=== PATIENT | female | born 1965 | race Caucasian/White ===

== ENCOUNTER 2020-04-24 11:46 | Outpatient (REF) | payer OTHER, SELFPAY ==
[2020-04-24 13:11] LABS: Free T4 (Free Thyroxine) 0.94 ng/dL (0.71-1.85); Thyroid Stimulating Hormone 2.61 uIU/mL (0.32-4.0)
== END 2020-04-24 11:47 | disposition home or self-care (01) ==
LOC: HO.LAB 11:46
PROVIDERS: PCP Internal Medicine; Visit Provider Internal Medicine
DX: E03.9 Hypothyroidism, unspecified (principal)
CPT/HCPCS: 84439; 84443

== ENCOUNTER 2020-05-17 12:40 | Outpatient (REF) | payer OTHER, SELFPAY | END 2020-05-17 12:41 | disposition home or self-care (01) | LOC: HO.LAB 12:40 | PROVIDERS: Visit Provider Nurse Practitioner Family | DX: Z20.828 Contact with and (suspected) exposure to other viral communicable diseases (principal) | CPT/HCPCS: U0003 ==

== ENCOUNTER 2020-05-30 08:45 | Outpatient (REF) | payer OTHER, SELFPAY ==
[2020-05-30 09:37] LABS: Basophils Percent Auto 0.4 % (0-2); Eosinophils Absolute Auto 0.1 X10*3/uL (0.0-0.4); Eosinophils Percent Auto 1.8 % (0-4); Hemoglobin 12.5 g/dl (12.0-16.0); Imm Gran Abs Auto 0.02 X10*3/uL (0.00-0.03); Imm Gran Pct Auto 0.4 % (0.0-0.4); Lymphocytes Absolute Auto 1.9 X10*3/uL (1.2-4.9); Lymphocytes Percent Auto 41.9 % (20-40); MANUAL DIFF FLAG NO; Mean Corpuscular HGB Conc 32.9 g/dl (31.0-35.0); Mean Corpuscular Hemoglobin 31.4 pg (27.0-33.0); Mean Corpuscular Volume 95.5 fL (80-98); Mean Platelet Volume 8.6 fL (9.4-12.3); Monocytes Absolute Auto 0.4 X10*3/uL (0.1-1.2); Monocytes Percent Auto 8.6 % (2-11); Neutrophils Absolute Auto 2.1 X10*3/uL (2.0-8.3); Neutrophils Percent Auto 46.9 % (45-73); Platelet Count 222 X10*3/uL (160-400); Red Blood Count 3.98 X10*6/uL (4.20-5.50); Red Cell Distribution Width 12.4 % (11.0-16.0); White Blood Count 4.6 X10*3/uL (4.8-10.8)
[2020-05-30 10:17] LABS: Cholesterol 158 mg/dL; HDL Cholesterol 76 mg/dL; Iron 109 mcg/dL (30-160); LDL Cholesterol Calculated 69 mg/dl; Percent Iron Saturation 33 % (15-50); Total Iron Binding Capacity 335 mcg/dL (228-428); Triglycerides 69 mg/dL; Unsaturated Iron Binding 226 ug/dL
[2020-05-30 10:24] LABS: Ferritin 58 ng/mL (10-250); Free T4 (Free Thyroxine) 1.13 ng/dL (0.71-1.85); Thyroid Stimulating Hormone 2.62 uIU/mL (0.32-4.0); Vitamin D 25-OH Total 29.6 ng/mL (>30)
== END 2020-05-30 08:46 | disposition home or self-care (01) ==
LOC: HO.LAB 08:45
PROVIDERS: PCP Internal Medicine; Visit Provider Internal Medicine
DX: Z00.01 Encounter for general adult medical examination with abnormal findings (principal); D72.819 Decreased white blood cell count, unspecified; E03.9 Hypothyroidism, unspecified; R76.8 Other specified abnormal immunological findings in serum; D64.9 Anemia, unspecified; Z78.0 Asymptomatic menopausal state; E55.9 Vitamin D deficiency, unspecified
CPT/HCPCS: 36415; 80061; 82306; 82728; 83540; 84439; 84443; 85025

== ENCOUNTER → 2020-06-08 13:24 | Outpatient (BNVA) | payer BC, SELFPAY | PROVIDERS: PCP Internal Medicine; Referring Provider Internal Medicine; Visit Provider Student in an Organized Health Care Education/Training Program | DX: Z13.89 Encounter for screening for other disorder (principal) ==

== ENCOUNTER 2020-08-26 09:42 | Outpatient (REF) | payer BC, SELFPAY ==
[2020-08-26 10:52] LABS: MANUAL DIFF FLAG NO
[2020-08-26 10:56] LABS: Basophils Percent Auto 0.2 % (0-2); Eosinophils Percent Auto 0.9 % (0-4); Hematocrit 37.2 % (37-47); Hemoglobin 12.3 g/dl (12.0-16.0); Imm Gran Abs Auto 0.01 X10*3/uL (0.00-0.03); Imm Gran Pct Auto 0.2 % (0.0-0.4); Lymphocytes Absolute Auto 1.4 X10*3/uL (1.2-4.9); Lymphocytes Percent Auto 33.8 % (20-40); Mean Corpuscular HGB Conc 33.1 g/dl (31.0-35.0); Mean Corpuscular Hemoglobin 31.6 pg (27.0-33.0); Mean Corpuscular Volume 95.6 fL (80-98); Mean Platelet Volume 9.1 fL (9.4-12.3); Monocytes Absolute Auto 0.4 X10*3/uL (0.1-1.2); Monocytes Percent Auto 8.5 % (2-11); Neutrophils Absolute Auto 2.4 X10*3/uL (2.0-8.3); Neutrophils Percent Auto 56.4 % (45-73); Platelet Count 197 X10*3/uL (160-400); Red Blood Count 3.89 X10*6/uL (4.20-5.50); Red Cell Distribution Width 12.7 % (11.0-16.0); White Blood Count 4.3 X10*3/uL (4.8-10.8)
[2020-08-26 11:18] LABS: Glucose Urine UA NEG (NEG); Leukocyte Esterase Urine 1+ (NEG); Nitrite Urine NEG (NEG); PH 6.5 (5.0-8.0); Urine Blood NEG (NEG); Urine Ketones NEG (NEG); Urine Protein NEG (NEG-TRACE)
[2020-08-26 11:22] LABS: Appearance Urine CLEAR; Color Urine YELLOW
[2020-08-26 11:31] LABS: Alanine Aminotransferase 18 U/L (0-31); Albumin Level 4.5 g/dL (3.5-5.0); Alkaline Phosphatase 39 U/L (39-117); Anion Gap 12 (12-20); Aspartate Amino Transferase 22 U/L (5-31); Bilirubin Total 0.8 mg/dL (0.0-1.0); Blood Urea Nitrogen 19 mg/dL (9-16); C Reactive Protein 0.13 mg/dL (< or = 0.50); Calcium 9.1 mg/dL (8.4-10.2); Carbon Dioxide 28 mmol/L (22-29); Chloride 106 mmol/L (96-108); Estimated Glomerular Filt Rate > 60; Glucose Random 65 mg/dL (60-115); Potassium 4.2 mmol/L (3.3-5.1); Sodium 142 mmol/L (135-145); Total Protein 7.1 g/dL (6.5-8.0)
[2020-08-26 11:35] LABS: Bacteria Urine TRACE /LPF; RBC Urine 0-2 /HPF (0); Squamous Epithelial Cell Urine 2+ /LPF
[2020-08-26 12:04] LABS: Erythrocyte Sedimentation Rate 7 MM/HR (0-20)
[2020-08-28 13:21] LABS: Anti DNA DS Antibody <1 IU/mL; SM/Ribonucleoprotein Ab <1.0 NEG AI (<1.0 NEG); Smith Protein <1.0 NEG AI (<1.0 NEG)
[2020-08-29 12:22] LABS: Complement C3 105 mg/dL (83-193)
== END 2020-08-26 09:43 | disposition home or self-care (01) ==
LOC: HO.LAB 09:42
PROVIDERS: PCP Internal Medicine; Visit Provider Student in an Organized Health Care Education/Training Program
DX: R76.8 Other specified abnormal immunological findings in serum (principal)
CPT/HCPCS: 36415; 80053; 81001; 85025; 85652; 86140; 86160; 86225; 86235

== ENCOUNTER 2020-11-16 13:51 | Outpatient (REF) | payer BC, SELFPAY ==
[2020-11-17 21:32] LABS: Lyme Abs Screen <0.90 index
== END 2020-11-16 13:52 | disposition home or self-care (01) ==
LOC: HO.LAB 13:51
PROVIDERS: PCP Internal Medicine; Visit Provider Student in an Organized Health Care Education/Training Program
DX: M25.561 Pain in right knee (principal); M25.562 Pain in left knee; R76.8 Other specified abnormal immunological findings in serum; Z79.899 Other long term (current) drug therapy
CPT/HCPCS: 36415; 86617; 86618

== ENCOUNTER 2021-04-30 09:05 | Outpatient (REF) | payer BC, SELFPAY ==
[2021-04-30 12:10] LABS: Appearance Urine HAZY; Color Urine YELLOW; Glucose Urine UA NEG (NEG); Leukocyte Esterase Urine 1+ (NEG); Nitrite Urine NEG (NEG); Specific Gravity - Urine 1.015 (1.005-1.025); Urine Blood NEG (NEG); Urine Ketones NEG (NEG); Urine Protein NEG (NEG-TRACE)
[2021-04-30 12:34] LABS: Bacteria Urine TRACE /LPF; RBC Urine 0 /HPF (0); Squamous Epithelial Cell Urine 1+ /LPF
[2021-04-30 12:38] LABS: Free T4 (Free Thyroxine) 1.08 ng/dL (0.71-1.85); Thyroid Stimulating Hormone 3.61 uIU/mL (0.32-4.0); Vitamin D 25-OH Total 30.1 ng/mL (>30)
[2021-04-30 12:53] LABS: Alanine Aminotransferase 17 U/L (0-31); Albumin Level 4.6 g/dL (3.5-5.0); Alkaline Phosphatase 40 U/L (39-117); Anion Gap 13 (12-20); Aspartate Amino Transferase 21 U/L (5-31); Bilirubin Total 0.7 mg/dL (0.0-1.0); Blood Urea Nitrogen 10 mg/dL (9-16); Calcium 9.3 mg/dL (8.4-10.2); Carbon Dioxide 26 mmol/L (22-29); Chloride 105 mmol/L (96-108); Cholesterol 176 mg/dL; Estimated Glomerular Filt Rate > 60; Glucose Fasting 95 mg/dL (60-99); HDL Cholesterol 91 mg/dL; LDL Cholesterol Calculated 70 mg/dl; Potassium 4.2 mmol/L (3.3-5.1); Rheumatoid Factor < 15.0 IU/mL (<15.0); Sodium 140 mmol/L (135-145); Total Protein 7.3 g/dL (6.5-8.0); Triglycerides 77 mg/dL
[2021-04-30 13:17] LABS: Folate 18.3 ng/mL (> or = 4.0); Vitamin B12 409 pg/mL (200-900)
[2021-05-01 20:52] LABS: Anti Nuclear Antibody Screen POSITIVE (NEGATIVE)
== END 2021-04-30 09:06 | disposition home or self-care (01) ==
LOC: HO.HMGCLDS 09:05
PROVIDERS: Student in an Organized Health Care Education/Training Program; Visit Provider Internal Medicine
DX: Z00.01 Encounter for general adult medical examination with abnormal findings (principal); M25.561 Pain in right knee; M25.562 Pain in left knee; D72.819 Decreased white blood cell count, unspecified; E03.9 Hypothyroidism, unspecified; E55.9 Vitamin D deficiency, unspecified; K58.2 Mixed irritable bowel syndrome; R76.8 Other specified abnormal immunological findings in serum
CPT/HCPCS: 36415; 80053; 80061; 81001; 82306; 82607; 82746; 84439; 84443; 86038; 86039; 86431

== ENCOUNTER 2022-04-30 11:47 | Outpatient (REF) | payer BC, SELFPAY ==
[2022-04-30 12:34] LABS: Influenza A PCR NEGATIVE (Negative); Influenza B PCR NEGATIVE (Negative); Resp Syncy Virus RNA Qual PCR NEGATIVE (Negative); SARS COV2 PCR INHOUSE NEGATIVE (Negative)
== END 2022-04-30 11:48 | disposition home or self-care (01) ==
LOC: HO.LNP 11:47
PROVIDERS: Visit Provider Nurse Practitioner Family
DX: R09.89 Other specified symptoms and signs involving the circulatory and respiratory systems (principal); Z20.822 Contact with and (suspected) exposure to COVID-19
CPT/HCPCS: 0241U

== ENCOUNTER 2022-05-03 07:56 | Outpatient (AMB) | payer BC, SELFPAY ==
--- NOTE | 2022-05-03 08:01 | MHC.PC.OV ---
Vital Signs 05/03/22 08:07 Height 5 ft 6 in Weight 135 lb BMI 21.7 BP 114/70 Blood Pressure Location Rt brachial Position Sitting Pulse 75 Pulse Source Pulse Oximeter Pulse Oximetry (%) 100 Oxygen Delivery Method Room Air Intake Visit Reasons: annual PE Intake Note: Pt is here today for her PE Allergies Sulfa (Sulfonamide Antibiotics) Allergy (Intermediate, Verified 02/27/23 09:48) Rash cephalexin [From KEFLEX] Allergy (Unknown, Verified 02/27/23 09:48) HIVES methylprednisolone [Medrol] Adverse Reaction (Unknown, Verified 02/27/23 09:48) grandiosity prednisone Adverse Reaction (Unknown, Verified 02/27/23 09:48) grandiosity Medication List - Last Reconciled 02/27/23 by Chari Rabago MD cholecalciferol (vitamin D3) 25 mcg PO DAILY estradiol 0.01%(0.1mg/gram) 1 appful vaginal 2XW lactobacillus combination no.9 (Adult 50 Plus Probiotic) 4,000 mmu cells PO DAILY levothyroxine 75 mcg PO DAILY valacyclovir 2,000 mg (2 x 1 gram) PO Q12H PRN valacyclovir 2,000 mg (2 x 1 gram) PO Q12H PRN Tobacco use date assessed: 05/03/22 HPI annual PE HPI Details 57-year-old lady here today for her physical exam. Do today complaining of frontal headaches, nasal congestion and year over sinuses. No fever accompanying above symptoms PFSH Medical History (Updated 02/27/23 @ 13:08 by Chari Rabago MD) History of diverticulitis of colon Irritable bowel syndrome with constipation and diarrhea SALLY positive Menopause Annual visit for general adult medical examination with abnormal findings Chronic leukopenia SALLY positive Cyst of right breast Narrow angle glaucoma suspect Recurrent cold sores Acquired hypothyroidism Surgical History H/O colonoscopy Diverticulitis History of back surgery Family History Father Smoker CVD (cardiovascular disease) HTN (hypertension) Mother HTN (hypertension) CVD (cardiovascular disease) Pancreatic cancer Mental health disorder Maternal Grandfather Depression Cervical cancer Maternal Grandmother Alcoholism Paternal Grandfather Alcoholism Paternal Grandmother No problems noted. 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 1. Little interest or pleasure in doing things: not at all 2. Feeling down, depressed, or hopeless: not at all 3. Trouble falling or staying asleep, or sleeping too much: not at all 4. Feeling tired or having little energy: several days 5. Poor appetite or overeating: not at all 6. Feeling bad about yourself - or that you are a failure or have let yourself or your family down: not at all 7. Trouble concentrating on things, such as reading the newspaper or watching television: not at all 8. Moving or speaking so slowly that other people could have noticed. Or the opposite - being so fidgety or restless that you have been moving around a lot more than usual: not at all 9. Thoughts that you would be better off or of hurting yourself in some way: not at all Total score: 1 Depression Screening Interpretation: Negative 75476 - PHQ-9 Billing: Yes Source: Developed by Drs. Victorino Burroughs, Sara Santos, Brody Rodriguez and colleagues, with an educational tami from [employer]. Thrive Questionnaire Date Thrive assessed: 05/03/22 I am a: Patient What is your living situation today?: I have a steady place to live Within the past 12 months, did the food you bought not last and you didn't have the money to get more?: Never true Within the past 12 months, did you worry whether your food would run out before you got money to buy more?: Never true Do you have trouble paying for medicines?: No Do you have trouble getting transportation to medical appointments?: No Do you have trouble paying your heating and electricity bill?: No Do you have trouble taking care of your child, family member or friend?: No Do you have trouble with day-to-day activities such as bathing, preparing meals, shopping, managing finances, etc.?: No Are you currently unemployed and looking for a job?: No Are you interested in more education?: No Currently or been in a relationship where the following occur: no concerns reported AUDIT C Alcohol Use Questionnaire (AUDIT-C) 1. How often do you have a drink containing alcohol?: 2-3 times a week 3. How often do you have six or more drinks on one occasion?: Never Total Score: 3 ERICK-7 AMB Questionnaire ERICK-7 Date ERICK - 7 assessed: 05/03/22 Feeling nervous, anxious, or on edge: 0 = Not at all Not being able to stop or control worryin = Not at all Worrying too much about different things: 0 = Not at all Trouble relaxin = Not at all Being so restless that it is hard to sit still: 0 = Not at all Becoming easily annoyed or irritable: 0 = Not at all Feeling afraid as if something awful might happen: 0 = Not at all Total ERICK-7 score (0-4 normal; 5-9 mild; 10-14 moderate; 15-21 severe): 0 Source: Developed by Drs. Victorino Burroughs, Sara Santos, Brody Rodriguez and colleagues, with an educational tami from [employer]. ERICK-7 Assessment Billing ERICK-7 Assessment Tool: ERICK-7 Assessment 80091 Review of Systems Const Denies body aches, Denies fatigue, Denies fever(s), Denies headache(s) and Denies weakness Eyes Denies change in vision, Denies eye discharge and Denies itchy eyes ENT Reports as per HPI, Reports Normal hearing present, Denies dizziness, Denies ear discharge, Denies headache(s), Reports nasal congestion, Reports nasal discharge, Reports sinus pain, Reports sinus pressure and Denies sore throat Card Denies chest pain, Denies lightheadedness, Denies palpitations and Denies dyspnea Resp Denies chest congestion, Denies cough, Denies dyspnea and Denies wheezing GI Denies melena, Denies hematochezia, Denies heartburn and Denies nausea Denies urinary frequency, Denies dysuria and Denies urinary urgency Musc Details: occasional knee pain Skin/Breast Denies lesions and Denies rash Neuro Reports Normal hearing present, Denies dizziness, Denies headache(s), Denies Sensory deficit (Neuro) and Denies weakness Psych Reports no additional complaints Endo Denies fatigue, Denies polydipsia, Denies polyuria and Denies palpitations Claude/Lymph Denies easy bruising Aller/Immun Denies itchy eyes, Denies seasonal rhinorrhea and Denies wheezing Physical exam (Primary Care) Vital Signs: Last Vital Signs Pulse 75 05/03/22 08:07 BP 114/70 05/03/22 08:07 Pulse Ox 100 05/03/22 08:07 Oxygen Delivery Method Room Air 05/03/22 08:07 BMI result Body Mass Index 21.7 Tobacco/Smoking Status: Tobacco use Status Tobacco use date assessed 05/03/22 05/03/22 08:09 Patient Tobacco Use Status Never used Tobacco 05/03/22 08:03 e-Cigarette/Vaping Use Never Used 05/03/22 08:03 PHQ-9: PHQ-9 Score PHQ-9: Total score 1 05/03/22 08:47 Depression Screening Interpretation: Negative Thrive Assessment: Date of Thrive Assessment Date Thrive assessed 05/03/22 05/03/22 08:09 Currently or been in a relationship where the following occur: no concerns reported Const General: cooperative, healthy appearing, no acute distress and alert Orientation/consciousness: patient oriented x3 HENMT Head: Yes normocephalic Ears: external ears normal General nose exam: Normal external nose present Face and sinus: Yes sinus tenderness (maxillary) Mouth: Normal oral and palatal mucosa present, oropharynx normal and moist mucous membranes Throat: Yes posterior oropharynx normal Eyes General: appearance normal, both eyes and all related structures Neck Neck: Yes full ROM and Yes no lymphadenopathy Chest Breast/axilla palpation: normal palpation of the breasts Resp Effort & Inspection: normal respiratory effort and able to speak in complete sentences Auscultation: clear to auscultation bilaterally Cardio Rate: regular rate Rhythm: regular rhythm Heart sounds: S1 normal heart sound present and S2 normal heart sound present GI Inspection: Yes normal to inspection Palpation (GI): Soft to palpation Auscultation: normal bowel sounds General: Yes no CVA tenderness Back/Spine/Pelvis Back: no CVA tenderness and No back tenderness Skin General skin exam: no rashes or lesions noted Neuro General: patient oriented x3, gait normal, moves all extremities, no focal motor deficits and CN's II-XI intact bilaterally Cranial nerves: Yes Normal hearing present Cognition (Neuro): normal cognition Gait exam (Neuro): Normal gait present Motor exam (neuro): 5/5 motor strength present throughout Sensory Exam: No Sensory deficit (Neuro) Extrem General: Yes normal to inspection, Yes full ROM, Yes no joint enlargement, Yes no pedal edema, Yes no calf tenderness and Yes normal gait Psych Appearance: grossly normal and well kempt Mental Status: mental status grossly normal Speech and movement: Normal speech and movement present Affect: normal affect Attitude: cooperative Thought process: Normal thought process present Thought content: Normal thought content present Assessment and Plan Assessment & Plan (1) Annual visit for general adult medical examination with abnormal findings: Code(s): Z00.01 - Encounter for general adult medical examination with abnormal findings Plan: Will check appropriate labs. Continue regular dental visit every 6 months and regular eye exams, at least every 2 years. Take adequate calcium in diet and vitamin-D 3 at 2000 IU per cap once a day, in addition to weight-bearing exercises to help maintain good muscle tone and weight control. Continue to do self-breast exam, and get yearly mammogram up-to-date with her vaccinations and colonoscopy screening (2) Acute sinusitis: Code(s): J01.90 - Acute sinusitis, unspecified Qualifiers: Sinusitis location: unspecified location Recurrence: non-recurrent Qualified Code(s): J01.90 - Acute sinusitis, unspecified Plan: Prescription sent for azithromycin pack to take as directed (3) Irritable bowel syndrome with constipation and diarrhea: Code(s): K58.2 - Mixed irritable bowel syndrome Plan: Followed by GI, increase dietary fiber intake, get regular exercise (4) Vitamin D deficiency: Code(s): E55.9 - Vitamin D deficiency, unspecified (5) Chronic leukopenia: Comment: Followed by Dr. Valenzuela Code(s): D72.819 - Decreased white blood cell count, unspecified Plan: Ordered a repeat CBC with differential (6) Recurrent cold sores: Code(s): B00.1 - Herpesviral vesicular dermatitis Plan: Takes Valtrex as needed (7) Acquired hypothyroidism: Code(s): E03.9 - Hypothyroidism, unspecified Plan: TSH and free T4 ordered, currently on levothyroxine 75 mcg daily Orders: Orders Thyroid Stimulating Hormone 05/03/22 J01.90 - Acute sinusitis, unspecified, K58.2 - Mixed irritable bowel syndrome, Z78.0 - Asymptomatic menopausal state, E55.9 - Vitamin D deficiency, unspecified, D64.9 - Anemia, unspecified, Z00.01 - Encounter for general adult medical examination with abnormal findings, D72.819 - Decreased white blood cell count, unspecified, B00.1 - Herpesviral vesicular dermatitis, E03.9 - Hypothyroidism, unspecified Vitamin B12 and Folate 05/03/22 J01.90 - Acute sinusitis, unspecified, K58.2 - Mixed irritable bowel syndrome, Z78.0 - Asymptomatic menopausal state, E55.9 - Vitamin D deficiency, unspecified, D64.9 - Anemia, unspecified, Z00.01 - Encounter for general adult medical examination with abnormal findings, D72.819 - Decreased white blood cell count, unspecified, B00.1 - Herpesviral vesicular dermatitis, E03.9 - Hypothyroidism, unspecified Aspartate Amino Transferase 05/03/22 J01.90 - Acute sinusitis, unspecified, K58.2 - Mixed irritable bowel syndrome, Z78.0 - Asymptomatic menopausal state, E55.9 - Vitamin D deficiency, unspecified, D64.9 - Anemia, unspecified, Z00.01 - Encounter for general adult medical examination with abnormal findings, D72.819 - Decreased white blood cell count, unspecified, B00.1 - Herpesviral vesicular dermatitis, E03.9 - Hypothyroidism, unspecified Complete Blood Count Auto Diff 05/03/22 J01.90 - Acute sinusitis, unspecified, K58.2 - Mixed irritable bowel syndrome, Z78.0 - Asymptomatic menopausal state, E55.9 - Vitamin D deficiency, unspecified, D64.9 - Anemia, unspecified, Z00.01 - Encounter for general adult medical examination with abnormal findings, D72.819 - Decreased white blood cell count, unspecified, B00.1 - Herpesviral vesicular dermatitis, E03.9 - Hypothyroidism, unspecified Vitamin D 25-OH Total 05/03/22 J01.90 - Acute sinusitis, unspecified, K58.2 - Mixed irritable bowel syndrome, Z78.0 - Asymptomatic menopausal state, E55.9 - Vitamin D deficiency, unspecified, D64.9 - Anemia, unspecified, Z00.01 - Encounter for general adult medical examination with abnormal findings, D72.819 - Decreased white blood cell count, unspecified, B00.1 - Herpesviral vesicular dermatitis, E03.9 - Hypothyroidism, unspecified Lipid Panel 05/03/22 J01.90 - Acute sinusitis, unspecified, K58.2 - Mixed irritable bowel syndrome, Z78.0 - Asymptomatic menopausal state, E55.9 - Vitamin D deficiency, unspecified, D64.9 - Anemia, unspecified, Z00.01 - Encounter for general adult medical examination with abnormal findings, D72.819 - Decreased white blood cell count, unspecified, B00.1 - Herpesviral vesicular dermatitis, E03.9 - Hypothyroidism, unspecified Free T4 (Free Thyroxine) 05/03/22 E03.9 - Hypothyroidism, unspecified, J01.90 - Acute sinusitis, unspecified, K58.2 - Mixed irritable bowel syndrome, Z78.0 - Asymptomatic menopausal state, E55.9 - Vitamin D deficiency, unspecified, D64.9 - Anemia, unspecified, Z00.01 - Encounter for general adult medical examination with abnormal findings, D72.819 - Decreased white blood cell count, unspecified, B00.1 - Herpesviral vesicular dermatitis Alanine Aminotransferase 05/03/22 J01.90 - Acute sinusitis, unspecified, K58.2 - Mixed irritable bowel syndrome, Z78.0 - Asymptomatic menopausal state, E55.9 - Vitamin D deficiency, unspecified, D64.9 - Anemia, unspecified, Z00.01 - Encounter for general adult medical examination with abnormal findings, D72.819 - Decreased white blood cell count, unspecified, B00.1 - Herpesviral vesicular dermatitis, E03.9 - Hypothyroidism, unspecified Basic Metabolic Panel Fasting 05/03/22 J01.90 - Acute sinusitis, unspecified, K58.2 - Mixed irritable bowel syndrome, Z78.0 - Asymptomatic menopausal state, E55.9 - Vitamin D deficiency, unspecified, D64.9 - Anemia, unspecified, Z00.01 - Encounter for general adult medical examination with abnormal findings, D72.819 - Decreased white blood cell count, unspecified, B00.1 - Herpesviral vesicular dermatitis, E03.9 - Hypothyroidism, unspecified Medications: New valacyclovir 2,000 mg (2 x 1 gram) PO Q12H PRN 4 tabs 6RF cold sore azithromycin For 250 mg dose pack: take 500 mg today (day 1), then 250 mg for 4 days (days 2-5) PO 6 tabs 0RF levocetirizine 5 mg PO QPM PRN 30 tabs 2RF allergy symptoms Coding Level of Care Code Est Pt Prev Care 40-64y(66794) Diagnoses Annual visit for general adult medical examination with abnormal findings Z00.01 Acute non-recurrent sinusitis, unspecified location J01.90 Sinusitis location: unspecified location Recurrence: non-recurrent Irritable bowel syndrome with constipation and diarrhea K58.2 Vitamin D deficiency E55.9 Chronic leukopenia D72.819 Recurrent cold sores B00.1 Acquired hypothyroidism E03.9 Additional Codes ERICK-7 Assessment Billing - ERICK-7 Assessment Tool: ERICK-7 Assessment [id number] ([id number])
[2022-05-03 08:07] VITALS: BP 114/70; PULSE 75; O2SAT 100; BMI 21.7
== END 2022-05-03 08:43 | disposition home or self-care (01) ==
LOC: HO.HMGC 07:56
PROVIDERS: PCP Internal Medicine; Visit Provider Internal Medicine
DX: Z00.00 Encounter for general adult medical examination without abnormal findings (principal); J01.90 Acute sinusitis, unspecified; K58.2 Mixed irritable bowel syndrome; E55.9 Vitamin D deficiency, unspecified; D72.819 Decreased white blood cell count, unspecified; B00.1 Herpesviral vesicular dermatitis; E03.9 Hypothyroidism, unspecified
CPT/HCPCS: 99396

== ENCOUNTER 2022-05-03 08:45 | Outpatient (REF) | payer BC, SELFPAY ==
[2022-05-03 11:29] LABS: MANUAL DIFF FLAG NO
[2022-05-03 11:46] LABS: Basophils Percent Auto 0.2 % (0-2); Eosinophils Absolute Auto 0.1 X10*3/uL (0.0-0.4); Eosinophils Percent Auto 0.9 % (0-4); Hematocrit 37.7 % (37.0-47.0); Hemoglobin 12.6 g/dl (12.0-16.0); Imm Gran Abs Auto 0.01 X10*3/uL (0.00-0.03); Imm Gran Pct Auto 0.2 % (0.0-0.4); Lymphocytes Absolute Auto 1.3 X10*3/uL (1.2-4.9); Lymphocytes Percent Auto 23.2 % (20-40); Mean Corpuscular HGB Conc 33.4 g/dl (31.0-35.0); Mean Corpuscular Hemoglobin 31.4 pg (27.0-33.0); Mean Platelet Volume 9.2 fL (9.4-12.3); Monocytes Absolute Auto 0.6 X10*3/uL (0.1-1.2); Neutrophils Absolute Auto 3.8 x10*3/uL (2.0-8.3); Neutrophils Percent Auto 65.5 % (45-73); Platelet Count 246 X10*3/uL (160-400); Red Blood Count 4.01 X10*6/uL (4.20-5.50); Red Cell Distribution Width 12.5 % (11.0-16.0); White Blood Count 5.8 X10*3/uL (4.8-10.8)
[2022-05-03 12:39] LABS: Alanine Aminotransferase 15 U/L (0-31); Aspartate Amino Transferase 21 U/L (5-31); Blood Urea Nitrogen 10 mg/dL (9-16); Calcium 9.6 mg/dL (8.4-10.2); Cholesterol 173 mg/dL; Estimated Glomerular Filt Rate > 60; Free T4 (Free Thyroxine) 1.09 ng/dL (0.71-1.85); Glucose Fasting 97 mg/dL (60-99); HDL Cholesterol 90 mg/dL; LDL Cholesterol Calculated 73 mg/dl; Thyroid Stimulating Hormone 3.63 uIU/mL (0.32-4.0); Triglycerides 54 mg/dL; Vitamin D 25-OH Total 35.5 ng/mL (>30)
[2022-05-03 12:59] LABS: Folate 14.9 ng/mL (> or = 4.0); Vitamin B12 515 pg/mL (200-900)
[2022-05-03 14:28] LABS: Anion Gap 11 (12-20); Carbon Dioxide 30 mmol/L (22-29); Chloride 100 mmol/L (96-108); Potassium 4.2 mmol/L (3.3-5.1); Sodium 137 mmol/L (135-145)
== END 2022-05-03 08:46 | disposition home or self-care (01) ==
LOC: HO.HMGCLDS 08:45
PROVIDERS: PCP Internal Medicine; Visit Provider Internal Medicine
DX: Z00.01 Encounter for general adult medical examination with abnormal findings (principal); B00.1 Herpesviral vesicular dermatitis; D64.9 Anemia, unspecified; D72.819 Decreased white blood cell count, unspecified; E03.9 Hypothyroidism, unspecified; E55.9 Vitamin D deficiency, unspecified; J01.90 Acute sinusitis, unspecified; K58.2 Mixed irritable bowel syndrome; Z78.0 Asymptomatic menopausal state
CPT/HCPCS: 36415; 80048; 80061; 82306; 82607; 82746; 84439; 84443; 84450; 84460; 85025

== ENCOUNTER 2023-02-10 06:35 | Emergency (ER) | payer BC, SELFPAY ==
--- NOTE | ~2023-02-10 | CT_ITS ---
EXAMINATION: CT ABDOMEN AND PELVIS WITH CONTRAST CLINICAL INFORMATION: Left lower quadrant pain. Nausea. COMPARISON: 01/06/2020 TECHNIQUE: Multidetector volumetric images were obtained from the superior aspect of the liver through the pubic symphysis following administration 85 mL of Omnipaque 350 intravenous contrast. Sagittal and coronal reformatted images were obtained on the technologist's workstation. Oral contrast: No This CT examination was performed using dose optimization techniques as appropriate, variously including the following: *Automated exposure control *Adjustment of mA and/or kV according to patient size (this includes techniques or standardized protocols for targeted exams where dose is matched to indication/reason for exam; i.e. extremities or head) *Use of iterative reconstruction technique DLP: 467 mGy-cm FINDINGS: LUNG BASES: The visualized lung bases are unremarkable. LIVER, GALLBLADDER, AND BILIARY TREE: The liver is normal in size and contour. No significant biliary ductal dilatation is present. The gallbladder is unremarkable with no evidence of radiopaque gallstones, gallbladder wall thickening, or obvious pericholecystic inflammatory changes. PANCREAS: Unremarkable. SPLEEN: Unremarkable. ADRENAL GLANDS: Unremarkable. KIDNEYS AND URETERS: The kidneys are symmetric in size and enhancement. 1.6 cm indeterminate hypodensity interpolar region of the right kidney. Punctate nonobstructing right renal calculus. BLADDER: Unremarkable. GASTROINTESTINAL TRACT: There is wall thickening and submucosal enhancement of the sigmoid colon in the left lower quadrant. There is surrounding pericolonic inflammatory change. There is evidence of underlying diverticular disease. No small bowel obstruction. ABDOMINAL WALL: No significant hernia is appreciated. LYMPH NODES: No bulky abdominal or pelvic lymphadenopathy. VASCULAR: Normal caliber abdominal aorta. PELVIC VISCERA: Prominence of the left parametrial veins. Small free fluid in pelvis. OSSEOUS STRUCTURES: No destructive bone lesions. CT/CT abdomen pelvis w IV con IMPRESSION: Wall thickening of the sigmoid colon with submucosal enhancement and surrounding pericolonic inflammatory change. Given the presence of underlying diverticular, this most likely represents acute diverticulitis. Follow-up imaging after treatment is advised. Indeterminate 1.6 cm hypodensity interpolar region of the right kidney. Advise correlation with dedicated renal ultrasound.
[2023-02-10 06:50] VITALS: BMI 21.8
[2023-02-10 06:51] VITALS: BP 138/59; PULSE 77; RESP 16; TEMP 36.6; O2SAT 98
[2023-02-10 07:15] VITALS: BP 121/53; PULSE 74; RESP 16; TEMP 36.6; O2SAT 96
--- NOTE | 2023-02-10 07:35 | ED_ITS ---
HPI - Abdominal Pain General Chief Complaint: Abdominal Pain Stated Complaint: abdominal pain, possible diverticulitis Time Seen by Provider: 02/10/23 07:30 Source: patient, RN notes reviewed and old records reviewed Mode of arrival: ambulatory History of Present Illness HPI narrative: 57-year-old female with a past medical history anemia, diverticulosis/diverticulitis, hypothyroid, presenting to the ED complaining of left lower quadrant abdominal pain, nausea, and decreased p.o. intake x3 days. Reports watery diarrhea this morning. Denies fever/chills, vomiting, dysuria/hematuria, flank pain MD elicited complaint: abdominal pain Related Data Home Medications Medication Instructions Recorded Confirmed flu vac [id number] 36mos up(PF) 60 ml IM 04/25/20 04/30/21 mcg (15 mcg x4)/0.5 mL IM syringe psyllium husk 3.4 gram/5.4 gram 1 tbsp PO DAILY 04/25/20 04/30/21 oral powder (Metamucil) cholecalciferol (vitamin D3) 50 50 mcg PO DAILY 05/03/22 mcg (2,000 unit) capsule lactobacillus combination no.9 4 4,000 mmu cells PO DAILY 05/03/22 billion cell capsule (Adult 50 Plus Probiotic) Previous Rx's Medication Instructions Recorded azithromycin 250 mg tablet See Rx Instructions PO .COMPLEX #6 05/03/22 tabs levocetirizine 5 mg tablet 5 mg PO QPM PRN allergy symptoms 05/03/22 #30 tabs levothyroxine 50 mcg tablet 50 mcg PO DAILY #90 tabs 05/03/22 valacyclovir 1 gram tablet 2,000 mg (2 x 1 gram) PO Q12H PRN 05/03/22 cold sore #4 tabs amoxicillin 875 mg-potassium 1 tab PO BID 7 days #14 tabs 02/10/23 clavulanate 125 mg tablet Allergies Allergy/AdvReac Type Severity Reaction Status Date / Time Sulfa (Sulfonamide Allergy Intermediate Rash Verified 05/03/22 08:04 Antibiotics) cephalexin [From KEFLEX] Allergy Unknown HIVES Verified 05/03/22 08:04 methylprednisolone [Medrol] AdvReac Unknown grandiosity Verified 05/03/22 08:04 prednisone AdvReac Unknown grandiosity Verified 05/03/22 08:04 Review of Systems Review of Systems Constitutional: No Fever, No Chills, No Fatigue, No Malaise ENT/Mouth: No Ear Pain, No Nasal Congestion, No sore throat, No Rhinorrhea, No Swallowing Difficulty Eyes: No Eye Pain, No Swelling, No Redness, No Vision Changes Cardiovascular: No Chest Pain, No SOB, No Palpitations Respiratory: No Cough, No Dyspnea Gastrointestinal: + Nausea, No Vomiting, +Diarrhea, No Constipation, +Abdominal pain, No Hematochezia, No Melena Genitourinary: No Dysuria, No Urinary Frequency, No Hematuria, No Urinary Incontinence/retention, No Urgency, No Flank Pain Musculoskeletal: No joint pain, No Myalgias, No Joint Swelling Skin: No Skin Lesions, No rash Neuro: No Weakness, No Dizziness, No Headache Yes all other systems are reviewed and are negative Constitutional: Reports as per [facility] Past Medical History Attestation statement: The following information was validated with the patient. Source: old records reviewed Medical History (Updated 02/10/23 @ 11:02 by ALIE Calzada) Acute sinusitis Irritable bowel syndrome with constipation and diarrhea SALLY positive Menopause Vitamin D deficiency Anemia Annual visit for general adult medical examination with abnormal findings Chronic leukopenia SALLY positive Cyst of right breast Narrow angle glaucoma suspect Recurrent cold sores Acquired hypothyroidism Surgical History H/O colonoscopy Diverticulitis History of back surgery Family History Family History Father Smoker CVD (cardiovascular disease) HTN (hypertension) Mother HTN (hypertension) CVD (cardiovascular disease) Pancreatic cancer Mental health disorder Maternal Grandfather Depression Cervical cancer Maternal Grandmother Alcoholism Paternal Grandfather Alcoholism Paternal Grandmother No problems noted. 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 [employer] Cognitive needs: No Hearing needs: No Vision needs: Yes Physical Exam ED Vital Signs: Vital Signs - 24 hr 02/10/23 06:51 02/10/23 07:15 02/10/23 09:31 Temperature 97.8 F 97.8 F 99.0 F Pulse Rate 77 74 74 Respiratory Rate 16 16 18 Blood Pressure 138/59 L 121/53 L 133/62 Pulse Oximetry 98 96 96 Oxygen Delivery Method Room Air Room Air Room Air 02/10/23 11:25 Temperature 98.0 F Pulse Rate 70 Respiratory Rate 17 Blood Pressure 105/40 L Pulse Oximetry 97 Oxygen Delivery Method Room Air BMI result Body Mass Index 21.8 Const General: cooperative, healthy appearing and no acute distress Orientation/consciousness: patient oriented x3 Limitations: no limitations HENMT Head: Yes normal to inspection and Yes atraumatic Ears: hearing grossly normal bilaterally General nose exam: Normal external nose present Face and sinus: Yes normal facial exam Eyes General: appearance normal, both eyes and all related structures EOM: EOMs intact bilaterally Neck Neck: Yes normal visual inspection and Yes no meningeal signs Resp Effort & Inspection: normal respiratory effort and no respiratory distress Auscultation: clear to auscultation bilaterally Cardio Rate: regular rate Heart sounds: S1 normal heart sound present and S2 normal heart sound present GI Inspection: Yes normal to inspection Palpation (GI): Soft to palpation, Tenderness to palpation present (GI) in the LLQ; with no rebound tenderness, no guarding and not rigid General: Yes no CVA tenderness Back/Spine/Pelvis Back: no CVA tenderness Skin Rashes: no rashes Wounds: no wounds Neuro General: patient oriented x3, tone normal and no meningeal signs Cranial nerves: Yes CN's II-XII intact bilaterally Gait exam (Neuro): Normal gait present Extrem General: Yes normal to inspection Course Course Course Narrative: -labs reassuring CT abdomen pelvis w IV con IMPRESSION: Wall thickening of the sigmoid colon with submucosal enhancement and surrounding pericolonic inflammatory change. Given the presence of underlying diverticular, this most likely represents acute diverticulitis. Follow-up imaging after treatment is advised. Indeterminate 1.6 cm hypodensity interpolar region of the right kidney. Advise correlation with dedicated renal ultrasound. > results discussed with patient including incidental finding. Patient reports mild symptomatic improvement, tolerating p.o. in the ED, feels safe for discharge home with close GI follow-up Medical Decision Making Medical Decision Making MDM Narrative: 57-year-old female with a past medical history anemia, diverticulosis/diverticulitis, hypothyroid, presenting to the ED complaining of left lower quadrant abdominal pain, nausea, and decreased p.o. intake x3 days. On exam vital signs stable, NAD, nontoxic appearing, abdomen soft with LLQ tenderness, no rebound or guarding, no CVAT. Concern for diverticulitis vs colitis vs appendicitis vs UTI. Lower suspicion for renal stone/pyelo, pancreatitis, cholecystitis/cholelithiasis or ACS Plan: Labs, UA, CTAP, IVF, Pain control Please refer to course for remaining clinical decision making, interpretation of labs/imaging results, and discussions with consultants and/or family members. Differential Diagnosis Differential Diagnoses: The differential diagnosis associated with the presentation includes As above Admission/Observation Consideration of admission/observation: Escalation of care including admission/observation considered Lab Data MDM Lab Attestation statement: I reviewed the patient's lab results. 02/10/23 07:55 02/10/23 07:55 Labs: Lab Results 02/10/23 02/10/23 Range/Units 07:55 09:33 WBC 8.7 (4.8-10.8) X10*3/uL RBC 4.13 L (4.20-5.50) X10*6/uL Hgb 13.1 (12.0-16.0) g/dl Hct 37.5 (37.0-47.0) % MCV 90.8 (80.0-98.0) fL MCH 31.7 (27.0-33.0) pg MCHC 34.9 (31.0-35.0) g/dl RDW 12.3 (11.0-16.0) % Plt Count 191 (160-400) X10*3/uL MPV 8.9 L (9.4-12.3) fL Immature Gran % (Auto) 0.2 (0.0-0.4) % Neut % (Auto) 82.4 H (45-73) % Lymph % (Auto) 10.5 L (20-40) % Steele % (Auto) 6.6 (2-11) % Eos % (Auto) 0.1 (0-4) % Baso % (Auto) 0.2 (0-2) % Lymph # (Auto) 0.9 L (1.2-4.9) X10*3/uL Steele # (Auto) 0.6 (0.1-1.2) X10*3/uL Eos # (Auto) 0.0 (0.0-0.4) X10*3/uL Baso # (Auto) 0.0 (0.0-0.2) X10*3/uL Abs Immat Gran (auto) 0.02 (0.00-0.03) X10*3/uL Absolute Neuts (auto) 7.1 (2.0-8.3) x10*3/uL Absolute Nucleated RBC 0.000 (0.0-0.012) X10*3/uL Nucleated RBC % (auto) 0.0 (0.0-0.2) /100WBC Sodium 141 (135-145) mmol/L Potassium 4.8 (3.3-5.1) mmol/L Chloride 106 (96-108) mmol/L Carbon Dioxide 26 (22-29) mmol/L Anion Gap 14 (12-20) BUN 8 L (9-16) mg/dL Creatinine 0.66 (0.5-1.4) mg/dL Estim Creat Clear Calc 85.9 Estimated GFR > 60 Random Glucose 105 (60-115) mg/dL Calcium 9.9 (8.4-10.2) mg/dL Magnesium 2.1 (1.6-2.6) mg/dL Total Bilirubin 1.4 H (0.0-1.0) mg/dL Direct Bilirubin 0.5 (0.0-0.5) mg/dL AST 18 (5-31) U/L ALT 14 (0-31) U/L Alkaline Phosphatase 42 (39-117) U/L Total Protein 7.4 (6.5-8.0) g/dL Albumin 4.4 (3.5-5.0) g/dL Lipase 11 (8-78) U/L Urine Color Yellow Urine Appearance Clear Urine pH 7.0 (5.0-9.0) Ur Specific [place] >= 1.030 H (1.005-1.025) Urine Protein Negative (Neg-Trace) mg/dL Urine Glucose (UA) Negative (Negative) mg/dL Urine Ketones 15 (Negative) mg/dL Urine Blood Negative (Negative) Urine Nitrite Negative (Negative) Ur Leukocyte Esterase Trace H (Negative) Urine RBC 0-2 (0-2) /HPF Urine WBC 0-5 (0-5) /HPF Ur Squamous Epith Cells 3-5 (0-2) /HPF Urine Bacteria None Seen (None Seen) Hyaline Casts 0-2 (0-2) /LPF Radiology Impression Discussion of test interpretation with radiology: I have reviewed the radiologist's reading. Independent Historian Clinical information obtained from an independent historian. History obtained from or confirmed by: Spouse External Record Review External record reviewed: Inpatient record, Office record, Outpatient record, Prior outpatient labs, Prior outpatient radiology, Primary care record and Outside ED record Tests considered The following testing was considered but not selected: As above Prescription Management I considered prescription management with: Pain Medication Chronic Conditions Patient?s care impacted by: Other (Diverticulosis) Medications Administered Discontinued Medications Generic Name Dose Route Start Last Admin Trade Name Freq PRN Reason Stop Dose Admin Sodium Chloride 1,000 mls @ 999 mls/hr 02/10/23 08:00 02/10/23 08:58 Ns IV 02/10/23 09:00 Infused .Q1H1M KRISTINA Infusion Iohexol 100 ml 02/10/23 09:15 02/10/23 09:16 Iohexol 350 Mg/Ml 100 Ml Infus..Btl IV 02/10/23 09:16 85 ml ONCE ONE Administration Ketorolac Tromethamine 15 mg 02/10/23 07:49 02/10/23 08:01 Ketorolac Tromethamine 15 Mg/Ml Vial IVPUSH 02/10/23 07:50 15 mg ONCE ONE Administration Ketorolac Tromethamine 15 mg 02/10/23 11:00 02/10/23 11:27 Ketorolac Tromethamine 15 Mg/Ml Vial IVPUSH 02/10/23 11:01 15 mg ONCE ONE Administration Ondansetron HCl 4 mg 02/10/23 07:49 02/10/23 08:01 Ondansetron Hcl 4 Mg/2 Ml Vial IVPUSH 02/10/23 07:50 4 mg ONCE ONE Administration Discharge Plan Discharge Clinical Impression: Diverticulitis Patient Disposition: Home, Self-Care Instructions: Diverticulitis (ED), Diverticulitis Diet (ED) Additional Instructions: You have acute diverticulitis Augmentin as an antibiotic please take as prescribed Take Tylenol /Motrin as needed for pain If symptoms persist or worsen, your unable to tolerate food or drink, have persistent or worsening pain or develops fever return to the ED immediately Please follow-up with PCP and GI outpatient closely Prescriptions: New amoxicillin-pot clavulanate 875-125 mg tablet 1 tab PO BID 7 Days Qty: 14 0RF No Action levothyroxine 50 mcg tablet 50 mcg PO DAILY Qty: 90 3RF Metamucil 3.4 gram/5.4 gram powder 1 tbsp PO DAILY Rx Instructions: mix into at least 8 oz of water or juice before administering Afluria Qd 2019-(3yr up)(PF) 60 mcg (15 mcg x 4)/0.5 mL syringe IM Adult 50 Plus Probiotic 4 billion cell capsule 4,000 mmu cells PO DAILY Rx Instructions: administer with a meal cholecalciferol (vitamin D3) 50 mcg (2,000 unit) capsule 50 mcg PO DAILY azithromycin 250 mg tablet See Rx Instructions PO .COMPLEX Qty: 6 0RF Rx Instructions: For 250 mg dose pack: take 500 mg today (day 1), then 250 mg for 4 days (days 2-5) PO levocetirizine 5 mg tablet 5 mg PO QPM PRN (Reason: allergy symptoms) Qty: 30 2RF valacyclovir 1 gram tablet 2,000 mg PO Q12H PRN (Reason: cold sore) Qty: 4 6RF Referrals: [facility] [Provider Group] Chari Rabago MD [Primary Care Provider] - 5 days Interventions: ED Discharge Assessment Last Done: 02/10/23 11:33 Discharge Date/Time: 02/10/23 11:34
--- NOTE | 2023-02-10 07:36 | PC.NURSE ---
pt a&ox3, vss, pt has hx of diverticulitis. t verbalizes that she is unsure on what caused the flare up but believes that it is the pizza that she ate on friday night. pt states that similar episode occurred the last time that she ate pizza as well. pt verbalizes nausea but denies v/d. pt also has had poor po intake recenly. pt also states that she has scants amount of tissue and/hematuria. denies frequency/urgency/dysuria. pt resting with the lights dimmed. call dixon placed within reach.
[2023-02-10] MEDS: 0.9 % Sodium Chloride 1,000 ML 999 ML IV (07:57)
[2023-02-10 07:59] LABS: MANUAL DIFF FLAG NO
[2023-02-10 08:00] LABS: Basophils Percent Auto 0.2 % (0-2); Eosinophils Percent Auto 0.1 % (0-4); Hematocrit 37.5 % (37.0-47.0); Hemoglobin 13.1 g/dl (12.0-16.0); Imm Gran Abs Auto 0.02 X10*3/uL (0.00-0.03); Imm Gran Pct Auto 0.2 % (0.0-0.4); Lymphocytes Absolute Auto 0.9 X10*3/uL (1.2-4.9); Lymphocytes Percent Auto 10.5 % (20-40); Mean Corpuscular HGB Conc 34.9 g/dl (31.0-35.0); Mean Corpuscular Hemoglobin 31.7 pg (27.0-33.0); Mean Corpuscular Volume 90.8 fL (80.0-98.0); Mean Platelet Volume 8.9 fL (9.4-12.3); Monocytes Absolute Auto 0.6 X10*3/uL (0.1-1.2); Monocytes Percent Auto 6.6 % (2-11); Neutrophils Absolute Auto 7.1 x10*3/uL (2.0-8.3); Neutrophils Percent Auto 82.4 % (45-73); Platelet Count 191 X10*3/uL (160-400); Red Blood Count 4.13 X10*6/uL (4.20-5.50); Red Cell Distribution Width 12.3 % (11.0-16.0); White Blood Count 8.7 X10*3/uL (4.8-10.8)
[2023-02-10] MEDS: ondansetron HCL 4 MG/2 ML VIAL IVPUSH (08:01)
[2023-02-10] MEDS: Ketorolac Tromethamine 15 MG/ML VIAL IVPUSH ×2 (08:01→11:27)
--- NOTE | 2023-02-10 08:13 | PC.NURSE ---
20gIV placed in the left AC - IVF and medications administered per provider order. pt's bedside for support. pt resting comfortably with the lights dimmed. call dixon placed within reach.
[2023-02-10 08:18] LABS: Alanine Aminotransferase 14 U/L (0-31); Albumin Level 4.4 g/dL (3.5-5.0); Alkaline Phosphatase 42 U/L (39-117); Anion Gap 14 (12-20); Aspartate Amino Transferase 18 U/L (5-31); Bilirubin Direct 0.5 mg/dL (0.0-0.5); Bilirubin Total 1.4 mg/dL (0.0-1.0); Blood Urea Nitrogen 8 mg/dL (9-16); Calcium 9.9 mg/dL (8.4-10.2); Carbon Dioxide 26 mmol/L (22-29); Chloride 106 mmol/L (96-108); Creatinine Clr Calc Pharmacy 85.9; Estimated Glomerular Filt Rate > 60; Glucose Random 105 mg/dL (60-115); Lipase 11 U/L (8-78); Magnesium 2.1 mg/dL (1.6-2.6); Potassium 4.8 mmol/L (3.3-5.1); Sodium 141 mmol/L (135-145); Total Protein 7.4 g/dL (6.5-8.0)
[2023-02-10] MEDS: iohexoL 350 MG/ML 100 ML INFUS..BTL IV (09:16)
[2023-02-10 09:31] VITALS: BP 133/62; PULSE 74; RESP 18; TEMP 37.2; O2SAT 96
--- NOTE | 2023-02-10 09:34 | PC.NURSE ---
pt back from CT. IVF completely infused and d/c'd. pain level reassessed. pt verbalizes pain level decreased post medication administration. tech obtained urine and sent to lab. pt resting comfortably with call dixon placed within reach.
[2023-02-10 09:53] LABS: Appearance Urine Clear; Color Urine Yellow; Glucose Urine UA Negative (Negative); Leukocyte Esterase Urine Trace (Negative); Nitrite Urine Negative (Negative); Specific Gravity - Urine >= 1.030 (1.005-1.025); UMIC TRIGGER UACC YES; Urine Blood Negative (Negative); Urine Ketones 15 mg/dL (Negative); Urine Protein Negative (Neg-Trace)
[2023-02-10 09:55] LABS: Bacteria Urine None Seen (None Seen); Hyaline Casts Urine 0-2 /LPF (0-2); RBC Urine 0-2 /HPF (0-2); WBC Urine 0-5 /HPF (0-5)
[2023-02-10 11:25] VITALS: BP 105/40; PULSE 70; RESP 17; TEMP 36.7; O2SAT 97
== END 2023-02-10 11:34 | disposition home or self-care (01) ==
PROVIDERS: Physician Assistant; Emergency Provider Student in an Organized Health Care Education/Training Program; PCP Internal Medicine
DX: K57.32 Diverticulitis of large intestine without perforation or abscess without bleeding (principal); R11.2 Nausea with vomiting, unspecified; Z79.899 Other long term (current) drug therapy
CPT/HCPCS: 36415; 74177; 80048; 80076; 81001; 83690; 83735; 85025; 96361; 96374; 96375; 96376; 99284; 99285; J1885; J2405; Q9967

== ENCOUNTER 2023-02-10 17:55 | Inpatient (IN) | payer BC, SELFPAY ==
[2023-02-10 18:56] VITALS: BP 131/45; PULSE 83; RESP 18; TEMP 36.7; O2SAT 99; BMI 21.8
--- NOTE | 2023-02-10 18:57 | ED_ITS ---
HPI - Nausea/Vomiting/Diarrhea General Chief complaint: Nausea/Vomiting/Diarrhea Stated complaint: vomiting,diarrhea Time Seen by Provider: 02/10/23 19:44 Source: patient Mode of arrival: ambulatory Limitations: no limitations History of Present Illness HPI Narrative: Patient comes to the emergency room complaining of worsening left lower quadrant pain, nausea vomiting and diarrhea. Patient was seen here earlier today, patient was diagnosed with diverticulitis, sent home with p.o. antibiotics. Patient states that she has been unable to tolerate p.o.. Patient tried taking her antibiotics p.o., vomited and developed diarrhea. Patient states the left lower quadrant pain worsened, now 8/10. Patient denies fever or chills, no dysuria or hematuria. No flank pain. Related Data Home Medications Medication Instructions Recorded Confirmed psyllium husk 3.4 gram/5.4 gram 1 tbsp PO DAILY 04/25/20 04/30/21 oral powder (Metamucil) cholecalciferol (vitamin D3) 50 50 mcg PO DAILY 05/03/22 mcg (2,000 unit) capsule lactobacillus combination no.9 4 4,000 mmu cells PO DAILY 05/03/22 billion cell capsule (Adult 50 Plus Probiotic) estradiol 0.01% (0.1 mg/gram) vaginal 02/10/23 vaginal cream levothyroxine 75 mcg tablet 75 mcg PO DAILY 02/10/23 02/10/23 Previous Rx's Medication Instructions Recorded levocetirizine 5 mg tablet 5 mg PO QPM PRN allergy symptoms 05/03/22 #30 tabs valacyclovir 1 gram tablet 2,000 mg (2 x 1 gram) PO Q12H PRN 05/03/22 cold sore #4 tabs amoxicillin 875 mg-potassium 1 tab PO BID 7 days #14 tabs 02/10/23 clavulanate 125 mg tablet Allergies Allergy/AdvReac Type Severity Reaction Status Date / Time Sulfa (Sulfonamide Allergy Intermediate Rash Verified 05/03/22 08:04 Antibiotics) cephalexin [From KEFLEX] Allergy Unknown HIVES Verified 05/03/22 08:04 methylprednisolone [Medrol] AdvReac Unknown grandiosity Verified 05/03/22 08:04 prednisone AdvReac Unknown grandiosity Verified 05/03/22 08:04 Review of Systems 2 Review of Systems: Constitutional : No Weight loss, No Fever, No Chills, No Night Sweats, No Fatigue, No Malaise ENT/Mouth : No Hearing loss, No Ear Pain, No Nasal Congestion, No Sinus Pain, No Hoarseness, No sore throat, No Rhinorrhea, No Swallowing Difficulty Eyes: No Eye Pain, No Swelling, No Redness, No Foreign Body, No Discharge, No Vision Changes Cardiovascular : No Chest Pain, No SOB, No Dyspnea on Exertion, No Orthopnea, No Edema, No Palpitations Respiratory : No Cough, No Sputum, No Wheezing, No Smoke Exposure, No Dyspnea Gastrointestinal : Complaining of nausea vomiting and diarrhea, complaining of worsening left lower quadrant pain, No Hematochezia, No Melena Genitourinary : no irregular bleeding, No Dysuria, No Urinary Frequency, No Hematuria, No Urinary Incontinence, No Urgency, No Flank Pain, No Urinary Flow Changes, No Hesitancy Musculoskeletal : No joint pain, No Myalgias, No Joint Swelling Skin : No Skin Lesions, No rash Neuro : No Weakness, No Numbness, No Paresthesias, No Loss of Consciousness, No Dizziness, No Headache Psych : No Anxiety/Panic, No Depression, No SI/HI/AH/VH, No Social Issues, Heme/Lymph: No Bruising, No Bleeding,No Lymphadenopathy Endocrine : No Polyuria, No Polydipsia, No Temperature Intolerance PMFSH Past Medical History Medical History Acute sinusitis Irritable bowel syndrome with constipation and diarrhea SALLY positive Menopause Vitamin D deficiency Anemia Annual visit for general adult medical examination with abnormal findings Chronic leukopenia SALLY positive Cyst of right breast Narrow angle glaucoma suspect Recurrent cold sores Acquired hypothyroidism Surgical History H/O colonoscopy Diverticulitis History of back surgery Family History Family History Father Smoker CVD (cardiovascular disease) HTN (hypertension) Mother HTN (hypertension) CVD (cardiovascular disease) Pancreatic cancer Mental health disorder Maternal Grandfather Depression Cervical cancer Maternal Grandmother Alcoholism Paternal Grandfather Alcoholism Paternal Grandmother No problems noted. 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 Oriented X3. Seems uncomfortable Eyes: Pupils equal, round and reactive to light. ENT: Pharynx normal. Neck: Normal inspection. Neck supple. No lymph nodes noted. No crepitus CVS: Normal heart rate and rhythm. Pulses normal. Normal S1 and S2 Respiratory: No respiratory distress. Breath sounds normal. No Wheezing. No rales Abdomen: Soft , tenderness to palpation in left lower quadrant, no rebound, no guarding, no rigidity Skin: Skin warm and dry. Normal skin color. Normal skin turgor. Extremities: No lower extremity edema. No Lacerations. No Rash Neuro: Oriented X 3. No motor deficit. No sensory deficit. Moving all extremities. No slurred speech. CN 2 through 12 grossly intact Psych: calm, cooperative, normal affect Course Course Course Narrative: RME - 57 yo female presenting back to the ER for evaluation of nausea, vomiting and 10/10 abdominal pain after starting augmentin for acute diverticulitis today. reports just being discharged earlier today from the ER. when she got home and the nausea meds wore off she started vomiting and severe pain started. she states she has required admission for her prior episodes of diverticulitis Plan: IVF, meds, repeat labs, may need admission Medications Administered Generic Name Dose Route Start Last Admin Trade Name Freq PRN Reason Stop Dose Admin Sodium Chloride 1,000 mls @ 999 mls/hr 02/10/23 19:00 02/10/23 19:48 Ns IV 02/10/23 20:00 999 mls/hr .Q1H1M KRISTINA Administration Discontinued Medications Generic Name Dose Route Start Last Admin Trade Name Geronimo PRN Reason Stop Dose Admin Morphine Sulfate 4 mg 02/10/23 18:58 02/10/23 19:49 Morphine Sulfate 4 Mg/Ml Cartridge IVPUSH 02/10/23 18:59 4 mg ONCE ONE Administration Protocol Ondansetron HCl 4 mg 02/10/23 18:58 02/10/23 19:49 Ondansetron Hcl 4 Mg/2 Ml Vial IVPUSH 02/10/23 18:59 4 mg ONCE ONE Administration Ondansetron HCl 4 mg 02/10/23 18:59 02/10/23 19:03 Ondansetron Odt 4 Mg Tab.Rapdis TRANSLINGU 02/10/23 19:00 4 mg ONCE ONE Administration Medical Decision Making Medical Decision Making [facility] Narrative: -initially when patient left home, she was feeling better. After taking p.o. antibiotics at home she started feeling worse, started having increased vomiting and diarrhea. Patient unable to tolerate p.o.. -patient receiving IV fluids, morphine IV, levofloxacin and metronidazole -interpretation of patient's CT scan from earlier today, consistent with diverticulitis. -I discussed the patient with Dr. Hernandez, patient being admitted Differential Diagnosis Differential Diagnoses: The differential diagnosis associated with the presentation includes (Diverticulitis, abscess, ovarian cyst) Admission/Observation Consideration of admission/observation: Escalation of care including admission/observation considered Consult Healthcare Provider Management of the patient was discussed with: Hospitalist Lab Data [facility] Lab Attestation statement: I reviewed the patient's lab results. 02/10/23 19:25 02/10/23 19:25 Labs: Lab Results 02/10/23 Range/Units 19:25 WBC 10.8 (4.8-10.8) X10*3/uL RBC 4.19 L (4.20-5.50) X10*6/uL Hgb 13.4 (12.0-16.0) g/dl Hct 38.3 (37.0-47.0) % MCV 91.4 (80.0-98.0) fL MCH 32.0 (27.0-33.0) pg MCHC 35.0 (31.0-35.0) g/dl RDW 12.4 (11.0-16.0) % Plt Count 200 (160-400) X10*3/uL MPV 8.8 L (9.4-12.3) fL Immature Gran % (Auto) 0.3 (0.0-0.4) % Neut % (Auto) 80.9 H (45-73) % Lymph % (Auto) 9.7 L (20-40) % [place] % (Auto) 8.9 (2-11) % Eos % (Auto) 0.1 (0-4) % Baso % (Auto) 0.1 (0-2) % Lymph # (Auto) 1.1 L (1.2-4.9) X10*3/uL [place] # (Auto) 1.0 (0.1-1.2) X10*3/uL Eos # (Auto) 0.0 (0.0-0.4) X10*3/uL Baso # (Auto) 0.0 (0.0-0.2) X10*3/uL Abs Immat Gran (auto) 0.03 (0.00-0.03) X10*3/uL Absolute Neuts (auto) 8.8 H (2.0-8.3) x10*3/uL Absolute Nucleated RBC 0.000 (0.0-0.012) X10*3/uL Nucleated RBC % (auto) 0.0 (0.0-0.2) /100WBC Sodium 143 (135-145) mmol/L Potassium 3.9 (3.3-5.1) mmol/L Chloride 109 H (96-108) mmol/L Carbon Dioxide 24 (22-29) mmol/L Anion Gap 14 (12-20) BUN 12 (9-16) mg/dL Creatinine 0.68 (0.5-1.4) mg/dL Estim Creat Clear Calc 83.4 Estimated GFR > 60 Random Glucose 129 H (60-115) mg/dL Calcium 9.5 (8.4-10.2) mg/dL Magnesium 2.0 (1.6-2.6) mg/dL Total Bilirubin 1.6 H (0.0-1.0) mg/dL Direct Bilirubin 0.6 H (0.0-0.5) mg/dL AST 19 (5-31) U/L ALT 13 (0-31) U/L Alkaline Phosphatase 51 (39-117) U/L Total Protein 7.7 (6.5-8.0) g/dL Albumin 4.5 (3.5-5.0) g/dL Urine Color [place] Urine Appearance Hazy Urine pH 6.0 (5.0-9.0) Ur Specific [place] 1.010 (1.005-1.025) Urine Protein Trace (Neg-Trace) mg/dL Urine Glucose (UA) Negative (Negative) mg/dL Urine Ketones 40 (Negative) mg/dL Urine Blood Trace (Negative) Urine Nitrite Negative (Negative) Ur Leukocyte Esterase Trace H (Negative) Radiology Impression Discussion of test interpretation with radiology: I have reviewed the radiologist's reading. Radiologist Impression: FINDINGS: LUNG BASES: The visualized lung bases are unremarkable. LIVER, GALLBLADDER, AND BILIARY TREE: The liver is normal in size and contour. No significant biliary ductal dilatation is present. The gallbladder is unremarkable with no evidence of radiopaque gallstones, gallbladder wall thickening, or obvious pericholecystic inflammatory changes. PANCREAS: Unremarkable. SPLEEN: Unremarkable. ADRENAL GLANDS: Unremarkable. KIDNEYS AND URETERS: The kidneys are symmetric in size and enhancement. 1.6 cm indeterminate hypodensity interpolar region of the right kidney. Punctate nonobstructing right renal calculus. BLADDER: Unremarkable. GASTROINTESTINAL TRACT: There is wall thickening and submucosal enhancement of the sigmoid colon in the left lower quadrant. There is surrounding pericolonic inflammatory change. There is evidence of underlying diverticular disease. No small bowel obstruction. ABDOMINAL WALL: No significant hernia is appreciated. LYMPH NODES: No bulky abdominal or pelvic lymphadenopathy. VASCULAR: Normal caliber abdominal aorta. PELVIC VISCERA: Prominence of the left parametrial veins. Small free fluid in pelvis. OSSEOUS STRUCTURES: No destructive bone lesions. CT/CT abdomen pelvis w IV con IMPRESSION: Wall thickening of the sigmoid colon with submucosal enhancement and surrounding pericolonic inflammatory change. Given the presence of underlying diverticular, this most likely represents acute diverticulitis. Follow-up imaging after treatment is advised. Indeterminate 1.6 cm hypodensity interpolar region of the right kidney. Advise correlation with dedicated renal ultrasound. Critical Care Time Critical Care Time Critical Care Time: Yes Total Critical Care Time: 60 Attestation: I have personally provided critical care time. Time includes review of lab data, radiology results, discussion with consultants, and monitoring for potential decompensation. Intervention performed as documented. Discharge Plan Discharge Clinical Impression: Diverticulitis Patient Disposition: Admitted As Inpatient Prescriptions: No Action levothyroxine 50 mcg tablet 50 mcg PO DAILY Qty: 90 3RF amoxicillin-pot clavulanate 875-125 mg tablet 1 tab PO BID 7 Days Qty: 14 0RF Metamucil 3.4 gram/5.4 gram powder 1 tbsp PO DAILY Rx Instructions: mix into at least 8 oz of water or juice before administering Afluria Qd (3yr up)(PF) 60 mcg (15 mcg x 4)/0.5 mL syringe IM Adult 50 Plus Probiotic 4 billion cell capsule 4,000 mmu cells PO DAILY Rx Instructions: administer with a meal cholecalciferol (vitamin D3) 50 mcg (2,000 unit) capsule 50 mcg PO DAILY azithromycin 250 mg tablet See Rx Instructions PO .COMPLEX Qty: 6 0RF Rx Instructions: For 250 mg dose pack: take 500 mg today (day 1), then 250 mg for 4 days (days 2-5) PO levocetirizine 5 mg tablet 5 mg PO QPM PRN (Reason: allergy symptoms) Qty: 30 2RF valacyclovir 1 gram tablet 2,000 mg PO Q12H PRN (Reason: cold sore) Qty: 4 6RF
[2023-02-10] MEDS: Ondansetron ODT 4 MG TAB.RAPDIS TRANSLINGU (19:03)
[2023-02-10 19:31] LABS: MANUAL DIFF FLAG NO
[2023-02-10 19:34] LABS: Basophils Percent Auto 0.1 % (0-2); Eosinophils Percent Auto 0.1 % (0-4); Hematocrit 38.3 % (37.0-47.0); Hemoglobin 13.4 g/dl (12.0-16.0); Imm Gran Abs Auto 0.03 X10*3/uL (0.00-0.03); Imm Gran Pct Auto 0.3 % (0.0-0.4); Lymphocytes Absolute Auto 1.1 X10*3/uL (1.2-4.9); Lymphocytes Percent Auto 9.7 % (20-40); Mean Corpuscular Volume 91.4 fL (80.0-98.0); Mean Platelet Volume 8.8 fL (9.4-12.3); Monocytes Percent Auto 8.9 % (2-11); Neutrophils Absolute Auto 8.8 x10*3/uL (2.0-8.3); Neutrophils Percent Auto 80.9 % (45-73); Platelet Count 200 X10*3/uL (160-400); Red Blood Count 4.19 X10*6/uL (4.20-5.50); Red Cell Distribution Width 12.4 % (11.0-16.0); White Blood Count 10.8 X10*3/uL (4.8-10.8)
[2023-02-10] MEDS: 0.9 % Sodium Chloride 1,000 ML 999 ML IV (19:48)
[2023-02-10 19:49] LABS: Appearance Urine Hazy; Color Urine Orange; Glucose Urine UA Negative (Negative); Leukocyte Esterase Urine Trace (Negative); Nitrite Urine Negative (Negative); UMIC TRIGGER UACC YES; Urine Blood Trace (Negative); Urine Ketones 40 mg/dL (Negative); Urine Protein Trace mg/dL (Neg-Trace)
[2023-02-10] MEDS: Morphine Sulfate 4 MG/ML CARTRIDGE IVPUSH (19:49)
[2023-02-10] MEDS: ondansetron HCL 4 MG/2 ML VIAL IVPUSH (19:49)
[2023-02-10 19:50] LABS: Alanine Aminotransferase 13 U/L (0-31); Albumin Level 4.5 g/dL (3.5-5.0); Alkaline Phosphatase 51 U/L (39-117); Anion Gap 14 (12-20); Aspartate Amino Transferase 19 U/L (5-31); Bilirubin Direct 0.6 mg/dL (0.0-0.5); Bilirubin Total 1.6 mg/dL (0.0-1.0); Blood Urea Nitrogen 12 mg/dL (9-16); Calcium 9.5 mg/dL (8.4-10.2); Carbon Dioxide 24 mmol/L (22-29); Chloride 109 mmol/L (96-108); Creatinine Clr Calc Pharmacy 83.4; Estimated Glomerular Filt Rate > 60; Glucose Random 129 mg/dL (60-115); Potassium 3.9 mmol/L (3.3-5.1); Sodium 143 mmol/L (135-145); Total Protein 7.7 g/dL (6.5-8.0)
[2023-02-10 19:58] LABS: Bacteria Urine Trace (None Seen); Hyaline Casts Urine 0-2 /LPF (0-2); RBC Urine 0-2 /HPF (0-2); WBC Urine 0-5 /HPF (0-5)
--- NOTE | 2023-02-10 20:11 | PC.NURSE ---
this rn assumed care of pt @ 1940. from waiting room. pt at bedside. this rn placed IV in L AC pt tolerated well. pt medicated according to ale
--- NOTE | 2023-02-10 20:23 | PM.IMHP ---
History of Present Illness Date of Service: 02/10/23 Chief Complaint: Abdominal Pain This is a 57-year-old female with pertinent history of hypothyroidism, constipation and history of diverticulitis who presents to the emergency department for evaluation of abdominal pain. Patient states it started 1 day prior to presentation, in the left lower quadrant region, nonradiating, initially intermittent and now progressed to being constant and without any relieving factors. Patient presented to the ER on the day of presentation and was discharged home with p.o. antibiotics. CT abdomen revealed diverticulitis. Patient presents again after being discharged as she was unable to tolerate p.o. intake. She has had persistent nausea and nonbloody emesis and was unable to take p.o. antibiotics or tolerate any p.o. liquids. She states she is compliant with MiraLax which she was given for history of constipation and diverticulitis. Also states she has been having episodes of nonbloody diarrhea and has a history of C diff. does have associated chills but no documented fever. No chest discomfort, palpitations, shortness of breath, changes in urinary habits. In the emergency department, patient was initiated on IV antibiotics and hospital medicine team consulted for admission. Reviewed CT with acute diverticulitis Review of Systems Constitutional: Constitutional: Reports chills, Reports fatigue, Reports lethargy, Reports malaise and Reports poor appetite Cardiovascular: Cardiovascular: Reports no additional cardiovascular complaints Respiratory: Respiratory: Reports no additional respiratory complaints Gastrointestinal: Gastrointestinal: Reports abdominal pain, Reports nausea and Reports vomiting Genitourinary: Genitourinary: Reports no additional female genitourinary complaints Endocrine: Endocrine: Reports fatigue [facility] Medical History Acute sinusitis Irritable bowel syndrome with constipation and diarrhea SALLY positive Menopause Vitamin D deficiency Anemia Annual visit for general adult medical examination with abnormal findings Chronic leukopenia SALLY positive Cyst of right breast Narrow angle glaucoma suspect Recurrent cold sores Acquired hypothyroidism Family History Father Smoker CVD (cardiovascular disease) HTN (hypertension) Mother HTN (hypertension) CVD (cardiovascular disease) Pancreatic cancer Mental health disorder Maternal Grandfather Depression Cervical cancer Maternal Grandmother Alcoholism Paternal Grandfather Alcoholism Paternal Grandmother No problems noted. 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[employer] Cognitive needs: No Hearing needs: No Vision needs: Yes Meds Allergies Allergy/AdvReac Type Severity Reaction Status Date / Time Sulfa (Sulfonamide Allergy Intermediate Rash Verified 05/03/22 08:04 Antibiotics) cephalexin [From KEFLEX] Allergy Unknown HIVES Verified 05/03/22 08:04 methylprednisolone [Medrol] AdvReac Unknown grandiosity Verified 05/03/22 08:04 prednisone AdvReac Unknown grandiosity Verified 05/03/22 08:04 Active Medications: Current Medications Levofloxacin (Levaquin) 500 mg in 100 mls @ 100 mls/hr IV ONCE ONE Stop: 02/10/23 20:54 Metronidazole (Flagyl) 500 mg in 100 mls @ 100 mls/hr IV ONCE ONE Stop: 02/10/23 20:54 Home Medications Medication Instructions Recorded Confirmed Last Taken Type lactobacillus combination no.9 4 4,000 mmu cells PO DAILY 05/03/22 02/10/23 Unknown History billion cell capsule (Adult 50 Plus Probiotic) estradiol 0.01% (0.1 mg/gram) 1 appful vaginal 2XW 02/10/23 02/10/23 Unknown History vaginal cream levothyroxine 75 mcg tablet 75 mcg PO DAILY 02/10/23 02/10/23 02/10/23 History polyethylene glycol 3350 17 gram 17 g PO DAILY 02/10/23 02/10/23 Unknown History oral powder packet (Miralax) Physical Exam Vital Signs and Narrative: Vital Signs: Last Vital Signs Temp 98.1 F 02/10/23 18:56 Pulse 83 02/10/23 18:56 Resp 18 02/10/23 18:56 BP 131/45 L 02/10/23 18:56 Pulse Ox 99 02/10/23 18:56 O2 Del Method Room Air 02/10/23 18:56 BMI result Body Mass Index 21.8 Middle-aged female lying in bed in no distress Neck supple, no JVD Regular rate and rhythm, S1-S2 heard Regular breath sounds bilaterally, no wheezing or crackles appreciated Abdomen with left lower quadrant tenderness and mild guarding, no rigidity, no rebound tenderness Patient is awake, alert and oriented to self, place, time and person ; no focal motor deficit Psych: Normal mood No pedal edema Results Labs 02/10/23 19:25 02/10/23 19:25 Labs: Laboratory Results - last 24 hr 02/10/23 19:25 MCV 91.4 MCH 32.0 MCHC 35.0 RDW 12.4 Plt Count 200 MPV 8.8 L Immature Gran % (Auto) 0.3 Neut % (Auto) 80.9 H Lymph % (Auto) 9.7 L [place] % (Auto) 8.9 Eos % (Auto) 0.1 Baso % (Auto) 0.1 Lymph # (Auto) 1.1 L [place] # (Auto) 1.0 Eos # (Auto) 0.0 Baso # (Auto) 0.0 Abs Immat Gran (auto) 0.03 Absolute Neuts (auto) 8.8 H Absolute Nucleated RBC 0.000 Nucleated RBC % (auto) 0.0 Anion Gap 14 Estim Creat Clear Calc 83.4 Estimated GFR > 60 Random Glucose 129 H Calcium 9.5 Magnesium 2.0 Total Bilirubin 1.6 H Direct Bilirubin 0.6 H AST 19 ALT 13 Alkaline Phosphatase 51 Total Protein 7.7 Albumin 4.5 Urine Color [place] Urine Appearance Hazy Urine pH 6.0 Ur Specific [place] 1.010 Urine Protein Trace Urine Glucose (UA) Negative Urine Ketones 40 Urine Blood Trace Urine Nitrite Negative Ur Leukocyte Esterase Trace H Urine RBC 0-2 Urine WBC 0-5 Ur Squamous Epith Cells 3-5 Urine Bacteria Trace Hyaline Casts 0-2 Assessment and Plan (1) Diverticulitis: Status: Acute Plan This is a 57-year-old female with pertinent history of hypothyroidism, constipation and history of diverticulitis who presents to the emergency department for evaluation of abdominal pain. #. Acute uncomplicated diverticulitis. Will admit patient with IV fluids and IV antibiotics as she is unable to tolerate p.o. intake. NPO for bowel rest. IV opioids p.r.n. for symptomatic relief. Monitor symptoms and advanced diet as tolerated #. Diarrhea, likely in the setting of above. C diff pending #. Hypothyroidism. On Synthroid DVT prophylaxis: Lovenox Full code Admit as inpatient and will require two night minimum hospital stay for IV antibiotics, close monitoring of symptoms and tolerance of p.o. intake Time Spent With Patient Time: Total time managing care of this patient today ____ minutes. Quality Stroke Does the patient have a stroke diagnosis?: No VTE Prior VTE?: No VTE Risk Level:: Medical - moderate - high VTE Device Contraindication: Treatment Not Indicated VTE Drug Contraindication: N/A - Med Ordered
[2023-02-10] MEDS: levoFLOXacin/D5W 500 MG/100 ML PIGGYBACK 100 MG IV (21:28)
[2023-02-10 21:30] VITALS: BP 135/53; PULSE 76; RESP 11; TEMP 38.1; O2SAT 96
[2023-02-10] MEDS: Acetaminophen Supp 650 MG SUPP.RECT PR (21:36)
[2023-02-10] MEDS: Enoxaparin Sodium 40 MG/0.4 ML SYRINGE SUBCUT (21:36)
[2023-02-10 21:40] LABS: Lactic Acid 0.8 mmol/L (0.5-2.0)
--- NOTE | 2023-02-10 22:02 | PC.NURSE ---
delay in obtaining blood cultures and lactic acid. once obtained pt medicated according to jul. temp 100.5 orally pt medicated with rectal tylenol dr valentin made aware
[2023-02-10] MEDS: cefTRIAXone sodium 2 GM in 0.9 % Sodium Chloride 50 ML IV (22:38)
[2023-02-10 22:41] VITALS: TEMP 37
[2023-02-10 23:20] VITALS: BP 128/61; PULSE 79; RESP 16; TEMP 37.2; O2SAT 98
[2023-02-10] MEDS: 0.9 % Sodium Chloride Flush 3 ML SYRINGE IVFLUSH (23:29)
[2023-02-10] MEDS: metroNIDAZOLE/NS 500 MG/100 ML PIGGYBACK 100 MG IV (23:29)
[2023-02-11] MEDS: ondansetron HCL 4 MG/2 ML VIAL IVPUSH ×3 (00:35→15:29)
[2023-02-11 03:59] VITALS: BP 133/61; PULSE 79; RESP 16; TEMP 36.8; O2SAT 100
[2023-02-11 06:34] LABS: Alanine Aminotransferase 9 U/L (0-31); Albumin Level 3.7 g/dL (3.5-5.0); Alkaline Phosphatase 40 U/L (39-117); Anion Gap 15 (12-20); Aspartate Amino Transferase 18 U/L (5-31); Blood Urea Nitrogen 11 mg/dL (9-16); Calcium 8.3 mg/dL (8.4-10.2); Carbon Dioxide 20 mmol/L (22-29); Chloride 113 mmol/L (96-108); Creatinine Clr Calc Pharmacy 99.5; Estimated Glomerular Filt Rate > 60; Glucose Random 96 mg/dL (60-115); Potassium 3.8 mmol/L (3.3-5.1); Sodium 144 mmol/L (135-145); Total Protein 6.3 g/dL (6.5-8.0)
[2023-02-11 07:16] LABS: Bilirubin Total 0.9 mg/dL (0.0-1.0)
--- NOTE | 2023-02-11 07:17 | PHA.MEDREC ---
Pharmacy Consult ? Medication Reconciliation Pharmacy has completed the medication reconciliation.
[2023-02-11] MEDS: metroNIDAZOLE/NS 500 MG/100 ML PIGGYBACK 100 MG IV ×3 (07:31→23:09)
[2023-02-11] MEDS: 0.9 % Sodium Chloride Flush 3 ML SYRINGE IVFLUSH ×2 (07:34→15:30)
[2023-02-11 08:00] VITALS: BP 127/58; PULSE 68; RESP 16; TEMP 36.3; O2SAT 100
--- NOTE | 2023-02-11 09:01 | P.PNIM_ITS ---
Subjective Subjective Date of Service: 02/11/23 Interval History: has persistent abdominal pain, nausea, diarrhea Physical Exam 2 Vital Signs: Vital Signs: Last Vital Signs Temp 97.4 F 02/11/23 08:00 Pulse 68 02/11/23 08:00 Resp 16 02/11/23 08:00 BP 127/58 L 02/11/23 08:00 Pulse Ox 100 02/11/23 08:00 O2 Del Method Room Air 02/11/23 08:00 BMI result Body Mass Index 21.8 Appearance: Alert. Oriented X3. CVS: Normal heart rate and rhythm. Pulses normal. Normal S1 and S2 Respiratory: No respiratory distress. Breath sounds normal. No Wheezing. No rales Abdomen: Soft , tenderness to palpation in left lower quadrant, no rebound, no guarding, no rigidity Skin: Skin warm and dry. Normal skin color. Normal skin turgor. Extremities: No lower extremity edema. No Lacerations. No Rash Neuro: Oriented X 3. No motor deficit. No sensory deficit. Moving all extremities. No slurred speech. CN 2 through 12 grossly intact Psych: calm, cooperative, normal affect Objective Data Active Medications Acetaminophen (Acetaminophen Supp 650 Mg Supp.Rect) 650 mg [place] Q6H PRN PRN Reason: Pain, Mild (Pain Scale 1-3) Last Admin: 02/10/23 21:36 Dose: 650 mg Documented By: GEETA Enoxaparin Sodium (Enoxaparin Sodium 40 Mg/0.4 Ml Syringe) 40 mg SUBCUT Q24H REPLACED BY [facility] Last Admin: 02/10/23 21:36 Dose: 40 mg Documented By: GEETA Metronidazole (Flagyl) 500 mg in 100 mls @ 100 mls/hr IV Q8H REPLACED BY [facility] Last Admin: 02/11/23 07:31 Dose: 100 mls/hr Documented By: CINDY Ceftriaxone Sodium 2 gm/ (Sodium Chloride) 50 mls @ 100 mls/hr IV Q24H REPLACED BY [facility] Last Infusion: 02/10/23 23:35 Dose: Infused Documented By: WILLI Levothyroxine Sodium (Levothyroxine Sodium 75 Mcg Tablet) 75 mcg PO DAILY REPLACED BY [facility] Last Admin: 02/11/23 07:35 Dose: Not Given Documented By: CINDY Non-Admin Reason: NPO Melatonin (Melatonin 3 Mg Tablet) 6 mg PO BEDTIME PRN PRN Reason: Insomnia Morphine Sulfate (Morphine Sulfate 4 Mg/Ml Cartridge) 2 mg IVPUSH Q4H PRN; Protocol PRN Reason: Pain, Severe (Pain Scale 7-10) Ondansetron HCl (Ondansetron Hcl 4 Mg/2 Ml Vial) 4 mg IVPUSH Q8H PRN PRN Reason: Nausea and Vomiting Last Admin: 02/11/23 07:29 Dose: 4 mg Documented By: CINDY Polyethylene Glycol (Polyethylene Glycol 3350 17 Gm Powd.Pack) 17 gm PO DAILY KRISTINA Sodium Chloride (0.9 % Sodium Chloride Flush 3 Ml Syringe) 3 ml IVFLUSH QSHIFT KRISTINA Last Admin: 02/11/23 07:34 Dose: 3 ml Documented By: CINDY Labs 02/10/23 19:25 02/11/23 05:35 Labs: Laboratory Results - last 24 hr 02/10/23 02/10/23 02/11/23 19:25 21:22 05:35 MCV 91.4 MCH 32.0 MCHC 35.0 RDW 12.4 Plt Count 200 MPV 8.8 L Immature Gran % (Auto) 0.3 Neut % (Auto) 80.9 H Lymph % (Auto) 9.7 L Richardson % (Auto) 8.9 Eos % (Auto) 0.1 Baso % (Auto) 0.1 Lymph # (Auto) 1.1 L Richardson # (Auto) 1.0 Eos # (Auto) 0.0 Baso # (Auto) 0.0 Abs Immat Gran (auto) 0.03 Absolute Neuts (auto) 8.8 H Absolute Nucleated RBC 0.000 Nucleated RBC % (auto) 0.0 Anion Gap 14 15 Estim Creat Clear Calc 83.4 99.5 Estimated GFR > 60 > 60 Random Glucose 129 H 96 Lactic Acid 0.8 Calcium 9.5 8.3 L D Magnesium 2.0 Total Bilirubin 1.6 H 0.9 Direct Bilirubin 0.6 H AST 19 18 ALT 13 9 Alkaline Phosphatase 51 40 Total Protein 7.7 6.3 L Albumin 4.5 3.7 Urine Color [place] Urine Appearance Hazy Urine pH 6.0 Ur Specific [place] 1.010 Urine Protein Trace Urine Glucose (UA) Negative Urine Ketones 40 Urine Blood Trace Urine Nitrite Negative Ur Leukocyte Esterase Trace H Urine RBC 0-2 Urine WBC 0-5 Ur Squamous Epith Cells 3-5 Urine Bacteria Trace Hyaline Casts 0-2 Assessment and Plan (1) Diverticulitis: Status: Acute Plan This is a 57-year-old female with pertinent history of hypothyroidism, constipation and history of diverticulitis who presents to the emergency department for evaluation of abdominal pain. #. Acute uncomplicated diverticulitis, unable to tolerate PO. -continue IV Abx, IV fluid, pain med. Surgery consult on outpatient basis, start clears #. Diarrhea, likely in the setting of above. C diff pending #. Hypothyroidism. On Synthroid DVT prophylaxis: Lovenox Full code Need for inpt: need for IV Abx, IVF as not able to tolerate oral Time Spent With Patient Time: Total time managing care of this patient today ____ minutes. Quality Stroke Does the patient have a stroke diagnosis?: No VTE Prior VTE?: No VTE Risk Level:: Medical - moderate - high VTE Device Contraindication: Treatment Not Indicated VTE Drug Contraindication: N/A - Med Ordered
--- NOTE | 2023-02-11 10:22 | MHC.CM.PN ---
CM MET WITH PT AND SPOUSE AT BEDSIDE. PT IS INDEPENDENT/EMPLOYED F/T. + COVID VAX HAS COPY OF HCP AT HOME. PCP DR. POTTS AT [facility]. DP: HOME, NO SERVICES ANTICIPATED. SPOUSE WILL TRANSPORT. CM WILL CONTINUE TO FOLLOW FOR ANY CHANGE IN DC NEEDS/PLAN
[2023-02-11 13:18] LABS: CDiff Gene PCR NEGATIVE (Negative)
[2023-02-11 15:23] VITALS: BP 127/60; PULSE 65; RESP 16; TEMP 36.1; O2SAT 98
[2023-02-11] MEDS: Lactated Ringers 1,000 ML 100 ML IVCONT (16:37)
[2023-02-11 19:12] VITALS: BP 135/63; PULSE 58; RESP 18; TEMP 36.3; O2SAT 99
[2023-02-11] MEDS: Enoxaparin Sodium 40 MG/0.4 ML SYRINGE SUBCUT (20:21)
[2023-02-11] MEDS: Acetaminophen Supp 650 MG SUPP.RECT PR (20:24)
[2023-02-11] MEDS: cefTRIAXone sodium 2 GM in 0.9 % Sodium Chloride 50 ML IV (22:24)
[2023-02-12] MEDS: Lactated Ringers 1,000 ML 100 ML IVCONT ×2 (02:45→12:55)
[2023-02-12] MEDS: Acetaminophen Supp 650 MG SUPP.RECT PR ×2 (02:48→13:00)
[2023-02-12 03:40] VITALS: BP 113/58; PULSE 62; RESP 16; TEMP 36.3; O2SAT 97
[2023-02-12 08:00] VITALS: BP 132/61; PULSE 59; RESP 16; TEMP 36; O2SAT 98; BMI 21.8
[2023-02-12] MEDS: metroNIDAZOLE/NS 500 MG/100 ML PIGGYBACK 100 MG IV ×2 (08:33→16:45)
[2023-02-12] MEDS: ondansetron HCL 4 MG/2 ML VIAL IVPUSH ×3 (08:33→21:21)
[2023-02-12] MEDS: Morphine Sulfate 4 MG/ML CARTRIDGE 2 MG IVPUSH (08:33)
[2023-02-12] MEDS: Levothyroxine Sodium 75 MCG TABLET PO (08:34)
--- NOTE | 2023-02-12 09:19 | HO.PM.IMPN ---
Subjective Subjective Date of Service: 02/12/23 Interval History: Persistent pain, diarrhea Physical Exam Vital Signs: Vital Signs: Last Vital Signs Temp 96.8 F 02/12/23 08:00 Pulse 59 02/12/23 08:00 Resp 16 02/12/23 08:00 BP 132/61 02/12/23 08:00 Pulse Ox 98 02/12/23 08:00 O2 Del Method Room Air 02/12/23 08:00 BMI result Body Mass Index 21.8 Objective Data Active Medications Acetaminophen (Acetaminophen Supp 650 Mg Supp.Rect) 650 mg [place] Q6H PRN PRN Reason: Pain, Mild (Pain Scale 1-3) Last Admin: 02/12/23 02:48 Dose: 650 mg Documented By: PAOLO Enoxaparin Sodium (Enoxaparin Sodium 40 Mg/0.4 Ml Syringe) 40 mg SUBCUT Q24H [facility] Last Admin: 02/11/23 20:21 Dose: 40 mg Documented By: PAOLO Metronidazole (Flagyl) 500 mg in 100 mls @ 100 mls/hr IV Q8H [facility] Last Admin: 02/12/23 08:33 Dose: 100 mls/hr Documented By: CARMEN Ceftriaxone Sodium 2 gm/ (Sodium Chloride) 50 mls @ 100 mls/hr IV Q24H [facility] Last Infusion: 02/11/23 23:05 Dose: Infused Documented By: PAOLO Lactated Ringer's (Lr) 1,000 mls @ 100 mls/hr IVCONT .Q10H [facility] Last Admin: 02/12/23 02:45 Dose: 100 mls/hr Documented By: PAOLO Levothyroxine Sodium (Levothyroxine Sodium 75 Mcg Tablet) 75 mcg PO DAILY [facility] Last Admin: 02/12/23 08:34 Dose: 75 mcg Documented By: CARMEN Melatonin (Melatonin 3 Mg Tablet) 6 mg PO BEDTIME PRN PRN Reason: Insomnia Morphine Sulfate (Morphine Sulfate 4 Mg/Ml Cartridge) 2 mg IVPUSH Q4H PRN; Protocol PRN Reason: Pain, Severe (Pain Scale 7-10) Last Admin: 02/12/23 08:33 Dose: 2 mg Documented By: CARMEN Ondansetron HCl (Ondansetron Hcl 4 Mg/2 Ml Vial) 4 mg IVPUSH Q8H PRN PRN Reason: Nausea and Vomiting Last Admin: 02/12/23 08:33 Dose: 4 mg Documented By: CARMEN Polyethylene Glycol (Polyethylene Glycol 3350 17 Gm Powd.Pack) 17 gm PO DAILY [facility] Last Admin: 02/12/23 08:41 Dose: Not Given Documented By: CARMEN Non-Admin Reason: Patient Refused Sodium Chloride (0.9 % Sodium Chloride Flush 3 Ml Syringe) 3 ml IVFLUSH QSHIFT [facility] Last Admin: 02/12/23 08:24 Dose: Not Given Documented By: CARMEN Non-Admin Reason: IV Running Labs 02/10/23 19:25 02/11/23 05:35 Labs: Laboratory Results - last 24 hr 02/11/23 Unknown C. difficile Tox B Gene NEGATIVE Microbiology Microbiology Results: Microbiology 02/10/23 21:22 Blood Culture - Preliminary Blood - Venous No growth after 24 hours. 02/10/23 21:20 Blood Culture - Preliminary Blood - Venous No growth after 24 hours. Assessment and Plan (1) Diverticulitis: Status: Acute Plan This is a 57-year-old female with pertinent history of hypothyroidism, constipation and history of diverticulitis who presents to the emergency department for evaluation of abdominal pain. #. Acute uncomplicated diverticulitis, unable to tolerate PO. -continue IV Abx, IV fluid, pain med. Surgery consult on outpatient basis, advance diet as tolerated #. Diarrhea, likely in the setting of above. C diff pending #. Hypothyroidism. On Synthroid DVT prophylaxis: Lovenox Full code Need for inpt: need for IV Abx, IVF as not able to tolerate oral Time Spent With Patient Time: Total time managing care of this patient today ____ minutes. Quality Stroke Does the patient have a stroke diagnosis?: No VTE Prior VTE?: No VTE Risk Level:: Medical - moderate - high VTE Device Contraindication: Treatment Not Indicated VTE Drug Contraindication: N/A - Med Ordered
--- NOTE | 2023-02-12 13:49 | MHC.CM.PN ---
Per MD rounds discharge anticipated if pt tolerates diet. Per RN, clears were tolerated. DP home self care Spouse will provide transport home.
[2023-02-12 16:00] VITALS: BP 147/65; PULSE 60; RESP 14; TEMP 36.3; O2SAT 98
[2023-02-12 19:39] VITALS: BP 120/59; PULSE 59; RESP 16; TEMP 36.6; O2SAT 99
[2023-02-12] MEDS: Enoxaparin Sodium 40 MG/0.4 ML SYRINGE SUBCUT (21:26)
[2023-02-12] MEDS: cefTRIAXone sodium 2 GM in 0.9 % Sodium Chloride 50 ML IV (21:26)
[2023-02-13] MEDS: 0.9 % Sodium Chloride Flush 3 ML SYRINGE IVFLUSH ×3 (00:05→20:31)
[2023-02-13] MEDS: Acetaminophen Supp 650 MG SUPP.RECT PR ×2 (00:05→09:56)
[2023-02-13 03:16] VITALS: BP 113/56; PULSE 58; RESP 16; TEMP 36.4; O2SAT 98
[2023-02-13] MEDS: ondansetron HCL 4 MG/2 ML VIAL IVPUSH (05:59)
[2023-02-13] MEDS: metroNIDAZOLE/NS 500 MG/100 ML PIGGYBACK 100 MG IV ×4 (05:59→22:44)
[2023-02-13] MEDS: Lactated Ringers 1,000 ML 100 ML IVCONT ×2 (06:05→10:34)
[2023-02-13 08:00] VITALS: BP 136/63; PULSE 66; RESP 17; TEMP 36.2; O2SAT 99
--- NOTE | 2023-02-13 09:10 | P.PNIM_ITS ---
Subjective Subjective Date of Service: 02/13/23 Physical Exam 2 Vital Signs: Vital Signs: Last Vital Signs Temp 97.2 F 02/13/23 08:00 Pulse 66 02/13/23 08:00 Resp 17 02/13/23 08:00 BP 136/63 02/13/23 08:00 Pulse Ox 99 02/13/23 08:00 O2 Del Method Room Air 02/13/23 08:00 BMI result Body Mass Index 21.8 Objective Data Active Medications Acetaminophen (Acetaminophen Supp 650 Mg Supp.Rect) 650 mg [place] Q6H PRN PRN Reason: Pain, Mild (Pain Scale 1-3) Last Admin: 02/13/23 00:05 Dose: 650 mg Documented By: MAE Enoxaparin Sodium (Enoxaparin Sodium 40 Mg/0.4 Ml Syringe) 40 mg SUBCUT Q24H [facility] Last Admin: 02/12/23 21:26 Dose: 40 mg Documented By: AME Metronidazole (Flagyl) 500 mg in 100 mls @ 100 mls/hr IV Q8H [facility] Last Infusion: 02/13/23 07:05 Dose: Infused Documented By: GLEN Ceftriaxone Sodium 2 gm/ (Sodium Chloride) 50 mls @ 100 mls/hr IV Q24H [facility] Last Infusion: 02/12/23 22:28 Dose: Infused Documented By: MAE Lactated Ringer's (Lr) 1,000 mls @ 100 mls/hr IVCONT .Q10H [facility] Last Admin: 02/13/23 06:05 Dose: 100 mls/hr Documented By: MAE Promethazine HCl 12.5 mg/ (Sodium Chloride) 50.5 mls @ 202 mls/hr IV Q6H PRN PRN Reason: Nausea and Vomiting Levothyroxine Sodium (Levothyroxine Sodium 75 Mcg Tablet) 75 mcg PO DAILY [facility] Last Admin: 02/12/23 08:34 Dose: 75 mcg Documented By: CARMEN Melatonin (Melatonin 3 Mg Tablet) 6 mg PO BEDTIME PRN PRN Reason: Insomnia Morphine Sulfate (Morphine Sulfate 4 Mg/Ml Cartridge) 2 mg IVPUSH Q4H PRN; Protocol PRN Reason: Pain, Severe (Pain Scale 7-10) Last Admin: 02/12/23 08:33 Dose: 2 mg Documented By: CARMEN Ondansetron HCl (Ondansetron Hcl 4 Mg/2 Ml Vial) 4 mg IVPUSH Q8H PRN PRN Reason: Nausea and Vomiting Last Admin: 02/13/23 05:59 Dose: 4 mg Documented By: MAE Polyethylene Glycol (Polyethylene Glycol 3350 17 Gm Powd.Pack) 17 gm PO DAILY [facility] Last Admin: 02/12/23 08:41 Dose: Not Given Documented By: CARMEN Non-Admin Reason: Patient Refused Sodium Chloride (0.9 % Sodium Chloride Flush 3 Ml Syringe) 3 ml IVFLUSH QSHIFT [facility] Last Admin: 02/13/23 09:06 Dose: Not Given Documented By: GLEN Non-Admin Reason: IV Running Labs 02/10/23 19:25 02/11/23 05:35 Microbiology Microbiology Results: Microbiology 02/10/23 21:22 Blood Culture - Preliminary Blood - Venous No growth after 48 hours. 02/10/23 21:20 Blood Culture - Preliminary Blood - Venous No growth after 48 hours. Assessment and Plan (1) Diverticulitis: Status: Acute Plan This is a 57-year-old female with pertinent history of hypothyroidism, constipation and history of diverticulitis who presents to the emergency department for evaluation of abdominal pain. #. Acute uncomplicated diverticulitis, -continue IV Abx, IV fluid, pain med. Surgery consult on outpatient basis, advance diet as tolerated #. Diarrhea, likely in the setting of above. C diff negative #. Hypothyroidism. On Synthroid DVT prophylaxis: Lovenox Full code Need for inpt: need for IV Abx, IVF as not able to tolerate oral home today if tolerate po Time Spent With Patient Time: Total time managing care of this patient today ____ minutes. Quality Stroke Does the patient have a stroke diagnosis?: No VTE Prior VTE?: No VTE Risk Level:: Medical - moderate - high VTE Device Contraindication: Treatment Not Indicated VTE Drug Contraindication: N/A - Med Ordered
[2023-02-13] MEDS: Levothyroxine Sodium 75 MCG TABLET PO (09:11)
[2023-02-13 10:37] LABS: Appearance Urine Clear; Color Urine Yellow; Glucose Urine UA Negative (Negative); Leukocyte Esterase Urine Trace (Negative); Nitrite Urine Negative (Negative); Specific Gravity - Urine 1.015 (1.005-1.025); UMIC TRIGGER UACC YES; Urine Blood Negative (Negative); Urine Ketones >=160 mg/dL (Negative); Urine Protein Negative (Neg-Trace)
[2023-02-13 10:40] LABS: Bacteria Urine None Seen (None Seen); Hyaline Casts Urine 0-2 /LPF (0-2); RBC Urine 0-2 /HPF (0-2); Squamous Epithelial Cell Urine 0-2 /HPF (0-2); WBC Urine 0-5 /HPF (0-5)
[2023-02-13 15:34] VITALS: BP 137/65; PULSE 61; RESP 14; TEMP 36.3; O2SAT 98
[2023-02-13 19:33] VITALS: BP 139/63; PULSE 67; RESP 16; TEMP 36.2; O2SAT 98
[2023-02-13] MEDS: Enoxaparin Sodium 40 MG/0.4 ML SYRINGE SUBCUT (20:29)
[2023-02-13] MEDS: cefTRIAXone sodium 2 GM in 0.9 % Sodium Chloride 50 ML IV (22:09)
[2023-02-14 04:00] VITALS: BP 124/58; PULSE 66; RESP 14; TEMP 36.2; O2SAT 97
[2023-02-14] MEDS: metroNIDAZOLE/NS 500 MG/100 ML PIGGYBACK 100 MG IV (06:55)
[2023-02-14 07:29] VITALS: BP 142/80; PULSE 65; RESP 16; TEMP 36.2; O2SAT 95
--- NOTE | 2023-02-14 08:17 | P.PNIM_ITS ---
Subjective Subjective Date of Service: 02/14/23 Interval History: pain is better, but persistent nausea that she thinks is due to antibiotics Physical Exam 2 Vital Signs: Vital Signs: Last Vital Signs Temp 97.1 F 02/14/23 07:29 Pulse 65 02/14/23 07:29 Resp 16 02/14/23 07:29 BP 142/80 H 02/14/23 07:29 Pulse Ox 95 02/14/23 07:29 O2 Del Method Room Air 02/14/23 07:29 BMI result Body Mass Index 21.8 Const: Other: General: AO X 3, no acute distress Resp: CTA bilateral CVS: S1,S2,RRR GI: +BS, NT, no distention Skin: No rash Neuro: motor grossly intact Psych: appropriate affect Objective Data Active Medications Acetaminophen (Acetaminophen Supp 650 Mg Supp.Rect) 650 mg [place] Q6H PRN PRN Reason: Pain, Mild (Pain Scale 1-3) Last Admin: 02/13/23 09:56 Dose: 650 mg Documented By: GLEN Enoxaparin Sodium (Enoxaparin Sodium 40 Mg/0.4 Ml Syringe) 40 mg SUBCUT Q24H [facility] Last Admin: 02/13/23 20:29 Dose: 40 mg Documented By: CONG Promethazine HCl 12.5 mg/ (Sodium Chloride) 50.5 mls @ 202 mls/hr IV Q6H PRN PRN Reason: Nausea and Vomiting Last Infusion: 02/14/23 07:01 Dose: Infused Documented By: CONG Levothyroxine Sodium (Levothyroxine Sodium 75 Mcg Tablet) 75 mcg PO DAILY [facility] Last Admin: 02/13/23 09:11 Dose: 75 mcg Documented By: GLEN Melatonin (Melatonin 3 Mg Tablet) 6 mg PO BEDTIME PRN PRN Reason: Insomnia Morphine Sulfate (Morphine Sulfate 4 Mg/Ml Cartridge) 2 mg IVPUSH Q4H PRN; Protocol PRN Reason: Pain, Severe (Pain Scale 7-10) Last Admin: 02/12/23 08:33 Dose: 2 mg Documented By: CARMEN Ondansetron HCl (Ondansetron Hcl 4 Mg/2 Ml Vial) 4 mg IVPUSH Q8H PRN PRN Reason: Nausea and Vomiting Last Admin: 02/13/23 05:59 Dose: 4 mg Documented By: MAE Polyethylene Glycol (Polyethylene Glycol 3350 17 Gm Powd.Pack) 17 gm PO DAILY [facility] Last Admin: 02/13/23 09:11 Dose: Not Given Documented By: GLEN Non-Admin Reason: Patient Refused Sodium Chloride (0.9 % Sodium Chloride Flush 3 Ml Syringe) 3 ml IVFLUSH QSHIFT [facility] Last Admin: 02/13/23 20:31 Dose: 3 ml Documented By: CONG Labs 02/10/23 19:25 02/11/23 05:35 Labs: Laboratory Results - last 24 hr 02/13/23 Unknown Urine Color Yellow Urine Appearance Clear Urine pH 6.0 Ur Specific [place] 1.015 Urine Protein Negative Urine Glucose (UA) Negative Urine Ketones >=160 Urine Blood Negative Urine Nitrite Negative Ur Leukocyte Esterase Trace H Urine RBC 0-2 Urine WBC 0-5 Ur Squamous Epith Cells 0-2 Urine Bacteria None Seen Hyaline Casts 0-2 Assessment and Plan (1) Diverticulitis: Status: Acute Plan This is a 57-year-old female with pertinent history of hypothyroidism, constipation and history of diverticulitis who presents to the emergency department for evaluation of abdominal pain. #. Acute uncomplicated diverticulitis, -change Abx to Levaquin, first dose IV -outpatient surgery eval #. Diarrhea, likely in the setting of above. C diff negative #. Hypothyroidism. On Synthroid DVT prophylaxis: Lovenox Full code Need for inpt: need for IV Abx, IVF as not able to tolerate oral home today if tolerate po Time Spent With Patient Time: Total time managing care of this patient today ____ minutes. Quality Stroke Does the patient have a stroke diagnosis?: No VTE Prior VTE?: No VTE Risk Level:: Medical - moderate - high VTE Device Contraindication: Treatment Not Indicated VTE Drug Contraindication: N/A - Med Ordered
[2023-02-14] MEDS: ondansetron HCL 4 MG/2 ML VIAL IVPUSH (09:03)
[2023-02-14] MEDS: levoFLOXacin/D5W 500 MG/100 ML PIGGYBACK 100 MG IV (09:03)
[2023-02-14] MEDS: Levothyroxine Sodium 75 MCG TABLET PO (09:03)
[2023-02-14] MEDS: 0.9 % Sodium Chloride Flush 3 ML SYRINGE IVFLUSH ×2 (15:44→20:20)
[2023-02-14 16:00] VITALS: BP 157/67; PULSE 55; RESP 18; TEMP 36.1; O2SAT 98
[2023-02-14 19:44] VITALS: BP 136/63; PULSE 59; RESP 18; TEMP 36.2; O2SAT 97
[2023-02-14] MEDS: Enoxaparin Sodium 40 MG/0.4 ML SYRINGE SUBCUT (20:20)
[2023-02-15 03:25] VITALS: BP 119/58; PULSE 65; RESP 18; TEMP 36.4; O2SAT 98
[2023-02-15 07:22] VITALS: BP 139/66; PULSE 69; RESP 16; TEMP 36.6; O2SAT 99
--- NOTE | 2023-02-15 07:54 | PM.DS ---
DS: Providers Provider Date of Service: 02/15/23 Date of admission: 02/10/23 20:23 Primary care physician: Chari Rabago MD DS: Diagnosis Discharge Diagnosis (1) Diverticulitis: Status: Acute DS: Summary Hospital Course Hospital Course: Chief Complaint: Abdominal Pain This is a 57-year-old female with pertinent history of hypothyroidism, constipation and history of diverticulitis who presents to the emergency department for evaluation of abdominal pain. Patient states it started 1 day prior to presentation, in the left lower quadrant region, nonradiating, initially intermittent and now progressed to being constant and without any relieving factors. Patient presented to the ER on the day of presentation and was discharged home with p.o. antibiotics. CT abdomen revealed diverticulitis. Patient presents again after being discharged as she was unable to tolerate p.o. intake. She has had persistent nausea and nonbloody emesis and was unable to take p.o. antibiotics or tolerate any p.o. liquids. She states she is compliant with MiraLax which she was given for history of constipation and diverticulitis. Also states she has been having episodes of nonbloody diarrhea and has a history of C diff. does have associated chills but no documented fever. No chest discomfort, palpitations, shortness of breath, changes in urinary habits. In the emergency department, patient was initiated on IV antibiotics and hospital medicine team consulted for admission. Reviewed CT with acute diverticulitis Hospital course: The patient was admitted for treatment of acute diverticulitis associated with nausea and inability to tolerate PO, so she was given IVF and IV antibiotics initially with Flagyl and Ceftriaxone which she thought was causing nausea and therefore was changed to Levaquin and now with no pain no nausea and will be treated for 2 more days with Levaquin for a total of 7 days of antibiotics. She will follow up with surgery on an outpatient basis given multiple episodes of acute diverticulitis Time Spent with Patient Time attestation: Total time managing care of this patient today ____ minutes. Discharge coordination time: Greater than 30 minutes Quality: Safe Use of Opioids Does Pt have an Active Cancer Diagnosis on the Problem List?: No Quality: Stroke Does the patient have a stroke diagnosis?: No Physical Exam Vital Signs: Vital Signs: Last Vital Signs Temp 97.8 F 02/15/23 07:22 Pulse 69 02/15/23 07:22 Resp 16 02/15/23 07:22 BP 139/66 02/15/23 07:22 Pulse Ox 99 02/15/23 07:22 O2 Del Method Room Air 02/15/23 07:22 BMI result Body Mass Index 21.8 Const: Other: General: AO X 3, no acute distress Resp: CTA bilateral CVS: S1,S2,RRR GI: +BS, NT, no distention Skin: No rash Neuro: motor grossly intact Psych: appropriate affect DS: Data Data Completed and Pending Labs on day of discharge: Preliminary micro results at discharge 02/10/23 21:22 Blood Culture - Preliminary Blood - Venous No growth after 48 hours. 02/10/23 21:20 Blood Culture - Preliminary Blood - Venous No growth after 48 hours. Discharge Plan Discharge Anticipated Discharge Date/Time: 02/15/23 07:46 Patient Disposition: Home, Self-Care Discharge Diagnosis: Acute diverticulitis Referrals: Chari Rabago MD [Primary Care Provider] - 1 Week Nba Martinez MD [Physician] - 2 Weeks (diverticulitis, recurrent) Discharge Medications: New levofloxacin 500 mg tablet 500 mg PO DAILY 2 Days Qty: 2 0RF Continued levothyroxine 75 mcg tablet 75 mcg PO DAILY estradiol 0.01 % (0.1 mg/gram) cream 1 appful vaginal 2XW polyethylene glycol 3350 [Miralax] 17 gram Powder In Packet 17 g PO DAILY Adult 50 Plus Probiotic 4 billion cell capsule 4,000 mmu cells PO DAILY Rx Instructions: administer with a meal Discontinued amoxicillin-pot clavulanate 875-125 mg tablet 1 tab PO BID 7 Days Qty: 14 0RF Discharge Orders: Discharge Order (Routine); Ordered 02/15/23 Ordered By: Librado Gay Diet: Advance to usual diet Activity on Discharge: As tolerated Stand Alone Forms: Patient Portal Discharge page Care Plan Goals: recovery from diverticulitis Health Concerns: diverticulitis Plan of Treatment: take levaquin as directed for 2 more days follow up with your provider in a week, call for appointment follow up with Surgeon, call for appointment Assessment: as above
[2023-02-15] MEDS: Levothyroxine Sodium 75 MCG TABLET PO (08:19)
--- NOTE | 2023-02-15 08:25 | MHC.CM.PN ---
PT WILL DC HOME TODAY WITH NO SERVICES VIA PRIVATE TRANSPORT
== END 2023-02-15 09:58 | disposition home or self-care (01) | DRG 244 ==
LOC: HO.ED 20:03 → HO.EDOVER 20:35 → HO.S3 20:56
PROVIDERS: Physician Assistant; Admitting Provider Student in an Organized Health Care Education/Training Program; Emergency Provider Emergency Medicine; PCP Internal Medicine; Visit Provider Internal Medicine
DX: K57.92 Diverticulitis of intestine, part unspecified, without perforation or abscess without bleeding (principal); E03.9 Hypothyroidism, unspecified; R19.7 Diarrhea, unspecified; Z79.890 Hormone replacement therapy; Z79.899 Other long term (current) drug therapy
CPT/HCPCS: 36415; 74177; 80048; 80053; 80076; 81001; 83605; 83690; 83735; 85025; 87040; 87493; 96361; 96374; 96375; 96376; 99284; 99285; J0696; J1650; J1885; J1956; J2270; J2405; J2550; Q9967

== ENCOUNTER → 2023-02-10 20:23 | Outpatient (BNV) | payer BC, SELFPAY | PROVIDERS: Admitting Provider Student in an Organized Health Care Education/Training Program; Emergency Provider Emergency Medicine; PCP Internal Medicine; Visit Provider Student in an Organized Health Care Education/Training Program | DX: K57.92 Diverticulitis of intestine, part unspecified, without perforation or abscess without bleeding (principal) | CPT/HCPCS: 99222; 99232; 99239 ==

== ENCOUNTER 2023-02-27 08:49 | Outpatient (AMB) | payer BC, SELFPAY ==
--- NOTE | 2023-02-27 08:52 | MHC.PC.OV ---
Vital Signs 02/27/23 08:56 Height 5 ft 6 in Weight 133 lb BMI 21.5 BP 120/70 Blood Pressure Location Rt brachial Position Sitting Pulse 78 Pulse Source Pulse Oximeter Pulse Oximetry (%) 99 Oxygen Delivery Method Room Air Intake Visit Reasons: [facility] [place] [facility] Intake Note: patient is here today for [facility] [place] [facility] Allergies Sulfa (Sulfonamide Antibiotics) Allergy (Intermediate, Verified 02/27/23 09:48) Rash cephalexin [From KEFLEX] Allergy (Unknown, Verified 02/27/23 09:48) HIVES methylprednisolone [Medrol] Adverse Reaction (Unknown, Verified 02/27/23 09:48) grandiosity prednisone Adverse Reaction (Unknown, Verified 02/27/23 09:48) grandiosity Medication List - Last Reconciled 02/27/23 by Chari Rabago MD cholecalciferol (vitamin D3) 25 mcg PO DAILY estradiol 0.01%(0.1mg/gram) 1 appful vaginal 2XW lactobacillus combination no.9 (Adult 50 Plus Probiotic) 4,000 mmu cells PO DAILY levothyroxine 75 mcg PO DAILY Tobacco use date assessed: 02/27/23 Dental Screening Dental Screen Date: 02/27/23 Did you have a dental visit in the last 12 months?: Yes Did you have a dental problem in the last 6 months where you did not have access to dental care?: No Was dental information given to patient?: Patient has dentist HPI [facility] [place] divert[place] [facility] HPI Details 57-year-old lady here today for hospital follow-up after recent admission [phone] for diverticulitis. Has history of frequent recurrences of acute diverticulitis over the last 9 years . She was admitted for treatment of acute diverticulitis associated with nausea and inability to tolerate PO, given IVF and IV antibiotics initially with Flagyl and Ceftriaxone which she thought was causing nausea and therefore was changed to Levaquin, with resolution of symptoms, received for total of 7 days. She has an appointment for follow-up with Dr. Sun for further evaluation and management 03/03/2023, and has also an appointment with GI at [facility] in June for follow-up. She has been feeling back to normal, but still gets intermittent episodes of soft stools, but no further episodes of abdominal pain, no nausea vomiting or fever. Patient also would like to have her FMLA application completed . [facility] Medical History (Updated 02/27/23 @ 10:05 by Chari Rabago MD) History of diverticulitis of colon Irritable bowel syndrome with constipation and diarrhea SALLY positive Menopause Annual visit for general adult medical examination with abnormal findings Chronic leukopenia SALLY positive Cyst of right breast Narrow angle glaucoma suspect Recurrent cold sores Acquired hypothyroidism Surgical History (Updated 02/27/23 @ 09:56 by Chari Rabago MD) H/O colonoscopy Diverticulitis History of back surgery Family History Father Smoker CVD (cardiovascular disease) HTN (hypertension) Mother HTN (hypertension) CVD (cardiovascular disease) Pancreatic cancer Mental health disorder Maternal Grandfather Depression Cervical cancer Maternal Grandmother Alcoholism Paternal Grandfather Alcoholism Paternal Grandmother No problems noted. 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 1. Little interest or pleasure in doing things: not at all 2. Feeling down, depressed, or hopeless: not at all 3. Trouble falling or staying asleep, or sleeping too much: several days 4. Feeling tired or having little energy: several days 5. Poor appetite or overeating: not at all 6. Feeling bad about yourself - or that you are a failure or have let yourself or your family down: not at all 7. Trouble concentrating on things, such as reading the newspaper or watching television: not at all 8. Moving or speaking so slowly that other people could have noticed. Or the opposite - being so fidgety or restless that you have been moving around a lot more than usual: not at all 9. Thoughts that you would be better off or of hurting yourself in some way: not at all Total score: 2 Depression Screening Interpretation: Negative 14156 - PHQ-9 Billing: Yes Source: Developed by Drs. Victorino Burroughs, Sara Santos, Brody Rodriguez and colleagues, with an educational tami from [email or web address]. Thrive Questionnaire Date Thrive assessed: 02/27/23 I am a: Patient What is your living situation today?: I have a steady place to live Within the past 12 months, did the food you bought not last and you didn't have the money to get more?: Never true Within the past 12 months, did you worry whether your food would run out before you got money to buy more?: Never true Do you have trouble paying for medicines?: No Do you have trouble getting transportation to medical appointments?: No Do you have trouble paying your heating and electricity bill?: No Do you have trouble taking care of your child, family member or friend?: No Do you have trouble with day-to-day activities such as bathing, preparing meals, shopping, managing finances, etc.?: No Are you currently unemployed and looking for a job?: No Are you interested in more education?: No Please select the resources that you would like help with: None Currently or been in a relationship where the following occur: no concerns reported AUDIT C Alcohol Use Questionnaire (AUDIT-C) 1. How often do you have a drink containing alcohol?: Monthly or less 2. How many drinks containing alcohol do you have on a typical day when you are drinking?: 1 or 2 3. How often do you have six or more drinks on one occasion?: Never Total Score: 1 ERICK-7 AMB Questionnaire ERICK-7 Date ERICK - 7 assessed: 02/27/23 Feeling nervous, anxious, or on edge: 0 = Not at all Not being able to stop or control worryin = Not at all Worrying too much about different things: 0 = Not at all Trouble relaxin = Several days Being so restless that it is hard to sit still: 0 = Not at all Becoming easily annoyed or irritable: 0 = Not at all Feeling afraid as if something awful might happen: 0 = Not at all Total ERICK-7 score (0-4 normal; 5-9 mild; 10-14 moderate; 15-21 severe): 1 Source: Developed by Drs. Victorino Burroughs, Sara Santos, Brody Rodriguez and colleagues, with an educational tami from [email or web address]. ERICK-7 Assessment Billing ERICK-7 Assessment Tool: ERICK-7 Assessment 56213 Review of Systems Const Denies body aches, Denies fatigue, Denies fever(s), Denies headache(s) and Denies weakness Eyes Denies change in vision ENT Reports Normal hearing present, Denies dizziness, Denies headache(s), Denies nasal congestion, Denies nasal discharge and Denies sore throat Card Denies chest pain, Denies lightheadedness, Denies palpitations and Denies dyspnea Resp Denies chest congestion, Denies cough, Denies dyspnea and Denies wheezing GI Denies melena, Denies hematochezia, Denies heartburn and Denies nausea Denies urinary frequency, Denies dysuria and Denies urinary urgency Musc Details: occasional knee pain Skin/Breast Denies lesions and Denies rash Neuro Reports Normal hearing present, Denies dizziness, Denies headache(s), Denies Sensory deficit (Neuro) and Denies weakness Psych Reports no additional complaints Endo Denies fatigue, Denies polydipsia, Denies polyuria and Denies palpitations Claude/Lymph Denies easy bruising Aller/Immun Denies seasonal rhinorrhea and Denies wheezing Physical exam (Primary Care) Vital Signs: Last Vital Signs Pulse 78 02/27/23 08:56 BP 120/70 02/27/23 08:56 Pulse Ox 99 02/27/23 08:56 Oxygen Delivery Method Room Air 02/27/23 08:56 BMI result Body Mass Index 21.5 Tobacco/Smoking Status: Tobacco use Status Tobacco use date assessed 02/27/23 02/27/23 08:56 Patient Tobacco Use Status Never used Tobacco 02/27/23 08:56 e-Cigarette/Vaping Use Never Used 02/27/23 08:56 PHQ-9: PHQ-9 Score PHQ-9: Total score 2 02/27/23 09:24 Depression Screening Interpretation: Negative Thrive Assessment: Date of Thrive Assessment Date Thrive assessed 02/27/23 02/27/23 09:24 Currently or been in a relationship where the following occur: no concerns reported Const General: cooperative, healthy appearing, no acute distress and alert Orientation/consciousness: patient oriented x3 [facility] Head: Yes normocephalic Ears: external ears normal General nose exam: Normal external nose present Face and sinus: Yes normal facial exam and Yes face symmetric Mouth: Normal oral and palatal mucosa present, oropharynx normal and moist mucous membranes Throat: Yes posterior oropharynx normal Neck Neck: Yes full ROM and Yes no lymphadenopathy Resp Effort & Inspection: normal respiratory effort and able to speak in complete sentences Auscultation: clear to auscultation bilaterally Cardio Rate: regular rate Rhythm: regular rhythm Heart sounds: S1 normal heart sound present and S2 normal heart sound present GI Inspection: Yes normal to inspection Palpation (GI): Soft to palpation Auscultation: normal bowel sounds Skin General skin exam: no rashes or lesions noted Neuro General: patient oriented x3, gait normal, moves all extremities, no focal motor deficits and CN's II-XI intact bilaterally Cranial nerves: Yes Normal hearing present Cognition (Neuro): normal cognition Gait exam (Neuro): Normal gait present Motor exam (neuro): 5/5 motor strength present throughout Sensory Exam: No Sensory deficit (Neuro) Extrem General: Yes normal to inspection, Yes full ROM, Yes no joint enlargement, Yes no pedal edema, Yes no calf tenderness and Yes normal gait Assessment and Plan Assessment & Plan (1) Hospital discharge follow-up: Code(s): Z09 - Encounter for follow-up examination after completed treatment for conditions other than malignant neoplasm Plan: Patient has been feeling well, no further episodes of abdominal pain, no nausea vomiting or fever. Still having irregular bowel movements, usually with soft stools. Has been careful with her diet, avoiding seeds, nuts, and stays well hydrated. She has an appointment to see Dr. 03/03/2023 for follow-up and has an appointment with the GI doctor in [facility] in 06/2023 (2) History of diverticulitis of colon: Code(s): Z87.19 - Personal history of other diseases of the digestive system Plan: Continue with recommended diet, stay well-hydrated, stay active, has an appointment with colorectal surgeon, Dr. Keys is for follow-up to 03/03/2023 and has a follow-up appointment with her GI doctor including insulin June 2023. FMLA application completed and given back to patient , copy scanned into medical record (3) Recurrent cold sores: Code(s): B00.1 - Herpesviral vesicular dermatitis Plan: Refill prescription sent for Valtrex to use as needed for acute episodes of cold sore Medications: Refilled valacyclovir 2,000 mg (2 x 1 gram) PO Q12H PRN 4 tabs 6RF cold sore B00.1 - Herpesviral vesicular dermatitis valacyclovir 2,000 mg (2 x 1 gram) PO Q12H PRN 4 tabs 6RF cold sore Coding Level of Care Code Est Pt Level 4 (16237) Diagnoses Hospital discharge follow-up Z09 History of diverticulitis of colon Z87.19 Recurrent cold sores B00.1 Additional Codes ERICK-7 Assessment Billing - ERICK-7 Assessment Tool: ERICK-7 Assessment 22013 ([id number])
[2023-02-27 08:56] VITALS: BP 120/70; PULSE 78; O2SAT 99; BMI 21.5
== END 2023-02-27 09:57 | disposition home or self-care (01) ==
PROVIDERS: PCP Internal Medicine; Visit Provider Internal Medicine
DX: Z09 Encounter for follow-up examination after completed treatment for conditions other than malignant neoplasm (principal); Z87.19 Personal history of other diseases of the digestive system; B00.1 Herpesviral vesicular dermatitis
CPT/HCPCS: 99214

== ENCOUNTER 2023-02-28 15:18 | Outpatient (REF) | payer BC, SELFPAY ==
--- NOTE | ~2023-02-28 | US_ITS ---
EXAMINATION: US RETROPERITONEAL LIMITED CLINICAL INFORMATION: Calculus of kidney. COMPARISON: CT abdomen and pelvis 02/10/2023. TECHNIQUE: Real-time imaging of the right kidney. FINDINGS: RIGHT KIDNEY: 11.0 x 3.3 x 5.1 cm (SAG x AP x TRV). The kidney is normal in size, contour, and echogenicity. Renal cortical thickness is normal. No renal calculi or hydronephrosis. 1.2 x 0.7 x 0.9 cm cyst in the lateral mid to lower right kidney. This is stable in size dating back to CT abdomen 01/21/2014. No follow-up imaging is recommended. US/US renal RT IMPRESSION: 1.2 cm benign cyst in the lateral mid right kidney stable in size dating back to 01/21/2014.
== END 2023-02-28 15:19 | disposition home or self-care (01) ==
LOC: HO.US 15:18
PROVIDERS: PCP Internal Medicine; Visit Provider Internal Medicine
DX: N20.0 Calculus of kidney (principal)
CPT/HCPCS: 76775

== ENCOUNTER 2023-03-03 15:17 | Outpatient (AMB) | payer BC, SELFPAY ==
--- NOTE | 2023-03-03 15:23 | MHC.OFFVIS ---
Intake Vital Signs 03/03/23 15:23 Height 5 ft 6 in Intake Visit Reasons: diverticulitis Intake Note: This patient presents for an assessment for diverticulitis. Patient c/o; reports hospitalization 02/10-, patient had a colonoscopy in [facility] [place]. Bowling Floor Manager Required: No Accompanied by: Self / Same As Patient Allergies Sulfa (Sulfonamide Antibiotics) Allergy (Intermediate, Verified 03/03/23 15:35) Rash cephalexin [From KEFLEX] Allergy (Unknown, Verified 03/03/23 15:35) HIVES methylprednisolone [Medrol] Adverse Reaction (Unknown, Verified 03/03/23 15:35) grandiosity prednisone Adverse Reaction (Unknown, Verified 03/03/23 15:35) grandiosity Medication List - Last Reconciled 03/03/23 by Lucian Sun MD cholecalciferol (vitamin D3) 25 mcg PO DAILY estradiol 0.01%(0.1mg/gram) 1 appful vaginal 2XW lactobacillus combination no.9 (Adult 50 Plus Probiotic) 4,000 mmu cells PO DAILY levothyroxine 75 mcg PO DAILY valacyclovir 2,000 mg (2 x 1 gram) PO Q12H PRN valacyclovir 2,000 mg (2 x 1 gram) PO Q12H PRN HPI diverticulitis HPI Details 57 year female referred for diverticular disease. She was 1st diagnosed to have acute sigmoid diverticulitis in 2013. At that time, she had pericolonic abscess and had 2 drains placed. She then had subsequent C diff colitis at that time as well. Since that time, she has had this periodic left lower quadrant pain over the years. She says that often times, she really does not go to the ER anymore she stays on clear liquids until the pain would resolve in about 2-3 days. She went to the ER and was admitted again in 2018 for the same problem of acute diverticulitis. She went to the ER and was admitted again last February 10, 2023. She also says that since she had been diagnosed in 2013, feels that her bowel movements have not been the same. She would notice this to be in small amounts and says that she does not seem to empty well with BMs She had a colonoscopy done in 2020 in [facility] in this showed sigmoid diverticulosis and hemorrhoids. [facility] Medical History (Updated 03/03/23 @ 16:01 by Lucian Sun MD) Sigmoid diverticulitis History of diverticulitis of colon Irritable bowel syndrome with constipation and diarrhea SALLY positive Menopause Annual visit for general adult medical examination with abnormal findings Chronic leukopenia SALLY positive Cyst of right breast Narrow angle glaucoma suspect Recurrent cold sores Acquired hypothyroidism Surgical History H/O colonoscopy Diverticulitis History of back surgery Family History Father Smoker CVD (cardiovascular disease) HTN (hypertension) Mother HTN (hypertension) CVD (cardiovascular disease) Pancreatic cancer Mental health disorder Maternal Grandfather Depression Cervical cancer Maternal Grandmother Alcoholism Paternal Grandfather Alcoholism Paternal Grandmother No problems noted. 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 [employer] Cognitive needs: No Hearing needs: No Vision needs: Yes Review of Systems Const Denies chills and Denies fever(s) Card Denies chest pain, Denies dyspnea and Denies dyspnea on exertion Resp Denies cough, Denies dyspnea and Denies dyspnea on exertion GI Denies hematochezia and Denies change in bowel habits Denies hematuria Musc Reports back pain and Denies limited range of motion Neuro Denies focal weakness and Denies convulsions Psych Denies depression and Denies mood swings Physical Exam Const General: comfortable and no acute distress Orientation/consciousness: patient oriented x3 Neck Neck: Yes no lymphadenopathy Resp Auscultation: clear to auscultation bilaterally Cardio Rhythm: regular rhythm GI Palpation (GI): Soft to palpation, nontender and no guarding Neuro General: patient oriented x3 Assessment & Plan Assessment & Plan (1) Sigmoid diverticulitis: Code(s): K57.32 - Diverticulitis of large intestine without perforation or abscess without bleeding Plan: She has had multiple admissions for diverticulitis over the past 9 years. She says that she has episodes of left lower quadrant pain about 2-3 times a year but she does not go to the ER anymore as she just stays on clear liquids until this resolves I have reviewed her CAT scans from January, as well as from 2018. This shows inflammatory changes in the sigmoid colon consistent with acute diverticulitis. She also had history of CT drains placed in 2013 She feels that this pain has been persistent a recurrent over the years. She is contemplating on proceeding with sigmoid resection. I had a long discussion with her about the technique of hand assisted laparoscopic sigmoid resection and possible open resection. I had explained to her the risks including but not limited to bleeding, infections, injury to other organs including bowel and urinary tract, anastomotic leak, postop obstruction, blood clots , pneumonia, as well as the benefits and alternatives. She feels that she has had this problem frequently will call the office when she decides to proceed with the surgery I also explained to her what to expect postoperatively especially with regards to care. Coding Level of Care Code Est Pt Level 4 (24315) Diagnoses Sigmoid diverticulitis K57.32
== END 2023-03-03 15:57 | disposition home or self-care (01) ==
PROVIDERS: PCP Internal Medicine; Visit Provider Surgery
DX: K57.32 Diverticulitis of large intestine without perforation or abscess without bleeding (principal)
CPT/HCPCS: 99214

== ENCOUNTER → 2023-03-03 15:17 | Outpatient (BNVA) | payer BC, SELFPAY | PROVIDERS: PCP Internal Medicine; Visit Provider Surgery ==

== ENCOUNTER → 2023-05-09 12:45 | Outpatient (BNVA) | payer OTHER, SELFPAY | PROVIDERS: PCP Internal Medicine; Visit Provider Physician Assistant | DX: M24.812 Other specific joint derangements of left shoulder, not elsewhere classified (principal) | CPT/HCPCS: 99204 ==

== ENCOUNTER → 2023-05-15 10:37 | Outpatient (BNVA) | payer OTHER, SELFPAY | PROVIDERS: PCP Internal Medicine; Visit Provider Physician Assistant Medical | DX: M24.812 Other specific joint derangements of left shoulder, not elsewhere classified (principal) | CPT/HCPCS: 99213 ==

== ENCOUNTER 2023-05-21 08:25 | Outpatient (REF) | payer BC, SELFPAY ==
[2023-05-21 09:40] LABS: Alanine Aminotransferase 20 U/L (0-31); Aspartate Amino Transferase 25 U/L (5-31); Cholesterol 181 mg/dL (<200); HDL Cholesterol 96 mg/dL (>40); LDL Cholesterol Calculated 73 mg/dL (<100); Triglycerides 61 mg/dL (<150)
[2023-05-21 10:06] LABS: Thyroid Stimulating Hormone 2.79 uIU/mL (0.32-4.0); Vitamin D 25-OH Total 38.8 ng/mL (>30)
== END 2023-05-21 08:26 | disposition home or self-care (01) ==
LOC: HO.LAB 08:25
PROVIDERS: PCP Internal Medicine; Visit Provider Internal Medicine
DX: Z13.220 Encounter for screening for lipoid disorders (principal); E03.9 Hypothyroidism, unspecified; Z78.0 Asymptomatic menopausal state
CPT/HCPCS: 36415; 80061; 82306; 84443; 84450; 84460

== ENCOUNTER 2023-05-27 14:14 | Outpatient (REF) | payer OTHER, SELFPAY ==
--- NOTE | ~2023-05-27 | MR_ITS ---
EXAMINATION: MRI LEFT SHOULDER WITHOUT CONTRAST CLINICAL INFORMATION: Signs and symptoms of rotator cuff tear. Work injury. Pain. COMPARISON: Radiograph dated 05/09/2023. TECHNIQUE: MR images of the shoulder were obtained on a 1.5 Svtelana high-field strength scanner without intravenous contrast material. FINDINGS: ROTATOR CUFF: A partial-thickness bursal-sided tear measuring 2 x 4 mm (AP by longitudinal), involving the superficial quarter of the tendon cross-section, sparing the deep fibers. Subscapularis, infraspinatus, and teres minor tendons are intact. 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 No muscle atrophy or fatty infiltration. BICEPS: Normal. CORACOACROMIAL ARCH: The undersurface of the acromion is flat with no subacromial spur. [id number] acromioclavicular osteoarthritis. Mild subacromial-subdeltoid bursitis. LABRUM/CAPSULE: There is a focal tear of the posterosuperior glenoid labrum between the 12 o'clock position and 1 o'clock position measuring 0.7 cm AP, occurring along the chondrolabral junction. Labrum is otherwise intact. Joint capsule is normal. GLENOHUMERAL JOINT/MARROW: Bone marrow signal is normal. No fracture or malalignment. Articular cartilage appears well preserved. MR/MR shoulder LT wo con IMPRESSION: 1. A 2.1 cm focus of calcific tendinitis/bursitis at the posterior fibers of the supraspinatus and teres minor tendons. 2. Small 2 x 4 mm insertional bursal-sided partial tear of the supraspinatus tendon. Rotator cuff is otherwise intact. 3. [id number] acromioclavicular osteoarthritis. 4. Focal tear of the posterosuperior glenoid labrum.
== END 2023-05-27 14:15 | disposition home or self-care (01) ==
LOC: HO.MRI 14:14
PROVIDERS: PCP Internal Medicine; Visit Provider Internal Medicine
DX: M24.812 Other specific joint derangements of left shoulder, not elsewhere classified (principal)
CPT/HCPCS: 73221

== ENCOUNTER 2023-05-28 07:57 | Outpatient (AMB) | payer BC, SELFPAY ==
--- NOTE | 2023-05-28 08:03 | A.OFFPC_ITS ---
Vital Signs 05/28/23 08:08 Height 5 ft 6 in Weight 133 lb 4 oz BMI 21.5 BP 128/82 Blood Pressure Location Rt brachial Position Sitting Pulse 69 Pulse Source Pulse Oximeter Pulse Oximetry (%) 100 Oxygen Delivery Method Room Air Intake Visit Reasons: annual PE Intake Note: Pt is here for her Annual PE Allergies Sulfa (Sulfonamide Antibiotics) Allergy (Intermediate, Verified 06/20/23 19:10) Rash cephalexin [From KEFLEX] Allergy (Unknown, Verified 06/20/23 19:10) HIVES methylprednisolone [Medrol] Adverse Reaction (Unknown, Verified 06/20/23 19:10) grandiosity prednisone Adverse Reaction (Unknown, Verified 06/20/23 19:10) grandiosity Medication List - Last Reconciled 05/28/23 by Chari Rabago MD cholecalciferol (vitamin D3) 25 mcg PO DAILY cyclobenzaprine 5 mg PO BEDTIME PRN estradiol 0.01%(0.1mg/gram) 1 appful vaginal 2XW ibuprofen 800 mg PO TID lactobacillus combination no.9 (Adult 50 Plus Probiotic) 4,000 mmu cells PO DAILY levothyroxine 75 mcg PO DAILY valacyclovir 2,000 mg (2 x 1 gram) PO Q12H PRN valacyclovir 2,000 mg (2 x 1 gram) PO Q12H PRN Tobacco use date assessed: 05/28/23 Dental Screening Dental Screen Date: 05/28/23 Did you have a dental visit in the last 12 months?: Yes Did you have a dental problem in the last 6 months where you did not have access to dental care?: No Was dental information given to patient?: Patient has dentist HPI annual PE HPI Details 57-year-old lady here today for her phys ical exam. She has hypothyroidism currently stable and controlled on current dose of levothyroxine. Up-to-date with her screening mammogram and cervical cancer screening, goes to [facility]. She is also up-to-date with her screening colonoscopy done [place] [address] Chan. She had recent admission for an acute diverticulitis, at [facility], now feels well, but has been very careful with her diet, avoiding getting constipated. Has recurrent cold sores for which she takes Valtrex as needed. She is currently being seen at the workman's comp at [place] for acute left shoulder pain, with MRI showing calcific tendinosis/bursitis and small 2 x 4 mm insertional bursal-sided partial tear of the supraspinatus tendon. Rotator cuff is otherwise intact. [id number] acromioclavicular osteoarthritis, and a ocal tear of the posterosuperior glenoid labrum also seen. Patient has a follow-up appointment with her workman's comp doctor. Denies pain in left shoulder at present. [facility] Medical History Annual visit for general adult medical examination with abnormal findings Tear of left supraspinatus tendon Calcific tendinitis of left shoulder Sigmoid diverticulitis History of diverticulitis of colon Irritable bowel syndrome with constipation and diarrhea SALLY positive Menopause Chronic leukopenia SALLY positive Cyst of right breast Narrow angle glaucoma suspect Recurrent cold sores Acquired hypothyroidism Surgical History H/O colonoscopy Diverticulitis History of back surgery Family History Father Smoker CVD (cardiovascular disease) HTN (hypertension) Mother HTN (hypertension) CVD (cardiovascular disease) Pancreatic cancer Mental health disorder Maternal Grandfather Depression Cervical cancer Maternal Grandmother Alcoholism Paternal Grandfather Alcoholism Paternal Grandmother No problems noted. 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 1. Little interest or pleasure in doing things: not at all 2. Feeling down, depressed, or hopeless: not at all 3. Trouble falling or staying asleep, or sleeping too much: several days 4. Feeling tired or having little energy: several days 5. Poor appetite or overeating: not at all 6. Feeling bad about yourself - or that you are a failure or have let yourself or your family down: not at all 7. Trouble concentrating on things, such as reading the newspaper or watching television: not at all 8. Moving or speaking so slowly that other people could have noticed. Or the opposite - being so fidgety or restless that you have been moving around a lot more than usual: not at all 9. Thoughts that you would be better off or of hurting yourself in some way: not at all Total score: 2 Depression Screening Interpretation: Negative Depression Screening Done: Yes 22136 - PHQ-9 Billing: Yes Source: Developed by Drs. Victorino Burroughs, Sara Santos, Brody Rodriguez and colleagues, with an educational tami from [employer]. Thrive Questionnaire Date Thrive assessed: 02/27/23 Currently or been in a relationship where the following occur: no concerns reported AUDIT C Alcohol Use Questionnaire (AUDIT-C) 1. How often do you have a drink containing alcohol?: Never Total Score: 0 ERICK-7 AMB Questionnaire ERICK-7 Date ERICK - 7 assessed: 02/27/23 Source: Developed by Drs. Victorino Burroughs, Sara Santos, Brody Rodriguez and colleagues, with an educational tami from [employer]. Review of Systems Const Denies body aches, Denies fatigue, Denies fever(s), Denies headache(s) and Denies weakness Eyes Denies change in vision ENT Reports Normal hearing present, Denies dizziness, Denies headache(s), Denies nasal congestion, Denies nasal discharge and Denies sore throat Card Denies chest pain, Denies lightheadedness, Denies palpitations and Denies dyspnea Resp Denies chest congestion, Denies cough, Denies dyspnea and Denies wheezing GI Denies melena, Denies hematochezia, Denies heartburn and Denies nausea Denies urinary frequency, Denies dysuria and Denies urinary urgency Musc Reports as per HPI Skin/Breast Denies lesions and Denies rash Neuro Reports Normal hearing present, Denies dizziness, Denies headache(s), Denies Sensory deficit (Neuro) and Denies weakness Psych Reports no additional complaints Endo Denies fatigue, Denies polydipsia, Denies polyuria and Denies palpitations Claude/Lymph Denies easy bruising Aller/Immun Denies seasonal rhinorrhea and Denies wheezing Physical exam (Primary Care) Vital Signs: Last Vital Signs Pulse 69 05/28/23 08:08 BP 128/82 05/28/23 08:08 Pulse Ox 100 05/28/23 08:08 Oxygen Delivery Method Room Air 05/28/23 08:08 BMI result Body Mass Index 21.5 Tobacco/Smoking Status: Tobacco use Status Tobacco use date assessed 05/28/23 05/28/23 08:14 Patient Tobacco Use Status Never used Tobacco 05/28/23 08:04 e-Cigarette/Vaping Use Never Used 05/28/23 08:04 Depression Screening Interpretation: Negative Thrive Assessment: Date of Thrive Assessment Date Thrive assessed 02/27/23 05/28/23 08:04 Currently or been in a relationship where the following occur: no concerns reported [facility] Head: Yes normocephalic Ears: external ears normal General nose exam: Normal external nose present Face and sinus: Yes normal facial exam and Yes face symmetric Mouth: Normal oral and palatal mucosa present, oropharynx normal and moist mucous membranes Throat: Yes posterior oropharynx normal Neck Neck: Yes full ROM and Yes no lymphadenopathy Resp Effort & Inspection: normal respiratory effort and able to speak in complete sentences Auscultation: clear to auscultation bilaterally Cardio Rate: regular rate Rhythm: regular rhythm Heart sounds: S1 normal heart sound present and S2 normal heart sound present GI Inspection: Yes normal to inspection Palpation (GI): Soft to palpation Auscultation: normal bowel sounds General: Yes no CVA tenderness Back/Spine/Pelvis Back: no CVA tenderness Skin General skin exam: no rashes or lesions noted Neuro General: gait normal, moves all extremities, no focal motor deficits and CN's II-XI intact bilaterally Cranial nerves: Yes Normal hearing present Cognition (Neuro): normal cognition Gait exam (Neuro): Normal gait present Motor exam (neuro): 5/5 motor strength present throughout Sensory Exam: No Sensory deficit (Neuro) Extrem General: Yes normal to inspection, Yes full ROM, Yes no joint enlargement, Yes no pedal edema, Yes no calf tenderness and Yes normal gait Psych Appearance: grossly normal and well kempt Mental Status: mental status grossly normal Speech and movement: Normal speech and movement present Affect: normal affect Attitude: cooperative Thought process: Normal thought process present Thought content: Normal thought content present Results Reviewed Results Reviewed: ameena: Brittanie Chaidez Age/Sex: 57/F : 1965 Unit#: [id number] Attend Dr: Chari Rabago MD Re05/21/23 Status: DEP [facility] Disch: SPEC : [id number] PRETTY: 05/21/23 STATUS: COMP REQ : [id number] RECD: 05/21/[address]: Chari Rabago MD COMP: 05/21/23 ENTERED: 05/21/[address]: ORDERED: AST, ALT, Lipid Panel, Vitamin D 25-OH, TSH Test Result Flag Reference Site AST (GOT) 25 5-31 U/L ALT (GPT) 20 0-31 U/L Triglyceride 61 <150 mg/dL Desirable Triglyceride: less than 150 mg/dL Borderline High Triglyceride 150-199 mg/dL High Triglyceride: 200-499 mg/dL Very High Triglyceride: greater than or equal to 5OO mg/dL Cholesterol 181 <200 mg/dL Desirable Cholesterol: less than 200 mg/dL Borderline High Cholesterol: 200-239 mg/dL High Cholesterol: greater than 239 mg/dL LDL Calculated 73 <100 mg/dL Desirable LDL: less than 100 mg/dL Near Optimal/Above Optimal LDL: 110-129 mg/dL Borderline High LDL: 130-159 mg/dL High LDL: 160-189 mg/dL Very High LDL: greater than or equal to 190 mg/dL HDL 96 >40 mg/dL Desirable HDL: greater than 40 mg/dL Note: This HDL assay may give artificially low results in patients with liver disease. Vit D 25-OH Tot 38.8 >30 ng/mL Health Based Reference Values* < 20 ng/mL Deficient 20-30 ng/mL Insufficient > 30 ng/mL Sufficient *Yamel NAIK. N Engl J Med. 2007;357:266-280 Care must be taken in interpreting Vitamin D results from different laboratories and methodologies. Published data demonstrated that results from patients undergoing hemodialysis may show a negative bias when tested with various automated 25-OH vitamin D assays when compared to LC-MS/MS. When testing samples from patients whose predominant form of Vitamin D is Vitamin D2, such as patients receiving Vitamin D2 supplementation, results that are subtherapeutic should be confirmed with another method such as LC-MS/MS. TSH 3rd Gen. 2.79 0.32-4.0 uIU/mL Note: A sustained TSH level above 2.5 uIU/mL may warrant further investigation. TSH 3rd Generation ([facility]) Assessment and Plan Assessment & Plan (1) Annual visit for general adult medical examination with abnormal findings: Code(s): Z00.01 - Encounter for general adult medical examination with abnormal findings Plan: Fasting lab results reviewed with patient. Continue with regular. dental visit every 6 months and regular eye exams, at least every 2 years. Take adequate calcium in diet and vitamin-D 3 at 2000 IU per cap once a day, in addition to weight-bearing exercises to help maintain good muscle tone and weight control. Instructed to do self-breast exam, and yearly mammogram , up-to-date with her screening colonoscopy done by Dr. Chan and cervical cancer screening, goes to [facility]. (2) Chronic leukopenia: Comment: Followed by Dr. Valenzuela Code(s): D72.819 - Decreased white blood cell count, unspecified (3) Narrow angle glaucoma suspect: Comment: Followed by Dr. Gutierrez Code(s): H40.039 - Anatomical narrow angle, unspecified eye Qualifiers: Laterality: unspecified laterality Qualified Code(s): H40.039 - Anatomical narrow angle, unspecified eye Plan: Followed by Ophthalmology (4) Acquired hypothyroidism: Code(s): E03.9 - Hypothyroidism, unspecified Plan: 5 levels are within normal limits, continued on levothyroxine 75 mcg daily (5) Recurrent cold sores: Code(s): B00.1 - Herpesviral vesicular dermatitis Plan: Has valacyclovir prescription, to take as needed for sign of cold sore (6) History of diverticulitis of colon: Code(s): Z87.19 - Personal history of other diseases of the digestive system Plan: Currently asymptomatic, up-to-date with her screening colonoscopy (7) Calcific tendinitis of left shoulder: Comment: Workman's comp Code(s): M75.32 - Calcific tendinitis of left shoulder Plan: Followed by workman's comp (8) Tear of left supraspinatus tendon: Comment: Workman's comp Code(s): M75.102 - Unspecified rotator cuff tear or rupture of left shoulder, not specified as traumatic Plan: [facility] [employer] Coding Level of Care Code Est Pt Prev Care 40-64y(46070) Diagnoses Annual visit for general adult medical examination with abnormal findings Z00.01 Chronic leukopenia D72.819 Borderline glaucoma with anatomical narrow angle, unspecified laterality H40.039 Laterality: unspecified laterality Acquired hypothyroidism E03.9 Recurrent cold sores B00.1 History of diverticulitis of colon Z87.19 Calcific tendinitis of left shoulder M75.32 Tear of left supraspinatus tendon M75.102
[2023-05-28 08:08] VITALS: BP 128/82; PULSE 69; O2SAT 100; BMI 21.5
== END 2023-05-28 08:46 | disposition home or self-care (01) ==
PROVIDERS: PCP Internal Medicine; Visit Provider Internal Medicine
DX: Z00.00 Encounter for general adult medical examination without abnormal findings (principal); D72.819 Decreased white blood cell count, unspecified; E03.9 Hypothyroidism, unspecified; B00.1 Herpesviral vesicular dermatitis; Z87.19 Personal history of other diseases of the digestive system
CPT/HCPCS: 99396

== ENCOUNTER → 2023-05-29 09:59 | Outpatient (BNVA) | payer OTHER, SELFPAY | PROVIDERS: PCP Internal Medicine; Visit Provider Physician Assistant Medical | DX: M75.102 Unspecified rotator cuff tear or rupture of left shoulder, not specified as traumatic (principal); M75.52 Bursitis of left shoulder; M75.32 Calcific tendinitis of left shoulder | CPT/HCPCS: 99213 ==

== ENCOUNTER 2023-06-20 09:49 | Outpatient (AMB) | payer OTHER, SELFPAY ==
[2023-06-20 09:51] VITALS: BMI 21.5
--- NOTE | 2023-06-20 09:51 | A.OFFVIS_ITS ---
Intake Vital Signs 06/20/23 09:51 Height 5 ft 6 in Weight 133 lb 4 oz BMI 21.5 Intake Visit Reasons: [employer] WORK[employer] - Left shoulder px, DOI 05/08/23 Intake Note: Brittanie is a 58 year old Right handed female who presents today as a new patient for a evaluation of her left shoulder pain, WC DOI 05/08/23. 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 She states that her pain is more focused on the upper aspect of the shoulder and it stays around that area. Her pain is worse when when she raised her arm above her head , and it's better when she is resting her arm and using muscle relaxers and ibuprofen. Patient states that she will start physical therapy on Friday. Her pain today is a 1 on the pain scale. Allergies Sulfa (Sulfonamide Antibiotics) Allergy (Intermediate, Verified 06/20/23 09:58) Rash cephalexin [From KEFLEX] Allergy (Unknown, Verified 06/20/23 09:58) HIVES methylprednisolone [Medrol] Adverse Reaction (Unknown, Verified 06/20/23 09:58) grandiosity prednisone Adverse Reaction (Unknown, Verified 06/20/23 09:58) grandiosity HPI [employer] WORK[employer] - Left shoulder px, DOI 05/08/23 HPI Details 58-year-old right hand dominant female rukhsana robert presents in the office today, as a new patient, for an evaluation of left shoulder pain. The patient was seen at [facility] on 05/09/2023 with a complaint of sudden onset of pain in the left shoulder, which began around 05/08/2023. MRI of the left shoulder was obtained and she was referred to Orthopedics. The patient presents today states she believes she might have over done it at work. She claims her pain is more focused on the upper aspect of the left shoulder and it does not radiate. She states she has an increase in pain with raising her arm over her head. She reports she gets relief when resting her arm, using muscle relaxers, or Ibuprofen. The patient reports she is scheduled with physical therapy on Friday06/23/2023. She rates her pain as a 1/10 while in the office today. 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 [facility] Medical History Annual visit for general adult medical examination with abnormal findings Tear of left supraspinatus tendon Calcific tendinitis of left shoulder Sigmoid diverticulitis History of diverticulitis of colon Irritable bowel syndrome with constipation and diarrhea SALLY positive Menopause Chronic leukopenia SALLY positive Cyst of right breast Narrow angle glaucoma suspect Recurrent cold sores Acquired hypothyroidism Surgical History H/O colonoscopy Diverticulitis History of back surgery Family History Father Smoker CVD (cardiovascular disease) HTN (hypertension) Mother HTN (hypertension) CVD (cardiovascular disease) Pancreatic cancer Mental health disorder Maternal Grandfather Depression Cervical cancer Maternal Grandmother Alcoholism Paternal Grandfather Alcoholism Paternal Grandmother No problems noted. 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 [employer] Cognitive needs: No Hearing needs: No Vision needs: Yes Review of Systems Const All systems reviewed & are unremarkable except as noted in HPI and below Physical Exam Vital Signs: BMI result Body Mass Index 21.5 Const General: cooperative and no acute distress Orientation/consciousness: patient oriented x3 Resp Effort & Inspection: normal respiratory effort and able to speak in complete sentences Cardio Peripheral pulses: Peripheral pulses 2+ throughout Skin General skin exam: no rashes or lesions noted Neuro General: patient oriented x3 Extrem Other: Left shoulder: Normal to inspection. No ecchymosis, erythema, or edema. Full gem ulder ROM in all planes. Negative cross-body reach. 3/5 strength with empty can. Negative drop arm. NVI. Office Procedures Joint Injection/Drain Joint Injection/Drain Primary Site: right shoulder Prep: site was prepped using aseptic technique, ethochloride spray was applied and injection warnings given Injected: 80 mg of, DepoMedrol, with 8 mL of (2% plain lido ) and in the subcromial space Approach Used: posterolateral Procedure: The patient tolerated the procedure well, but had some pain with the injection and there was some relief with the local anesthesia Coding 90703 - Large joint Procedure code (CPT) selection complete Assessment & Plan Assessment & Plan (1) Calcific tendinitis of left shoulder: Comment: Workman's comp Code(s): M75.32 - Calcific tendinitis of left shoulder Plan Ms. Chaidez is a 58-year-old right hand dominant female who presents in the office today, as a new patient, for an evaluation of left shoulder pain. The patient was seen at [facility] on 05/09/2023 with a complaint of sudden onset of pain in the left shoulder, which began around 05/08/2023. MRI of the left shoulder was obtained and she was referred to Orthopedics. The patient presents today states she believes she might have over done it at work. She claims her pain is more focused on the upper aspect of the left shoulder and it does not radiate. She states she has an increase in pain with raising her arm over her head. She reports she gets relief when resting her arm, using muscle relaxers, or Ibuprofen. The patient reports she is scheduled with physical therapy on 06/23/2023. She rates her pain as a 1/10 while in the office today. 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 The patient was offered a cortisone injection in the left shoulder with 80 mg of DepoMedrol. The patient was explained the risk, benefits, and alternatives to receiving this injection. After receiving consent for the injection, the patient had the procedure done while in office today. The patient tolerated the procedure well with no complications. The patient is scheduled to attend physical therapy on Friday06/23/2023. I would like for her to attend all sessions. She was given a work note stating she will remain out of work until her telehealth follow up in 2 weeks when her return to work status and restrictions will be discussed. I would like for her to work with physical therapy for 2 weeks in conjunction with the cortisone injection that was administered today, to see if that helps to alleviate her symptoms. I would like to see if this aids in her progression with therapy. She will call the office for a telehealth visit to further discuss this in 2 weeks, or sooner if needed. Follow up will be in 6 weeks for a formal encounter in office, or sooner if needed. X-rays of the left shoulder, obtained on 05/09/2023, revealed no acute fractures or dislocation. It does show a large calcification embedded in the rotator cuff. MRI of the left shoulder, obtained on 05/27/2023, revealed: 1. A 2.1 cm focus of calcific tendinitis/bursitis at the posterior fibers of the supraspinatus and teres minor tendons. 2. Small 2 x 4 mm insertional bursal-sided partial tear of the supraspinatus tendon. Rotator cuff is otherwise intact. 3. [id number] acromioclavicular osteoarthritis. 4. Focal tear of the posterosuperior glenoid labrum. Patient Instructions: Scribed for Fanny Almendarez PA-C by Rosy Samuel medical imaging tech, on 06/20/2023 at 9:52 am, EST. Coding Level of Care Code New Pt Level 4 (62875) Diagnoses Calcific tendinitis of left shoulder M75.32 CPT Codes Coding - 42974 Large joint: 53304 - Large joint ([id number])
== END 2023-06-20 11:20 | disposition home or self-care (01) ==
PROVIDERS: PCP Internal Medicine; Visit Provider Physician Assistant
DX: M75.32 Calcific tendinitis of left shoulder (principal)
CPT/HCPCS: 20610; 99204

== ENCOUNTER → 2023-06-20 09:49 | Outpatient (BNVA) | payer OTHER, SELFPAY | PROVIDERS: PCP Internal Medicine; Visit Provider Physician Assistant | DX: M75.32 Calcific tendinitis of left shoulder (principal) | CPT/HCPCS: 20610; 99202; J1040 ==

== ENCOUNTER 2023-07-03 15:26 | Outpatient (AMB) | payer OTHER, SELFPAY ==
--- NOTE | 2023-07-03 15:22 | MHC.OFFVIS ---
Intake Intake Visit Reasons: Tel-left shoulder follow up Intake Note: Brittanie is a 58 year old right hand dominant female who presents today for a telehealth visit of her left shoulder calcific tendinitis. Patient reports she is doing well since she has been doing good at PT. Allergies Sulfa (Sulfonamide Antibiotics) Allergy (Intermediate, Verified 07/03/23 15:23) Rash cephalexin [From KEFLEX] Allergy (Unknown, Verified 07/03/23 15:23) HIVES methylprednisolone [Medrol] Adverse Reaction (Unknown, Verified 07/03/23 15:23) grandiosity prednisone Adverse Reaction (Unknown, Verified 07/03/23 15:23) grandiosity HPI Tel-left shoulder follow up HPI Details 58-year-old right hand dominant female who presents for a telehealth visit today for a follow up of left shoulder pain. I last saw the patient in the office on 06/20/2023 when she received a cortisone injection in the left shoulder. She was to begin PT on 06/23/2023 and to remain out of work until her follow up today. The patient confirms she is attending physical therapy. She states physical therapy states she strong. She states her shoulder is doing good. 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 [facility] Medical History Annual visit for general adult medical examination with abnormal findings Tear of left supraspinatus tendon Calcific tendinitis of left shoulder Sigmoid diverticulitis History of diverticulitis of colon Irritable bowel syndrome with constipation and diarrhea SALLY positive Menopause Chronic leukopenia SALLY positive Cyst of right breast Narrow angle glaucoma suspect Recurrent cold sores Acquired hypothyroidism Surgical History H/O colonoscopy Diverticulitis History of back surgery Family History Father Smoker CVD (cardiovascular disease) HTN (hypertension) Mother HTN (hypertension) CVD (cardiovascular disease) Pancreatic cancer Mental health disorder Maternal Grandfather Depression Cervical cancer Maternal Grandmother Alcoholism Paternal Grandfather Alcoholism Paternal Grandmother No problems noted. 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 Cognitive needs: No Hearing needs: No Vision needs: Yes Review of Systems Const All systems reviewed & are unremarkable except as noted in HPI and below Physical Exam Extrem Other: Deferred due to being a telehealth visit. Assessment & Plan Assessment & Plan (1) Calcific tendinitis of left shoulder: Comment: Workman's comp Code(s): M75.32 - Calcific tendinitis of left shoulder Plan Ms. Chaidez is a 58-year-old right hand dominant female who presents for a telehealth visit today for a follow up of left shoulder pain. I last saw the patient in the office on 06/20/2023 when she received a cortisone injection in the left shoulder. She was to begin PT on 06/23/2023 and to remain out of work until her follow up today. The patient confirms she is attending physical therapy. She states physical therapy states she strong. She states her shoulder is doing good. 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 Follow up will be PRN, or sooner if needed. Patient Instructions: Scribed for Fanny Almendarez PA-C by ian Inman scribe, on 07/03/2023 at 3:29 pm, EST. Telehealth Telehealth Location of provider rendering services: practice address Location of patient: address on file Patient Identification confirmed using: Name, : Yes Telehealth method: voice only Patient verbally consented to treatment: Yes Patient verbally consented to billing insurance company: Yes Patient informed of any privacy concerns related to visit: Yes Minutes spent on Phone/Video with Pt.: 2 Coding Level of Care Code Tele New Pt Level 3 (45158) Diagnoses Calcific tendinitis of left shoulder M75.32
== END 2023-07-03 15:30 | disposition home or self-care (01) ==
LOC: HO.HOS 15:27
PROVIDERS: PCP Internal Medicine; Visit Provider Physician Assistant
DX: M75.32 Calcific tendinitis of left shoulder (principal)
CPT/HCPCS: 99213

== ENCOUNTER → 2023-07-03 15:26 | Outpatient (BNVA) | payer OTHER, SELFPAY | PROVIDERS: PCP Internal Medicine; Visit Provider Physician Assistant ==

== ENCOUNTER 2023-07-18 04:24 | Inpatient (IN) | payer BC, SELFPAY ==
--- NOTE | ~2023-07-18 | CT_ITS ---
EXAMINATION: CT ABDOMEN AND PELVIS WITH CONTRAST CLINICAL INFORMATION: Pain. COMPARISON: None available. TECHNIQUE: Multidetector volumetric images were obtained from the superior aspect of the liver through the pubic symphysis following administration 85 mL of Omnipaque 350 intravenous contrast. Sagittal and coronal reformatted images were obtained on the technologist's workstation. Oral contrast: No This CT examination was performed using dose optimization techniques as appropriate, variously including the following: *Automated exposure control *Adjustment of mA and/or kV according to patient size (this includes techniques or standardized protocols for targeted exams where dose is matched to indication/reason for exam; i.e. extremities or head) *Use of iterative reconstruction technique DLP: 454 mGy-cm FINDINGS: LUNG BASES: There is scarring at the left lung base. LIVER, GALLBLADDER, AND BILIARY TREE: The liver is normal in size, shape, and attenuation. No focal hepatic lesion or biliary ductal dilatation is present. The gallbladder is unremarkable with no evidence of radiopaque gallstones, gallbladder wall thickening, or obvious pericholecystic inflammatory changes. PANCREAS: Unremarkable. SPLEEN: Unremarkable. ADRENAL GLANDS: Unremarkable. KIDNEYS AND URETERS: The kidneys are normal in size, shape, and attenuation. No hydronephrosis, hydroureter, or calculi seen. No perinephric stranding. There are a few right renal cysts measuring up to 1.5 cm BLADDER: Unremarkable. GASTROINTESTINAL TRACT: The appendix is visualized and is within normal limits. There are diverticula of the sigmoid colon with proximal sigmoid colonic thickening and surrounding infiltration. There is a small amount of free fluid within the pelvis. ABDOMINAL WALL: No significant hernia is appreciated. LYMPH NODES: Normal. VASCULAR: There are dilated venous structures within the left adnexa and a distended left ovarian vein PELVIC VISCERA: Unremarkable. OSSEOUS STRUCTURES: Unremarkable. CT/CT abdomen pelvis w IV con IMPRESSION: 1. Acute sigmoid diverticulitis. 2. Dilated venous structures within the left adnexa and a distended left ovarian vein. This can be seen in pelvic congestion syndrome. Fleischner guidelines were followed.
[2023-07-18 04:33] VITALS: BP 92/71; PULSE 89; RESP 20; TEMP 37.6; O2SAT 100; BMI 21.5
[2023-07-18 04:50] LABS: MANUAL DIFF FLAG NO
[2023-07-18 04:51] LABS: Basophils Percent Auto 0.1 % (0-2); Eosinophils Percent Auto 0.3 % (0-4); Hematocrit 35.6 % (37.0-47.0); Hemoglobin 12.2 g/dl (12.0-16.0); Imm Gran Abs Auto 0.02 X10*3/uL (0.00-0.03); Imm Gran Pct Auto 0.3 % (0.0-0.4); Mean Corpuscular HGB Conc 34.3 g/dl (31.0-35.0); Mean Corpuscular Hemoglobin 31.4 pg (27.0-33.0); Mean Corpuscular Volume 91.5 fL (80.0-98.0); Mean Platelet Volume 8.5 fL (9.4-12.3); Monocytes Absolute Auto 0.7 X10*3/uL (0.1-1.2); Monocytes Percent Auto 9.1 % (2-11); Neutrophils Percent Auto 77.2 % (45-73); Platelet Count 183 X10*3/uL (160-400); Red Blood Count 3.89 X10*6/uL (4.20-5.50); Red Cell Distribution Width 13.2 % (11.0-16.0); White Blood Count 7.7 X10*3/uL (4.8-10.8)
--- NOTE | 2023-07-18 04:54 | ED_ITS ---
HPI - Abdominal Pain General Chief Complaint: Abdominal Pain Stated Complaint: Diverticulitis Time Seen by Provider: 07/18/23 04:49 Source: patient, family and old records reviewed Mode of arrival: ambulatory Limitations: no limitations History of Present Illness HPI narrative: 58 yo female with PMH of hypothyroidism and diverticulitis in the past has required IR drainage for abscess she notes 3 days of abdominal pain that worsened to LLQ yesterday and some looser stools with nausea. No fevers, worried it is her diverticulitis. MD elicited complaint: abdominal pain Pertinent past history: diverticulitis Onset (ago): day(s) (3) Pain Consistency: constant Location: LLQ Severity: moderate Quality: aching Radiation: none Migration to: no migration Exacerbating factors: movement Relieving factors: nothing Context: history of similar episodes Associated symptoms: nausea and diarrhea Related Data Home Medications Medication Instructions Recorded Confirmed lactobacillus combination no.9 4 4,000 mmu cells PO DAILY 05/03/22 03/03/23 billion cell capsule (Adult 50 Plus Probiotic) estradiol 0.01% (0.1 mg/gram) 1 appful vaginal 2XW 02/10/23 03/03/23 vaginal cream levothyroxine 75 mcg tablet 75 mcg PO DAILY 02/10/23 03/03/23 cholecalciferol (vitamin D3) 25 25 mcg PO DAILY 02/27/23 03/03/23 mcg (1,000 unit) capsule Previous Rx's Medication Instructions Recorded valacyclovir 1 gram tablet 2,000 mg (2 x 1 gram) PO Q12H PRN 02/27/23 cold sore #4 tabs valacyclovir 1 gram tablet 2,000 mg (2 x 1 gram) PO Q12H PRN 02/27/23 cold sore #4 tabs cyclobenzaprine 5 mg tablet 5 mg PO BEDTIME PRN muscle spasm 05/09/23 #30 tabs ibuprofen 800 mg tablet 800 mg PO TID pain swelling #60 05/09/23 tabs Allergies Allergy/AdvReac Type Severity Reaction Status Date / Time Sulfa (Sulfonamide Allergy Intermediate Rash Verified 07/18/23 04:33 Antibiotics) cephalexin [From KEFLEX] Allergy Unknown HIVES Verified 07/18/23 04:33 methylprednisolone [Medrol] AdvReac Unknown grandiosity Verified 07/18/23 04:33 prednisone AdvReac Unknown grandiosity Verified 07/18/23 04:33 Review of Systems Review of Systems Constitutional : No Weight loss, No Fever, No Chills ENT/Mouth : No sore throat, No Rhinorrhea Eyes: No Swelling, No Redness Cardiovascular : No Chest Pain, No SOB, NoEdema Respiratory : No Cough, No Sputum, No Wheezing Gastrointestinal : Positive Nausea, no Vomiting, positive Diarrhea, positive abdominal Pain, No Hematochezia, No Melena Genitourinary : No Dysuria, No Urinary Frequency, No Hematuria, No Urgency Musculoskeletal : No joint pain, No Myalgias, No Joint Swelling Skin : No Skin Lesions, No rash Neuro : No Weakness, No Numbness, No Dizziness, No Headache Psych : No Anxiety/Panic, No Depression All other systems reviewed and are negative. [facility] Past Medical History Attestation statement: The following information was validated with the patient. Source: old records reviewed Medical History Annual visit for general adult medical examination with abnormal findings Tear of left supraspinatus tendon Calcific tendinitis of left shoulder Sigmoid diverticulitis History of diverticulitis of colon Irritable bowel syndrome with constipation and diarrhea SALLY positive Menopause Chronic leukopenia SALLY positive Cyst of right breast Narrow angle glaucoma suspect Recurrent cold sores Acquired hypothyroidism Surgical History H/O colonoscopy Diverticulitis History of back surgery Family History Family History Father Smoker CVD (cardiovascular disease) HTN (hypertension) Mother HTN (hypertension) CVD (cardiovascular disease) Pancreatic cancer Mental health disorder Maternal Grandfather Depression Cervical cancer Maternal Grandmother Alcoholism Paternal Grandfather Alcoholism Paternal Grandmother No problems noted. 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 Oriented X3. No acute distress. Eyes: Pupils equal, round and reactive to light. ENT: Pharynx normal. Neck: Normal inspection. Neck supple. CVS: Normal heart rate and rhythm. Pulses normal. Respiratory: No respiratory distress. Breath sounds normal. Abdomen: Soft and moderate LLQ pain no rebound ttp Skin: Skin warm and dry. Normal skin color. Normal skin turgor. Extremities: No lower extremity edema. No calf ttp Neuro: Oriented X 3. No motor deficit. No sensory deficit. Medical Decision Making Medical Decision Making [facility] Narrative: 58 yo female with PMH of diverticulitis with abscess requiring IR drainage here with c/o LLQ pain and nausea with some loose stools at this time labs, IVF x 2L, IV morphine for pain, CT scan for diverticulitis ordered, empiric antibiotics also ordered at this time Differential Diagnosis Differential Diagnoses: The differential diagnosis associated with the presentation includes diverticulitis, colitis, abscess Admission/Observation Consideration of admission/observation: Escalation of care including admission/observation considered will admit for fluids and pain control, stil has nausea Consult Healthcare Provider Management of the patient was discussed with: Hospitalist (will admit) Dr. Hernandez aware and will admit Lab Data [facility] Lab Attestation statement: I reviewed the patient's lab results. 07/18/23 04:46 07/18/23 04:46 Labs: Lab Results 07/18/23 07/18/23 Range/Units 04:46 05:03 WBC 7.7 (4.8-10.8) X10*3/uL RBC 3.89 L (4.20-5.50) X10*6/uL Hgb 12.2 (12.0-16.0) g/dl Hct 35.6 L (37.0-47.0) % MCV 91.5 (80.0-98.0) fL MCH 31.4 (27.0-33.0) pg MCHC 34.3 (31.0-35.0) g/dl RDW 13.2 (11.0-16.0) % Plt Count 183 (160-400) X10*3/uL MPV 8.5 L (9.4-12.3) fL Immature Gran % (Auto) 0.3 (0.0-0.4) % Neut % (Auto) 77.2 H (45-73) % Lymph % (Auto) 13.0 L (20-40) % [place] % (Auto) 9.1 (2-11) % Eos % (Auto) 0.3 (0-4) % Baso % (Auto) 0.1 (0-2) % Lymph # (Auto) 1.0 L (1.2-4.9) X10*3/uL [place] # (Auto) 0.7 (0.1-1.2) X10*3/uL Eos # (Auto) 0.0 (0.0-0.4) X10*3/uL Baso # (Auto) 0.0 (0.0-0.2) X10*3/uL Abs Immat Gran (auto) 0.02 (0.00-0.03) X10*3/uL Absolute Neuts (auto) 6.0 (2.0-8.3) x10*3/uL Absolute Nucleated RBC 0.000 (0.0-0.012) X10*3/uL Nucleated RBC % (auto) 0.0 (0.0-0.2) /100WBC Sodium 142 (135-145) mmol/L Potassium 3.7 (3.3-5.1) mmol/L Chloride 105 (96-108) mmol/L Carbon Dioxide 25 (22-29) mmol/L Anion Gap 16 (12-20) BUN 9 (9-16) mg/dL Creatinine 0.71 (0.5-1.4) mg/dL Estim Creat Clear Calc 78.9 Estimated GFR > 60 Random Glucose 116 H (60-115) mg/dL Lactic Acid 0.8 (0.5-2.0) mmol/L Calcium 9.4 D (8.4-10.2) mg/dL Total Bilirubin 1.3 H (0.0-1.0) mg/dL Direct Bilirubin 0.5 (0.0-0.5) mg/dL AST 18 (5-31) U/L ALT 13 (0-31) U/L Alkaline Phosphatase 46 (39-117) U/L Total Protein 7.6 (6.5-8.0) g/dL Albumin 4.4 (3.5-5.0) g/dL Lipase 10 (8-78) U/L Independent Interpretation I performed an independent interpretation of an: CT Scan (no abscess or perforation) Radiology Impression Discussion of test interpretation with radiology: I have reviewed the radiologist's reading. Independent Historian Clinical information obtained from an independent historian. History obtained from or confirmed by: Spouse External Record Review External record reviewed: Inpatient record Medications Administered Discontinued Medications Generic Name Dose Route Start Last Admin Trade Name Freq PRN Reason Stop Dose Admin Sodium Chloride 1,809.84 mls @ 1,809.84 mls/hr 07/18/23 04:44 07/18/23 05:33 Ns 30 ml/kg infuse over 1 hr (1809.84 ml) 07/18/23 05:43 1,809.84 mls/hr IV Administration .Q1H STA Levofloxacin 750 mg in 150 mls @ 100 mls/hr 07/18/23 04:53 07/18/23 05:32 Levaquin IV 07/18/23 06:22 100 mls/hr ONCE ONE Administration Metronidazole 500 mg in 100 mls @ 100 mls/hr 07/18/23 04:54 07/18/23 05:32 Flagyl IV 07/18/23 05:53 100 mls/hr ONCE ONE Administration Iohexol 85 ml 07/18/23 05:23 07/18/23 05:23 Iohexol 350 Mg/Ml 100 Ml Infus..Btl IV 07/18/23 05:24 85 ml ONCE ONE Administration Ketorolac Tromethamine 15 mg 07/18/23 04:44 07/18/23 05:15 Ketorolac Tromethamine 15 Mg/Ml Vial IVPUSH 07/18/23 04:45 15 mg ONCE ONE Administration Ondansetron HCl 4 mg 07/18/23 04:44 07/18/23 05:15 Ondansetron Hcl 4 Mg/2 Ml Vial IVPUSH 07/18/23 04:45 4 mg ONCE ONE Administration Discharge Plan Discharge Clinical Impression: Diverticulitis Abdominal pain Qualifiers: Abdominal location: left lower quadrant Qualified Code(s): R10.32 - Left lower quadrant pain Nausea & vomiting Qualifiers: Vomiting type: unspecified Qualified Code(s): R11.2 - Nausea with vomiting, unspecified Patient Disposition: Admitted As Inpatient Prescriptions: No Action levothyroxine 75 mcg tablet 75 mcg PO DAILY estradiol 0.01 % (0.1 mg/gram) cream 1 appful vaginal 2XW Adult 50 Plus Probiotic 4 billion cell capsule 4,000 mmu cells PO DAILY Rx Instructions: administer with a meal cholecalciferol (vitamin D3) 25 mcg (1,000 unit) capsule 25 mcg PO DAILY valacyclovir 1 gram tablet 2,000 mg PO Q12H PRN (Reason: cold sore) Qty: 4 6RF valacyclovir 1 gram tablet 2,000 mg PO Q12H PRN (Reason: cold sore) Qty: 4 6RF ibuprofen 800 mg tablet 800 mg PO TID Qty: 60 0RF cyclobenzaprine 5 mg tablet 5 mg PO BEDTIME PRN (Reason: muscle spasm) Qty: 30 0RF Rx Instructions: Do not drive or operate machinery for 8 hours after taking this medicine
[2023-07-18 05:06] LABS: Alanine Aminotransferase 13 U/L (0-31); Albumin Level 4.4 g/dL (3.5-5.0); Alkaline Phosphatase 46 U/L (39-117); Anion Gap 16 (12-20); Aspartate Amino Transferase 18 U/L (5-31); Bilirubin Direct 0.5 mg/dL (0.0-0.5); Bilirubin Total 1.3 mg/dL (0.0-1.0); Blood Urea Nitrogen 9 mg/dL (9-16); Calcium 9.4 mg/dL (8.4-10.2); Carbon Dioxide 25 mmol/L (22-29); Chloride 105 mmol/L (96-108); Creatinine Clr Calc Pharmacy 78.9; Estimated Glomerular Filt Rate > 60; Glucose Random 116 mg/dL (60-115); Lipase 10 U/L (8-78); Potassium 3.7 mmol/L (3.3-5.1); Sodium 142 mmol/L (135-145); Total Protein 7.6 g/dL (6.5-8.0)
[2023-07-18] MEDS: Ketorolac Tromethamine 15 MG/ML VIAL IVPUSH (05:15)
[2023-07-18] MEDS: ondansetron HCL 4 MG/2 ML VIAL IVPUSH ×2 (05:15→20:10)
[2023-07-18 05:17] LABS: Lactic Acid 0.8 mmol/L (0.5-2.0)
[2023-07-18] MEDS: iohexoL 350 MG/ML 100 ML INFUS..BTL 85 ML IV (05:23)
[2023-07-18] MEDS: levoFLOXacin/D5W 750 MG/150 ML PIGGYBACK 100 MG IV (05:32)
[2023-07-18] MEDS: metroNIDAZOLE/NS 500 MG/100 ML PIGGYBACK 100 MG IV (05:32)
[2023-07-18 07:35] VITALS: BP 110/44; PULSE 75; RESP 17; TEMP 37.4; O2SAT 99
[2023-07-18] MEDS: Morphine Sulfate 2 MG/ML CARTRIDGE IVPUSH (07:44)
--- NOTE | 2023-07-18 07:57 | PC.NURSE ---
patient currently a&oix3, vss, ivf running per order, pt c/o 5/10 abd pain which has decreased from 8-1010 abd pain, pt has + bm, last bm was yesterday- pt states shes chronically constipated and takes otc medications. call dixon within reach, will continue to monitor
--- NOTE | 2023-07-18 08:43 | P.HPHOSP_ITS ---
History of Present Illness Date of Service: 07/18/23 Chief Complaint: abdominal pain The patient is a 58 year old female with a PMH of IBS-C and diverticulitis requiring IR drainage who presents to [facility] with a several day history of abdominal pain which was generalized but then became severe in the LLQ. The patient reports associated nausea without vomiting. Last BM on the day prior to admission. Denies fevers or chills. Reports a long history of IBS-C and at least 4 bouts of diverticulitis requiring hospitalization. Reports last colonoscopy about 2-3 years ago. Denies other medical conditions. In the ED, she was given IV antibiotics, IV morphine, IV anti-emetics and IVF. She continues to have pain and intolerance to orals and hence, will be admitted for further management. Review of Systems 2 Review of Systems: Negative except HPI/interval history. [facility] Medical History Annual visit for general adult medical examination with abnormal findings Tear of left supraspinatus tendon Calcific tendinitis of left shoulder Sigmoid diverticulitis History of diverticulitis of colon Irritable bowel syndrome with constipation and diarrhea SALLY positive Menopause Chronic leukopenia SALLY positive Cyst of right breast Narrow angle glaucoma suspect Recurrent cold sores Acquired hypothyroidism Family History Father Smoker CVD (cardiovascular disease) HTN (hypertension) Mother HTN (hypertension) CVD (cardiovascular disease) Pancreatic cancer Mental health disorder Maternal Grandfather Depression Cervical cancer Maternal Grandmother Alcoholism Paternal Grandfather Alcoholism Paternal Grandmother No problems noted. 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 [employer] Cognitive needs: No Hearing needs: No Vision needs: Yes Meds Allergies Allergy/AdvReac Type Severity Reaction Status Date / Time Sulfa (Sulfonamide Allergy Intermediate Rash Verified 07/18/23 04:33 Antibiotics) cephalexin [From KEFLEX] Allergy Unknown HIVES Verified 07/18/23 04:33 methylprednisolone [Medrol] AdvReac Unknown grandiosity Verified 07/18/23 04:33 prednisone AdvReac Unknown grandiosity Verified 07/18/23 04:33 Home Medications Medication Instructions Recorded Confirmed Last Taken Type estradiol 0.01% (0.1 mg/gram) 1 appful vaginal 3XW 02/10/23 07/18/23 07/18/23 History vaginal cream levothyroxine 75 mcg tablet 75 mcg PO DAILY 02/10/23 07/18/23 07/18/23 History cholecalciferol (vitamin D3) 25 25 mcg PO DAILY 02/27/23 07/18/23 07/18/23 History mcg (1,000 unit) capsule acetaminophen 500 mg tablet 1,000 mg PO Q6H PRN Pain 07/18/23 07/18/23 Unknown History Physical Exam 2 Vital Signs and Narrative: Vital Signs: Last Vital Signs Temp 99.4 F 07/18/23 07:35 Pulse 75 07/18/23 07:35 Resp 17 07/18/23 07:35 BP 110/44 L 07/18/23 07:35 Pulse Ox 99 07/18/23 07:35 O2 Del Method Room Air 07/18/23 07:35 BMI result Body Mass Index 21.5 Const: Other: Constitutional - Awake and Alert, No apparent distress Eyes - PERRLA, EOMI Cardiovascular - S1S2, RRR, No edema Respiratory - Normal lung expansion, Normal respiratory effort, No respiratory distress, CTA bilaterally Gastrointestinal - LLQ TTP without rebound or guarding - No CVA tenderness Extremities - no calf tenderness bilaterally, no swelling Musculoskeletal - Normal inspection, normal ROM Skin - Warm/Dry Neurological - Alert & oriented x3, No focal deficit Psychological - Appropriate affect Results Labs 07/18/23 04:46 07/18/23 04:46 Labs: Laboratory Results - last 24 hr 07/18/23 07/18/23 04:46 05:03 MCV 91.5 MCH 31.4 MCHC 34.3 RDW 13.2 Plt Count 183 MPV 8.5 L Immature Gran % (Auto) 0.3 Neut % (Auto) 77.2 H Lymph % (Auto) 13.0 L [place] % (Auto) 9.1 Eos % (Auto) 0.3 Baso % (Auto) 0.1 Lymph # (Auto) 1.0 L [place] # (Auto) 0.7 Eos # (Auto) 0.0 Baso # (Auto) 0.0 Abs Immat Gran (auto) 0.02 Absolute Neuts (auto) 6.0 Absolute Nucleated RBC 0.000 Nucleated RBC % (auto) 0.0 Anion Gap 16 Estim Creat Clear Calc 78.9 Estimated GFR > 60 Random Glucose 116 H Lactic Acid 0.8 Calcium 9.4 D Total Bilirubin 1.3 H Direct Bilirubin 0.5 AST 18 ALT 13 Alkaline Phosphatase 46 Total Protein 7.6 Albumin 4.4 Lipase 10 Imaging Radiologist's Impressions: Impressions Abdomen/Pelvis CT 07/18/23 05:29 IMPRESSION: 1. Acute sigmoid diverticulitis. 2. Dilated venous structures within the left adnexa and a distended left ovarian vein. This can be seen in pelvic congestion syndrome. Fleischner guidelines were followed. Assessment and Plan (1) Diverticulitis: Status: Acute Plan 58 yo F with prior IBS-C and prior diverticulitis who presents with a 2 day history of abdominal pain and nausea. Work up in the ED shows sigmoid diverticulitis. Despite IV analgesics/antibiotics/anti-emetics, the patient continues to be symptomatic and will be admitted for further mgmt. 1. Acute sigmoid diverticulitis IV Rocepin/flagyl IV morpine and IV zofran PRN IVF clears when she can tolerate will need outpatient f/u with her GI 2. Hypothyroidism synthorid Pt with acute diverticulitis requiring IV antibiotics/morphine/zofran+ prior episodes which have been slow to respond and hence, I anticipate she will likely need 2-3 days of treatment with IV medications. Therefore, she will be admitted as inpatient. Quality Stroke Does the patient have a stroke diagnosis?: No VTE Prior VTE?: No VTE Risk Level:: Medical - moderate - high VTE Device Contraindication: Treatment Not Indicated VTE Drug Contraindication: N/A - Med Ordered
[2023-07-18] MEDS: Enoxaparin Sodium 40 MG/0.4 ML SYRINGE SUBCUT (09:11)
--- NOTE | 2023-07-18 09:12 | PC.NURSE ---
pt medicated per order
--- NOTE | 2023-07-18 10:15 | PHA.MEDREC ---
Pharmacy Consult ? Medication Reconciliation Pharmacy has completed the medication reconciliation.Confirmed medications with Patient. Reports that she was on Linzess 72mg (last dose yesterday) and will not be taking anymore as it did not work.
[2023-07-18 11:46] VITALS: BP 103/40; PULSE 70; RESP 16; TEMP 36.8; O2SAT 98
[2023-07-18] MEDS: Morphine Sulfate 4 MG/ML CARTRIDGE 2 MG IVPUSH ×3 (11:52→20:11)
--- NOTE | 2023-07-18 14:12 | PC.NURSE ---
pt currently sleeping, will defer pain scale at this time and reassess
[2023-07-18 15:35] VITALS: BP 120/58; PULSE 67; RESP 16; TEMP 36.3; O2SAT 97
[2023-07-18] MEDS: 0.9 % Sodium Chloride Flush 3 ML SYRINGE IVFLUSH ×2 (16:02→20:17)
[2023-07-18 16:09] VITALS: BMI 21.7
[2023-07-18 19:58] VITALS: BP 108/52; PULSE 71; RESP 18; TEMP 36.7; O2SAT 97
[2023-07-18] MEDS: 0.9 % Sodium Chloride 1,000 ML 100 ML IVCONT (21:01)
[2023-07-19 03:54] VITALS: BP 109/53; PULSE 62; RESP 19; TEMP 36.2; O2SAT 98
[2023-07-19] MEDS: Morphine Sulfate 4 MG/ML CARTRIDGE 2 MG IVPUSH (04:38)
[2023-07-19] MEDS: ondansetron HCL 4 MG/2 ML VIAL IVPUSH (04:38)
[2023-07-19 05:03] LABS: Appearance Urine Clear; Color Urine Yellow; Glucose Urine UA Negative (Negative); Leukocyte Esterase Urine Negative (Negative); Nitrite Urine Negative (Negative); Urine Blood Negative (Negative); Urine Ketones >=160 mg/dL (Negative); Urine Protein Negative (Neg-Trace)
[2023-07-19] MEDS: Levothyroxine Sodium 75 MCG TABLET PO (05:52)
[2023-07-19 07:32] VITALS: BP 113/54; PULSE 64; RESP 17; TEMP 36.3; O2SAT 96
[2023-07-19] MEDS: Enoxaparin Sodium 40 MG/0.4 ML SYRINGE SUBCUT (07:46)
[2023-07-19] MEDS: 0.9 % Sodium Chloride Flush 3 ML SYRINGE IVFLUSH (07:46)
[2023-07-19] MEDS: cefTRIAXone sodium 1 GM in 0.9 % Sodium Chloride 50 ML IV (11:39)
[2023-07-19] MEDS: metroNIDAZOLE/NS 500 MG/100 ML PIGGYBACK 100 MG IV (12:27)
--- NOTE | 2023-07-19 13:53 | P.DS_ITS ---
DS: Providers Provider Date of Service: 07/19/23 Date of admission: 07/18/23 08:41 Primary care physician: Chari Rabago MD DS: Diagnosis Discharge Diagnosis (1) Diverticulitis: Status: Acute DS: Summary Hospital Course Hospital Course: History and physical as per admitting provider. The patient is a 58 year old female with a PMH of IBS-C and diverticulitis requiring IR drainage who presents to [facility] ED with a several day history of abdominal pain which was generalized but then became severe in the LLQ. The patient reports associated nausea without vomiting. Last BM on the day prior to admission. Denies fevers or chills. Reports a long history of IBS-C and at least 4 bouts of diverticulitis requiring hospitalization. Reports last colonoscopy about 2-3 years ago. Denies other medical conditions. In the ED, she was given IV antibiotics, IV morphine, IV anti-emetics and IVF. She continues to have pain and intolerance to orals and hence, will be admitted for further management. 58-year-old woman treated for acute sigmoid diverticulitis. Treated with IV Rocephin and Flagyl, morphine and Zofran. She was started on clear liquid diet and requested a solid diet. She was able to eat without any nausea or vomiting or diarrhea. Abdominal pain has subsided and she has requested to be discharged home. Plan is for discharge home to continue antibiotics for 10 days, Zofran as needed. She has a follow-up appointment with a general surgeon and she should keep that appointment. Hypothyroidism. Continue levothyroxine Time Attestation Discharge coordination time: Greater than 30 minutes Quality: Safe Use of Opioids Does Pt have an Active Cancer Diagnosis on the Problem List?: No Quality: Stroke Does the patient have a stroke diagnosis?: No Physical Exam Vital Signs: Vital Signs: Last Vital Signs Temp 97.3 F 07/19/23 07:32 Pulse 64 07/19/23 07:32 Resp 07/19/23 07:32 BP 113/54 L 07/19/23 07:32 Pulse Ox 96 07/19/23 07:32 O2 Del Method Room Air 07/19/23 07:32 BMI result Body Mass Index 21.7 Appearing in no acute distress head is normocephalic atraumatic eyes pupils are PERRLA sclera is anicteric mouth throat mucous membranes are intact and moist neck is supple no lymphadenopathy, no JVD noted lung sounds are clear to auscultation heart regular rate rhythm, clear S1, S2 positive bowel sounds, abdomen is soft, nontender neuro patient is alert x3, no focal deficits DS: Data Data Completed and Pending Labs on day of discharge: Laboratory Results - last 24 hr 07/19/23 04:55 Urine Color Yellow Urine Appearance Clear Urine pH 6.0 Ur Specific [place] 1.020 Urine Protein Negative Urine Glucose (UA) Negative Urine Ketones >=160 Urine Blood Negative Urine Nitrite Negative Ur Leukocyte Esterase Negative Preliminary micro results at discharge 07/18/23 05:12 Blood Culture - Preliminary Blood - Venous No growth after 24 hours. 07/18/23 05:03 Blood Culture - Preliminary Blood - Venous No growth after 24 hours. Discharge Plan Discharge Anticipated Discharge Date/Time: 07/19/23 13:43 Patient Disposition: Home, Self-Care Discharge Diagnosis: Diverticulitis Referrals: Chari Rabago MD [Primary Care Provider] - 1 Week Discharge Medications: New levofloxacin 500 mg tablet 500 mg PO DAILY Qty: 10 0RF metronidazole 500 mg tablet 500 mg PO Q8H Qty: 30 0RF ondansetron 4 mg tablet,disintegrating 4 mg PO Q8H PRN (Reason: nausea and vomiting) Qty: 9 0RF Continued levothyroxine 75 mcg tablet 75 mcg PO DAILY estradiol 0.01 % (0.1 mg/gram) cream 1 appful vaginal 3XW acetaminophen 500 mg Tablet 1,000 mg PO Q6H PRN (Reason: Pain) cholecalciferol (vitamin D3) 25 mcg (1,000 unit) capsule 25 mcg PO DAILY Discharge Orders: Discharge Order (Routine); Ordered 07/19/23 Ordered By: Deysi Garcia Diet: Advance to usual diet Activity on Discharge: As tolerated Stand Alone Forms: Patient Portal Discharge page Care Plan Goals: Complete resolution of symptoms Health Concerns: Diverticulitis Plan of Treatment: Follow-up with primary care provider as needed Take all medications as prescribed Assessment: See discharge summary
--- NOTE | 2023-07-19 16:06 | MHC.CM.PN ---
PT DISCHARGED PRIOR TO BEING SEEN BY CM PER EMR, PT LIVES WITH HER AND IS INDEPENDENT WITH CARE COPY OF HCP HAS BEEN REQUESTED DURING PREVIOUS ADMISSIONS PCP: ALISON POTTS PT DISCHARGED HOME WITH NO SERVICES VIA PRIVATE TRANSPORT
== END 2023-07-19 14:13 | disposition home or self-care (01) | DRG 244 ==
LOC: HO.ED 06:39 → HO.EDOVER 08:55 → HO.S3 14:53
PROVIDERS: Admitting Provider Family Medicine; Emergency Provider Emergency Medicine; PCP Internal Medicine; Visit Provider Nurse Practitioner Acute Care
DX: K57.32 Diverticulitis of large intestine without perforation or abscess without bleeding (principal); E03.9 Hypothyroidism, unspecified; Z79.890 Hormone replacement therapy; Z79.899 Other long term (current) drug therapy
CPT/HCPCS: 36415; 74177; 80048; 80076; 81003; 83605; 83690; 85025; 87040; 99285; J0696; J1650; J1836; J1885; J1956; J2270; J2405; Q9967

== ENCOUNTER → 2023-07-18 08:41 | Outpatient (BNV) | payer BC, SELFPAY | PROVIDERS: Admitting Provider Family Medicine; Emergency Provider Emergency Medicine; PCP Internal Medicine; Visit Provider Family Medicine | DX: K57.32 Diverticulitis of large intestine without perforation or abscess without bleeding (principal); R10.32 Left lower quadrant pain; R11.0 Nausea; I10 Essential (primary) hypertension | CPT/HCPCS: 99223; 99238 ==

== ENCOUNTER 2023-07-31 14:09 | Outpatient (AMB) | payer BC, SELFPAY ==
--- NOTE | 2023-07-31 14:10 | A.OFFVIS_ITS ---
Intake Intake Visit Reasons: Re-discuss surgery Intake Note: This patient presents to re-discuss sigmoid resection. Pt c/o; reports diverticulitis flare-up 2 weeks ago. Waterproofer Helper Required: No Accompanied by: Other Relationship Allergies Sulfa (Sulfonamide Antibiotics) Allergy (Intermediate, Verified 07/31/23 14:13) Rash cephalexin [From KEFLEX] Allergy (Unknown, Verified 07/31/23 14:13) HIVES methylprednisolone [Medrol] Adverse Reaction (Unknown, Verified 07/31/23 14:13) grandiosity prednisone Adverse Reaction (Unknown, Verified 07/31/23 14:13) grandiosity HPI Re-discuss surgery HPI Details 57 year female here for follow-up for di verticular disease. She was 1st diagnosed to have acute sigmoid diverticulitis in 2013. At that time, she had pericolonic abscess and had 2 drains placed. She then had subsequent C diff colitis at that time as well. Since that time, she has had this periodic left lower quadrant pain over the years. She says that often times, she really does not go to the ER anymore she stays on clear liquids until the pain would resolve in about 2-3 days. She went to the ER and was admitted again in 2017 for the same problem of acute diverticulitis. She went to the ER and was admitted again last February 10, 2023. She also says that since she had been diagnosed in 2013, feels that her bowel movements have not been the same. She would notice this to be in small amounts and says that she does not seem to empty well with BMs She had a colonoscopy done in 2020 in [facility] in this showed sigmoid diverticulosis and hemorrhoids. She was admitted overnight to the hospital last 07/18/2023 because of acute diverticulitis again. I had last seen her in the office last March, for her recurrent diverticulitis. We had a long discussion about the option of sigmoid resection. She was undecided at that time. [facility] Medical History Annual visit for general adult medical examination with abnormal findings Tear of left supraspinatus tendon Calcific tendinitis of left shoulder Sigmoid diverticulitis History of diverticulitis of colon Irritable bowel syndrome with constipation and diarrhea SALLY positive Menopause Chronic leukopenia SALLY positive Cyst of right breast Narrow angle glaucoma suspect Recurrent cold sores Acquired hypothyroidism Surgical History H/O colonoscopy Diverticulitis History of back surgery Family History Father Smoker CVD (cardiovascular disease) HTN (hypertension) Mother HTN (hypertension) CVD (cardiovascular disease) Pancreatic cancer Mental health disorder Maternal Grandfather Depression Cervical cancer Maternal Grandmother Alcoholism Paternal Grandfather Alcoholism Paternal Grandmother No problems noted. 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 She says that she has episodes of left lower quadrant pain about 2-3 times a year but she does not go to the ER anymore as she just stays on clear liquids until this resolves I have reviewed her CAT scans from January, as well as from 2019. This shows inflammatory changes in the sigmoid colon consistent with acute diverticulitis. She also had history of CT drains placed in 2013 She feels that this pain has been persistent and recurrent over the years. I last saw her in March, and at that time, she was considering surgery. However, she had a left shoulder problem so she had to put this off. She had another episode of acute diverticulitis 2 weeks ago and had to stay in the hospital overnight. She feels much better now after a course of antibiotics. Review of her CT scan shows that this is always seems segment of sigmoid that is involved. I had a long discussion with her about the technique of hand assisted laparoscopic sigmoid resection and possible open resection. I had explained to her the risks including but not limited to bleeding, infections, injury to other organs including bowel and urinary tract, anastomotic leak, postop obstruction, blood clots , pneumonia, as well as the benefits and alternatives. She feels that she has had this problem frequently for so many years now and wants to proceed. I also described to her what to expect postoperatively. Her was with her during the entire discussion. Medications: New sodium,potassium,mag sulfates 17.5-3.13-1.6 gram (Suprep Bowel Prep Kit) DILUTE; drink full amount early evening before AND next morning at least 2 hr before procedure; follow w 960 mL water PO 354 mL 0RF Coding Level of Care Code Est Pt Level 4 (31089) Diagnoses Sigmoid diverticulitis K57.32
== END 2023-07-31 14:40 | disposition home or self-care (01) ==
PROVIDERS: PCP Internal Medicine; Referring Provider Internal Medicine; Visit Provider Surgery
DX: K57.32 Diverticulitis of large intestine without perforation or abscess without bleeding (principal)
CPT/HCPCS: 99214

== ENCOUNTER → 2023-07-31 14:09 | Outpatient (BNVA) | payer BC, SELFPAY | PROVIDERS: PCP Internal Medicine; Visit Provider Surgery ==

== ENCOUNTER 2023-08-01 09:23 | Outpatient (AMB) | payer OTHER, SELFPAY ==
--- NOTE | 2023-08-01 09:15 | A.OFFVIS_ITS ---
Intake Intake Visit Reasons: Tele - lt shldr calcific tendinitis Intake Note: Brittanie is a 58 year old right hand dominant female who presents today for a telehealth visit of her left shoulder calcific tendinitis last inj 06/20/23. Patient reports her last injection is still giving her relief. Allergies Sulfa (Sulfonamide Antibiotics) Allergy (Intermediate, Verified 07/31/23 14:13) Rash cephalexin [From KEFLEX] Allergy (Unknown, Verified 07/31/23 14:13) HIVES methylprednisolone [Medrol] Adverse Reaction (Unknown, Verified 07/31/23 14:13) grandiosity prednisone Adverse Reaction (Unknown, Verified 07/31/23 14:13) grandiosity HPI Tele - lt shldr calcific tendinitis HPI Details 58-year-old female who presents teleheal th visit today for a follow up of left shoulder pain. 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 The patient reports she is doing well and her symptoms have resolved. [facility] Medical History Annual visit for general adult medical examination with abnormal findings Tear of left supraspinatus tendon Calcific tendinitis of left shoulder Sigmoid diverticulitis History of diverticulitis of colon Irritable bowel syndrome with constipation and diarrhea SALLY positive Menopause Chronic leukopenia SALLY positive Cyst of right breast Narrow angle glaucoma suspect Recurrent cold sores Acquired hypothyroidism Surgical History H/O colonoscopy Diverticulitis History of back surgery Family History Father Smoker CVD (cardiovascular disease) HTN (hypertension) Mother HTN (hypertension) CVD (cardiovascular disease) Pancreatic cancer Mental health disorder Maternal Grandfather Depression Cervical cancer Maternal Grandmother Alcoholism Paternal Grandfather Alcoholism Paternal Grandmother No problems noted. 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 Assessment & Plan Assessment & Plan (1) Calcific tendinitis of left shoulder: Comment: Workman's comp Code(s): M75.32 - Calcific tendinitis of left shoulder Plan Ms Chaidez is a 58-year-old female who presents telehealth visit today for a follow up of left shoulder pain. 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 The patient reports she is doing well and her symptoms have resolved. The patient may return to normal activities as tolerated. Follow up will be PRN, or sooner if needed. Patient Instructions: Scribed by [facility], for Fanny Almendarez PA-C on 08/01/2023 at 9:20 am, EST. Telehealth Telehealth Location of provider rendering services: practice address Location of patient: address on file Patient Identification confirmed using: Name, : Yes Telehealth method: voice only Patient verbally consented to treatment: Yes Patient verbally consented to billing insurance company: Yes Patient informed of any privacy concerns related to visit: Yes Minutes spent on Phone/Video with Pt.: 10 Coding Level of Care Code Tele [facility] Pt Level 3 (89828) Diagnoses Calcific tendinitis of left shoulder M75.32
== END 2023-08-01 09:52 | disposition home or self-care (01) ==
PROVIDERS: PCP Internal Medicine; Visit Provider Physician Assistant
DX: M75.32 Calcific tendinitis of left shoulder (principal); Y99.0 Civilian activity done for income or pay; Z04.2 Encounter for examination and observation following work accident
CPT/HCPCS: 99212

== ENCOUNTER → 2023-08-01 09:23 | Outpatient (BNVA) | payer OTHER, SELFPAY | PROVIDERS: PCP Internal Medicine; Visit Provider Physician Assistant ==

== ENCOUNTER → 2023-08-21 13:30 | Outpatient (BNV) | payer BC, SELFPAY | PROVIDERS: Admitting Provider Surgery; PCP Internal Medicine; Visit Provider Internal Medicine | DX: Z01.818 Encounter for other preprocedural examination (principal); K57.32 Diverticulitis of large intestine without perforation or abscess without bleeding | CPT/HCPCS: 93010 ==

== ENCOUNTER 2023-09-02 07:46 | Inpatient (IN) | payer BC, SELFPAY ==
--- NOTE | 2023-08-21 | ECG_ITS ---
Test Reason : preop Blood Pressure : / mmHG Vent. Rate : 059 BPM Atrial Rate : 059 BPM P-R Int : 158 ms QRS Dur : 092 ms QT Int : 442 ms P-R-T Axes : 000 -20 025 degrees QTc Int : 437 ms Sinus bradycardia Incomplete right bundle branch block Borderline ECG When compared with ECG of 28-MAY-2019 07:59, No significant change was found Referred By: Wanda Guzman Electronically Signed By:JENNIE JACKSON
[2023-08-21 12:46] VITALS: BP 127/57; PULSE 68; RESP 16; O2SAT 98; BMI 22.1
[2023-08-21 13:52] LABS: Hematocrit 38.6 % (37.0-47.0); Mean Corpuscular HGB Conc 33.7 g/dl (31.0-35.0); Mean Corpuscular Hemoglobin 31.6 pg (27.0-33.0); Mean Corpuscular Volume 93.9 fL (80.0-98.0); Mean Platelet Volume 8.8 fL (9.4-12.3); Platelet Count 213 X10*3/uL (160-400); Red Blood Count 4.11 X10*6/uL (4.20-5.50); Red Cell Distribution Width 13.1 % (11.0-16.0); White Blood Count 5.1 X10*3/uL (4.8-10.8)
[2023-08-21 14:14] LABS: Anion Gap 16 (12-20); Blood Urea Nitrogen 12 mg/dL (9-16); Calcium 9.9 mg/dL (8.4-10.2); Carbon Dioxide 26 mmol/L (22-29); Chloride 105 mmol/L (96-108); Creatinine Clr Calc Pharmacy 90.3; Estimated Glomerular Filt Rate > 60; Glucose Random 96 mg/dL (60-115); Potassium 4.5 mmol/L (3.3-5.1); Sodium 142 mmol/L (135-145)
[2023-09-02] VITALS (18 sets, daily range): BP systolic 118–152; BP diastolic 44–66; PULSE 63–88; RESP 8–22; TEMP 35.9–37.1; O2SAT 97–100; BMI 21.7
--- OUTSIDE RECORDS SUMMARY | 2023-09-02 07:52 | XMS_ITS | Continuity of Care Document ---
Author Name Unknown Organization [facility] Address [address] [place] [address]- Care Team Providers Care Supervisor Reclamation Name Role Phone Gem SHIPMAN, Chari Jones Primary Care Physician Encounter [facility] R [id number] Date(s): 06/28/20 - 07/05/20 [facility] [address] [place] [address]- Attending Physician: Not on Staff, Attending MD Allergies, Adverse Reactions, Alerts Substance Reaction Severity Status Keflex Active Macrobid Active Medications cranberry oral tablet 0 Refills, Maintenance, 08/20/17 8:32:03 Start Date: 08/20/17 Status: Ordered Estrace Vaginal Cream 0.1 mg/g See Instructions, 1 Gram vaginally three times a week at bedtime.. for 90 days, # 84 Gm, 1 Refills,Maintenance, 09/03/19 14:52:00 EDT, [facility], Provider wants compound Estradiol; Compound makes a significant difference to p... Start Date: 09/03/19 Status: Ordered ibuprofen 800 mg oral tablet 800 mg, 1, tablet, By Mouth, Bed Time, Refills 0, Maintenance, 05/07/17 8:24:50 Start Date: 05/07/17 Status: Ordered levothyroxine 0.05 mg oral tablet 1 tablet = 50 mcg, By Mouth, Daily, 0 Refills, Maintenance, 09/10/15 10:53:12 Start Date: 09/10/15 Status: Ordered Multivitamin Daily, 0 Refills, Maintenance, 12/22/19 15:14:00 EDT Start Date: 12/22/19 Status: Ordered NuLYTELY with Flavor Packs oral powder for reconstitution 4,000 mL, By Mouth, Once, Drink 8 oz every 10 minutes until finished., # 4,000 mL, 0 Refills, Soft Stop, 06/09/20 16:09:00 [id number], Partial fill upon patient request if the prescription is for a schedule II opioid drug., 4,000... Start Date: 06/09/20 Status: Ordered Vitamin D3 By Mouth, Daily, 0 Refills, Maintenance, 12/22/19 15:14:00 EDT Start Date: 12/22/19 Status: Ordered Problem List Condition Effective Dates Status Health Status Inform ant Asthma(Confirmed) Active Atrophic vaginitis(Confirmed) Active Back pain, low back(Confirmed) Active Cyst of breast, diffuse fibrocystic(Confirmed) Active History of diverticulitis - required abscess drainage(Confirmed) Active Hypothyroid(Confirmed) Active Varicella(Confirmed) Active Social History Social History Type Response Smoking Status Former smoker; Tobac co user in household: No; Other: Quit at 23 yrs old; social smoker; entered on: 09/11/13 Sex
--- OUTSIDE RECORDS SUMMARY | 2023-09-02 07:52 | XMS_ITS | Continuity of Care Document ---
Author Name Unknown Organization [facility] Address [address] [place] [address]- Care Team Providers Care Account Liaison Name Role Phone Gem SHIPMAN, Chari Jones Primary Care Physician Encounter [facility] Date(s): 02/12/22 - 03/14/22 [facility] [address] [place] [address]- Attending Physician: Yessy Mendieta Admitting Physician: AdmYessy valle Referring Physician: AdmtrYessy Allergies, Adverse Reactions, Alerts Substance Reaction Severity Status Keflex Active Macrobid Active Immunizations Given and Recorded Vaccine Date Status Refusal Reason SARS-CoV-2 (COVID-19) mRNA-1273 vaccine 06/21/21 R ecorded SARS-CoV-2 (COVID-19) mRNA-1273 vaccine 08/29/20 R ecorded SARS-CoV-2 (COVID-19) mRNA-1273 vaccine 08/01/20 R ecorded influenza virus vaccine, inactivated 04/30/21 Fabian rded influenza virus vaccine, inactivated 03/04/19 Fabian rded influenza virus vaccine, inactivated 05/07/18 Fabian rded influenza virus vaccine, inactivated 02/06/17 Fabian rded influenza virus vaccine, inactivated 02/26/16 Fabian rded influenza virus vaccine, inactivated 02/21/14 Fabian rded zoster vaccine, inactivated 07/01/20 Recorded tetanus/diphtheria/pertussis, acel(Tdap) 08/21/15 Recorded Medications Estrace Vaginal Cream 0.1 mg/g See Instructions, 1 Gram vaginally three times a week at bedtime.. for 90 days, # 84 Gm, 1 Refills,Maintenance, 02/12/22 13:50:00 EDT, [id number], 168, cm, 02/12/22 10:54:00 EDT, Height, 61.5, kg, 02/12/22 10:54:00 EDT, Dry Weight Start Date: 02/12/22 Status: Ordered ibuprofen 800 mg oral tablet 800 mg, 1, tablet, By Mouth, Bed Time, Refills 0, Maintenance, 05/07/17 8:24:50 Start Date: 05/07/17 Status: Ordered levothyroxine 0.05 mg oral tablet 1 tablet = 50 mcg, By Mouth, Daily, 0 Refills, Maintenance, 09/10/15 10:53:12 Start Date: 09/10/15 Status: Ordered MiraLax = 17 Gm, By Mouth, Daily, 0 Refills, Maintenance, 02/12/22 10:55:00 EDT, Partial fill upon patient request if the prescription is for a schedule II opioid drug. Start Date: 02/12/22 Status: Ordered Multivitamin Daily, 0 Refills, Maintenance, 12/22/19 15:14:00 EDT Start Date: 12/22/19 Status: Ordered Vitamin D3 By Mouth, Daily, 0 Refills, Maintenance, 12/22/19 15:14:00 EDT Start Date: 12/22/19 Status: Ordered Problem List Condition Confirmation Course Effective Dates Status H ealth Status Informant Asthma Confirmed Active Atrophic vaginitis Confirmed Active Back pain, low back Confirmed Active Cyst of breast, diffuse fibrocystic Confirmed Active History of diverticulitis - required abscess drainage Confirmed Active Hypothyroid Confirmed Active Varicella Confirmed Active Social History Social History Type Response Smoking Status Former smoker; Tobac co user in household: No; Other: Quit at 23 yrs old; social smoker; entered on: 09/11/13 Sex Patient Care team information Personnel Name: Gem SHIPMAN , Chari Jones Address: Address: [address] [place] [address]
--- NOTE | 2023-09-02 07:53 | PHA.MEDREC ---
Pharmacy Consult ? Medication Reconciliation Pharmacy has completed the medication reconciliation. Reviewed med rec done by nursing
--- OUTSIDE RECORDS SUMMARY | 2023-09-02 07:53 | XMS_ITS | Continuity of Care Document ---
Author Name Unknown Organization [facility] Address [address] [place] [address]- Care Team Providers Care Machine Rough Rounder Name Role Phone Gem SHIPMAN, Chari Jones Primary Care Physician [facility] [id number] Date(s): 07/04/20 - 08/03/20 [facility] [address] [place] [address]- Attending Physician: Yessy Mendieta Admitting Physician: Admtr, Yessy Referring Physician: Admtr, Ar8 Allergies, Adverse Reactions, Alerts Substance Reaction Severity Status Keflex Active Macrobid Active Medications cranberry oral tablet 0 Refills, Maintenance, 08/20/17 8:32:03 Start Date: 08/20/17 Status: Ordered Estrace Vaginal Cream 0.1 mg/g See Instructions, 1 Gram vaginally three times a week at bedtime.. for 90 days, # 84 Gm, 1 Refills,Maintenance, 09/03/19 14:52:00 EDT, [facility], Provider wants compound Estradiol; Compound makes a [...] mL, 0 Refills, Soft Stop, 06/09/20 16:09:00 [id number], Partial fill upon patient request if the [...]
--- OUTSIDE RECORDS SUMMARY | 2023-09-02 07:53 | XMS_ITS | Continuity of Care Document ---
Author Name Unknown Organization [facility] Address [address] [place] [address]- Care Team Providers Care Behavioral Assistant Name Role Phone Dania GILMAN, Michelle Cabrales Primary Care Physician [phone] [facility] [id number] Date(s): 12/22/19 - 01/21/20 [facility] [address] [place] [address]- [facility] Attending Physician: Yessy Mendieta Admitting Physician: Admtr, [...] 1 Refills,Maintenance, 09/03/19 14:52:00 EDT, [facility], Provider wants compound Estradiol; Compound makes a [...]
--- OUTSIDE RECORDS SUMMARY | 2023-09-02 07:53 | XMS_ITS | Continuity of Care Document ---
Author Name Unknown Organization [facility] Address [address] [facility] [place] [address] [place] [address]- Care Team Providers Care Steel Welder Name Role Phone Gem SHIPMAN, Chari Jones Primary Care Physician Encounter 06/20/21 - 08/22/21 [facility] [address], [facility] [address] [place] [address]- Attending Physician: Chari Rabago MD Admitting Physician: Chair Rabago MD Referring Physician: Gem SHIPMAN , Chari Jones Allergies, Adverse Reactions, Alerts Substance Reaction Severity Status Keflex Active Macrobid Active Medications cranberry oral tablet 0 Refills, Maintenance, 08/20/17 8:32:03 Start Date: 08/20/17 Status: Ordered Estrace Vaginal Cream 0.1 mg/g See Instructions, 1 Gram vaginally three times a week at bedtime.. for 90 days PLEASE SCHEDULE ANNUAL EXAM FOR REFILLS, # 84 Gm, 0 Refills, Maintenance, 03/09/21 15:26:00 EDT, [facility], Provider wants compound Estradiol; Compound makes a... Start Date: 03/09/21 Status: Ordered ibuprofen 800 mg oral tablet [...] mL, 0 Refills, Soft Stop, 06/09/20 16:09:00 [facility] #[id number], Partial fill upon patient request if the [...]
--- OUTSIDE RECORDS SUMMARY | 2023-09-02 07:53 | XMS_ITS | Continuity of Care Document ---
Author Name Unknown Organization [facility] Address [address] [address]- Care Team Providers Care Wanigan Clerk Name Role Phone Gem SHIPMAN, Chari Jones Primary Care Physician [facility]): 04[facility]10[facility]22 - 05/10/22 [facility] [address] [address]- Allergies, Adverse Reactions, Alerts Substance Reaction Severity [...] bedtime.. for 90 days, # 84 Gm, 4 Refills,Maintenance, 04/11/22 16:03:00 EST, [facility]), 168, cm, 02/12/22 10:54:00 EDT, Height, 61.5, kg, 02/12/22 10:54:00 ED... Start Date: 04/11/22 Status: Ordered ibuprofen 800 mg oral tablet [...] on: 09/11/13 Sex Patient Care team information Care Team Personnel Name: Caleb Chan MD Position: [facility] GI MD Member Role: Lifetime Consulting Physician Address: Address: [address] [facility], [address] [facility] [place] [address]- [place] Name: Chari Rabago MD Position: Reference Physician Member Role: PCP Address: Address: [address] [place] [address]- [place] Name: Sue Morales MD Position: [facility] MANAGER FLOAT MD Member Role: Lifetime MANAGER FLOAT Physician Address: Address: [address] [facility] [place] [address]- [place] Care Team Related Persons Name: WILLY CROSS Address: home [address] [place] [address]
--- OUTSIDE RECORDS SUMMARY | 2023-09-02 07:53 | XMS_ITS | Continuity of Care Document ---
Author Name Unknown Organization [facility] Address [address] [place] [address]- Care Team Providers Care Master Lay Out Specialist Name Role Phone Gem SHIPMAN, Chari Jones Primary [id number] - 07/11/20 [facility] [address] [place] [address]- Attending Physician: Tiera Chavarria MD Allergies, Adverse Reactions, Alerts Substance Reaction [...] mL, 0 Refills, Soft Stop, 06/09/20 16:09:00 [id number], Partial fill upon patient request if the [...] abscess drainage(Confirmed) Active Hypothyroid(Confirmed) Active Varicella(Confirmed) Active Vital Signs Most recent to oldest [Reference Range]: 1 Height 167.0 cm (07/04/20 2:22 PM) Weight 64.4 kg (07/04/20 2:22 PM) Body Mass Index [18.5-24.99] 23.09 (07/04/20 2:22 PM) Blood Pressure [90-138/55-84 mm Hg] 130/ 68mm Hg (07/04/20 2:22 PM) Temperature [96.8-100.4 DegF] 97.4 DegF (07/04/20 2:22 PM) Blood pressure sites Arm, right (07/04/20 2:22 PM) Temperature Route Temporal (07/04/20 2:22 PM) Dry Weight 64.4 kg (07/04/20 2:22 PM) Weight Obtained Via Standing scale (07/04/20 2:22 PM) Dry Weight Obtained Via Standing scale (07/04/20 2:22 PM) Social History Social History Type Response Smoking Status Former smoker; Tobac co user in household: No; Other: Quit at 23 yrs old; social smoker; entered on: 09/11/13 Sex
--- OUTSIDE RECORDS SUMMARY | 2023-09-02 07:53 | XMS_ITS | Continuity of Care Document ---
Author Name Unknown Organization [facility] Address [address] [place] [address]- Care Team Providers Care Towboat Captain Name Role Phone Gem HSIPMAN, Chari Jones Primary Care Physician [facility] Date[facility]s): 02/12/22 - 02/19/22 [facility] [address] [place] [address]- Attending Physician: Tiera Chavarria MD Allergies, Adverse [...] 84 Gm, 1 Refills,Maintenance, 02/12/22 13:50:00 EDT, [id number], 168, cm, 02/12/22 10:54:00 EDT, Height, 61.5, [...] recent to oldest [Reference Range]: 1 Height 168 cm (02/12/22 10:54 AM) Weight 61.5 kg (02/12/22 10:54 AM) Body Mass Index [18.5-24.99] 21.79 (02/12/22 10:54 AM) Blood Pressure [90-138/55-84 mm Hg] 120/ 68mm Hg (02/12/22 10:54 AM) Blood pressure sites Arm, right (02/12/22 10:54 AM) Dry Weight 61.5 kg (02/12/22 10:54 AM) Weight Obtained Via Standing scale (02/12/22 10:54 AM) Dry Weight Obtained Via Standing scale (02/12/22 10:54 AM) Social History Social History Type Response Smoking Status Former smoker; Tobac co user in household: No; Other: Quit at 23 yrs old; social smoker; entered on: 09/11/13 Sex Care Team Personnel Name: Gem SHIPMAN , Chari Jones Address: [address] [place], [place] [address]
--- OUTSIDE RECORDS SUMMARY | 2023-09-02 07:53 | XMS_ITS | Continuity of Care Document ---
Author Name Unknown Organization [facility] Address [address] [place] [address]- Care Team Providers Care Working Second Hand Name Role Phone Gem SHIPMAN, Chari Jones Primary Care Physician En[facility] Date(s[place] 05/15/20 - 06/14/20 [facility] [address] [place], [place] [address] Allergies, Adverse Reactions, Alerts Substance Reaction Severity Status Keflex Active Macrobid Active Medications cranberry oral tablet 0 Refills, Maintenance, 08/20/17 8:32:03 Start Date: 08/20/17 Status: Ordered Estrace Vaginal Cream 0.1 mg/g See Instructions, 1 Gram vaginally three times a week at bedtime.. for 90 days, # 84 Gm, 1 Refills,Maintenance, 09/03/19 14:52:00 EDT, [facility], Provider wants compound Estradiol; Compound makes a [...] mL, 0 Refills, Soft Stop, 06/09/20 16:09:00 [facility], [facility] #[id number], Partial fill upon patient request if the [...]
--- OUTSIDE RECORDS SUMMARY | 2023-09-02 07:53 | XMS_ITS | Continuity of Care Document ---
Author Name Unknown Organization [facility] Address [address] [facility], [address] [place] [address]- Care Team Providers Care Nursing Department Chairperson Name Role Phone Gem SHIPMAN, Chari Jones Primary Care Physician Encounter 08/27/21 - 09/03/21 [facility] [address], [address] [place] [address]- Attending Physician: Gem SHIPMAN , Chari Jones Admitting Physician: Chari Rabago MD Referring Physician: Chari Rabago MD Allergies, Adverse Reactions, Alerts Substance Reaction Severity Status Keflex Active Macrobid Active Medications cranberry oral tablet 0 Refills, Maintenance, 08/20/17 8:32:03 Start Date: 08/20/17 Status: Ordered Estrace Vaginal Cream 0.1 mg/g See Instructions, 1 Gram vaginally three times a week at bedtime.. for 90 days PLEASE SCHEDULE ANNUAL EXAM FOR REFILLS, # 84 Gm, 0 Refills, Maintenance, 08/23/21 16:35:00 EDT, [facility], Provider wants compound Estradiol; Compound makes a... Start Date: 08/23/21 Status: Ordered ibuprofen 800 mg oral tablet [...] mL, 0 Refills, Soft Stop, 06/09/20 16:09:00 [facility], [facility] #[id number], Partial fill upon patient request if the [...]
--- OUTSIDE RECORDS SUMMARY | 2023-09-02 07:53 | XMS_ITS | Continuity of Care Document ---
Author Name Unknown Organization [facility] Address [address] [place] [address]- Care Team Providers Care Energy Control Officer Name Role Phone Gem SHIPMAN, Chari Jones Primary Care Physician [facility] Date[facility]s): 09/17/22 - 10/17/22 [facility] [address] [place] [address]- Allergies, Adverse Reactions, Alerts Substance Reaction Severity [...] Refills,Maintenance, 04/11/22 16:03:00 EST, [facility]), 168, cm, 02/12/22 10:54:00 EDT, [...] Team Personnel Name: Caleb Chan MD Position: [facility] GI MD Member Role: Lifetime Consulting Physician Address: Address: [address] [facility], [address] [facility] [place] [address]- [place] Name: Chari Rabago MD Position: Reference Physician Member Role: PCP Address: Address: [address] [place] [address]- [place] Name: Sue Morales MD Position: [facility] TENTER FEEDER MD Member Role: Lifetime TENTER FEEDER Physician Address: Address: [address] [facility] [place] [address]- [place] Care Team Related Persons Name: WILLY CROSS Address: home [address] [place] [address]
--- OUTSIDE RECORDS SUMMARY | 2023-09-02 07:53 | XMS_ITS | Continuity of Care Document ---
Author Name Unknown Organization [facility] Address [address] [place] [address]- Care Team Providers Care Wafer Production Lead Worker Name Role Phone Gem SHIPMAN, Chari Jones Primary Care Physician Encounter [facility] Date(s): 06/09/20 - 07/09/20 [facility] [address] [place] [address] Attending Physician: Yessy Mendieta Admitting Physician: AdmtrYessy Referring Physician: Admtr, ArLupe Allergies, Adverse Reactions, Alerts Substance Reaction Severity Status Keflex Active Macrobid Active Medications cranberry oral tablet 0 Refills, Maintenance, 08/20/17 8:32:03 Start Date: 08/20/17 Status: Ordered Estrace Vaginal Cream 0.1 mg/g See Instructions, 1 Gram vaginally three times a week at bedtime.. for 90 days, # 84 Gm, 1 Refills,Maintenance, 09/03/19 14:52:00 EDT, [facility], Provider wants compound Estradiol; Compound makes a [...] mL, 0 Refills, Soft Stop, 06/09/20 16:09:00 [facility] #[id number], Partial fill upon patient request if the [...]
--- OUTSIDE RECORDS SUMMARY | 2023-09-02 07:53 | XMS_ITS | Continuity of Care Document ---
Author Name Unknown Organization [facility] Address [address] [place] [address]- Care Team Providers Care Deckhand Clam Dredge Name Role Phone Dania GILMAN, Michelle Cabrales Primary [id number]22[facility] - 12/29/19 [facility] [address] [place] [address]- [facility] Attending Physician: Sue Morales MD Allergies, Adverse Reactions, Alerts Substance Reaction Severity Status Keflex Active Macrobid Active Medications cranberry oral tablet 0 Refills, Maintenance, 08/20/17 8:32:03 Start Date: 08/20/17 Status: Ordered Estrace Vaginal Cream 0.1 mg/g See Instructions, 1 Gram vaginally three times a week at bedtime.. for 90 days, # 84 Gm, 1 Refills,Maintenance, 09/03/19 14:52:00 EDT, [facility], Provider wants compound Estradiol; Compound makes a [...] oldest [Reference Range]: 1 Height 167.0 cm (12/22/19 3:13 PM) Weight 61.3 kg (12/22/19 3:13 PM) Body Mass Index [18.5-24.99] 21.98 (12/22/19 3:13 PM) Blood Pressure [90-138/55-84 mm Hg] 118/ 60mm Hg (12/22/19 3:13 PM) Temperature [96.8-100.4 DegF] 97.1 DegF (12/22/19 3:13 PM) Blood pressure sites Arm, right (12/22/19 3:13 PM) Temperature Route Temporal (12/22/19 3:13 PM) Dry Weight 61.3 kg (12/22/19 3:13 PM) Weight Obtained Via Standing scale (12/22/19 3:13 PM) Dry Weight Obtained Via Standing scale (12/22/19 3:13 PM) Social History Social History Type Response Smoking Status Former smoker; Tobac co user in household: No; Other: Quit at 23 yrs old; social smoker; entered on: 09/11/13 Sex
--- OUTSIDE RECORDS SUMMARY | 2023-09-02 07:53 | XMS_ITS | Continuity of Care Document ---
Author Name Unknown Organization [facility] Address [address] [place] [address]- Care Team Providers Care Ecosystem Ecology Professor Name Role Phone Gem SHIPMAN, Chari Jones Primary Care Physician [facility] Date(s): 04/22/23 - 04/29/23 [facility] [address] [place] [address]- Attending Physician: Tiera Chavarria MD Allergies, Adverse [...] 90 days, # 84 Gm, 4 Refills,Maintenance, 04/23/23 16:16:00 EST, [facility] #[id number], 168, cm, 04/22/23 8:51:00 EST, Height, 61.5, kg, 02/12/22 10:54:00 EDT, Dry Weight Start Date: 04/23/23 Status: Ordered ibuprofen 800 mg oral tablet 800 mg, 1, tablet, By Mouth, Bed Time, Refills 0, Maintenance, 05/07/17 8:24:50 Start Date: 05/07/17 Status: Ordered levothyroxine 75 mcg (0.075 mg) oral tablet 90 each, 0 Refill(s), TAKE 1 TABLET BY MOUTH EVERY DAY, 0 Refills, 04/22/23 8:50:00 EST, Partial fill upon patient request if the prescription is for a schedule II opioid drug. Start Date: 04/22/23 Status: Ordered MiraLax = 17 Gm, By [...] Active Hypothyroid Confirmed Active Varicella Confirmed Active Vital Signs Most recent to oldest [Reference Range]: 1 Height 168 cm (04/22/23 8:51 AM) Weight 60.6 kg (04/22/23 8:51 AM) Body Mass Index [18.5-24.99 kg/m2] 21.47 kg/m2 (04/22/23 8:51 AM) Blood Pressure [90-138/55-84 mm Hg] 134/ 74mm Hg (04/22/23 8:51 AM) Blood pressure sites Arm, right (04/22/23 8:51 AM) Weight Obtained Via Standing scale (04/22/23 8:51 AM) Social History Social History Type Response Smoking Status Former smoker; Tobac co user in household: No; Other: Quit at 23 yrs old; social smoker; entered on: 09/11/13 Sex Patient Care team information Care Team Personnel Name: Caleb Chan MD Position: [facility] Physician - Gastroenterology Member Role: Lifetime Consulting Physician Address: Address: [address] [facility], [address] [facility] [place] [address]- Name: Gem SHIPMAN , Chari Jones Position: Reference Physician Member Role: PCP Address: Address: [address] [place] [address]- Name: Carmen SHIPMAN, Sue Davison Position: [facility] SENIOR PRINCIPAL PROCESS ENGINEER MD Member Role: Lifetime SENIOR PRINCIPAL PROCESS ENGINEER Physician Address: Address: [address] [facility] Women's Health [place] [address]- Care Team Related Persons Name: WILLY CROSS Address: home [address] [place] [address]
--- OUTSIDE RECORDS SUMMARY | 2023-09-02 07:53 | XMS_ITS | Continuity of Care Document ---
Author Name Unknown Organization [facility] Address [address] [place] [address]- Care Team Providers Care Head Teller Name Role Phone Gem SHIPMAN, Chari Jones Primary Care Physician [facility] Date(s): 06/20/22 - 07/20/22 [facility] [address] [place] [address]- Allergies, Adverse Reactions, Alerts Substance Reaction Severity [...] Refills,Maintenance, 04/11/22 16:03:00 EST, [facility]), 168, cm, 02/12/22 10:54:00 EDT, [...] Team Personnel Name: Caleb Chan MD Position: [facility] GI MD Member Role: Lifetime Consulting Physician Address: Address: [address] [facility], [address] [facility] [place] [address]- Name: Chari Rabago MD Position: Reference Physician Member Role: PCP Address: Address: [address] [place] [address]- [place] Name: Sue Morales MD Position: [facility] INSTRUCTIONAL TECHNOLOGY SPECIALIST MD Member Role: Lifetime INSTRUCTIONAL TECHNOLOGY SPECIALIST Physician Address: Address: [address] [facility] Women's Health [place] [address]- Care Team Related Persons Name: WILLY CROSS Address: home [address] [place] [address]
--- OUTSIDE RECORDS SUMMARY | 2023-09-02 07:53 | XMS_ITS | Continuity of Care Document ---
Author Name Unknown Organization [facility] ter Address [address] [place] [address]- Care Team Providers Care Counting Machine Operator Name Role Phone Gem SHIPMAN, Chari Jones Primary Care Physician Encounter [facility] Date(s): 10/12/20 - 10/12/[address] [address]- Discharge Disposition: A-D/C Home Attending Physician: Caleb Chan MD Admitting Physician: Caleb Chan MD Referring Physician: Caleb Chan MD Allergies, Adverse Reactions, Alerts Substance Reaction Severity Status Keflex Active Macrobid Active Medications cranberry oral tablet 0 Refills, Maintenance, 08/20/17 8:32:03 Start Date: 08/20/17 Status: Ordered Estrace Vaginal Cream 0.1 mg/g See Instructions, 1 Gram vaginally three times a week at bedtime.. for 90 days, # 84 Gm, 1 Refills,Maintenance, 09/03/19 14:52:00 EDT, [facility], Provider wants compound Estradiol; Compound makes a [...] mL, 0 Refills, Soft Stop, 06/09/20 16:09:00 [id number], Partial fill upon patient request if the [...] abscess drainage(Confirmed) Active Hypothyroid(Confirmed) Active Varicella(Confirmed) Active Procedures Procedure Date Related Diagnosis Body Site Status Colonoscopy 10/12/20 Completed Vital Signs Most recent to oldest [Reference Range]: 1 2 3 Height 168 cm (10/12/20 8:00 AM) Oxygen Saturation [94-100 %] 100 % (10/12/20 9:22 AM) 99 % (10/12/20 9:16 AM) 99 % (10/12/20 8:00 AM) Pulse Rate [55-90 bpm] 68 bpm (10/12/20 8:00 AM) Blood Pressure [90-138/55-84 mm Hg] 114/58mm Hg (10/12/20 9:22 AM) 117/50mm Hg (10/12/20 9:16 AM) 121/64mm Hg (10/12/20 8:00 AM) Respiratory Rate [16-30 br/min] 18 br/min (10/12/20 9:22 AM) 18 br/min (10/12/20 9:16 AM) 16 br/min (10/12/20 8:00 AM) Temperature [96.8-100.4 DegF] 97.8 DegF (10/12/20 8:00 AM) Mode of Delivery (Oxygen) Room air (10/12/20 9:22 AM) Room air (10/12/20 9:16 AM) Room air (10/12/20 8:00 AM) Blood pressure sites Arm, left (10/12/20 9:22 AM) Arm, left (10/12/20 9:16 AM) Arm, left (10/12/20 8:00 AM) Temperature Route Temporal (10/12/20 8:00 AM) Dry Weight 60 kg (10/12/20 8:00 AM) Dry Weight Obtained Via Patient/family s tated (10/12/20 8:00 AM) Social History Social History Type Response Smoking Status Former smoker; Tobac co user in household: No; Other: Quit at 23 yrs old; social smoker; entered on: 09/11/13 Sex
--- OUTSIDE RECORDS SUMMARY | 2023-09-02 07:53 | XMS_ITS | Continuity of Care Document ---
Author Name Unknown Organization [facility] Address [address] [facility] [place] [address] [place] [address]- Care Team Providers Care Furnace Repair Mechanic Name Role Phone Gem SHIPMAN, Chari Jones Primary Care Physician Encounter 03/28/20 - 04/04/20 [facility] [address], [facility] [address] [place] [address]- [phone] Attending Physician: Chari Rabago MD Admitting Physician: Chari Rabago MD Referring Physician: Gem SHIPMAN , [...] 1 Refills,Maintenance, 09/03/19 14:52:00 EDT, [facility], Provider wants compound Estradiol; Compound makes a [...]
--- OUTSIDE RECORDS SUMMARY | 2023-09-02 07:53 | XMS_ITS | Continuity of Care Document ---
Author Name Unknown Organization [facility] Address [address] [place] [address]- Care Team Providers Care Bunch Breaker Name Role Phone Gem SHIPMAN, Chari Jones Primary Care Physician Encounter [facility] Date(s): 04/22/23 - 05/22/23 [facility] [address] [place] [address]- Attending Physician: Yessy Mendieta Admitting Physician: AdmYessy valle Referring Physician: Admtr ArLupe Allergies, Adverse Reactions, Alerts Substance Reaction [...] # 84 Gm, 4 Refills,Maintenance, 04/23/23 16:16:00 [facility], [facility] #[id number], 168, cm, 04/22/23 8:51:00 EST, Height, 61.5, [...] old; social smoker; entered on: 09/11/13 Sex Laboratory * Event Display: Non BH Lab Results Authored Date: * Event Display: Non BH Lab Results Authored Date: * Event Display: Non BH Lab Results Authored Date: Radiology * Event Display: Ultrasound Breast, Non-BH Authored Date: * Event Display: Radiology Result Scanned Authored Date: * Event Display: Radiology Result Scanned Authored Date: * Event Display: Radiology Result Scanned Authored Date: Patient Care team information Care Team Personnel Name: Caleb Chan MD Position: [facility] Physician - Gastroenterology Member Role: Lifetime Consulting Physician Address: Address: [address] [facility], [address] [facility] [place] [address]- [place] Name: Gem SHIPMAN , Chari Jones Position: Reference Physician Member Role: PCP Address: Address: [address] [place] [address]- [place] Name: Carmen SHIPMAN, Sue Davison Position: [facility] LAP CUTTER TRUER OPERATOR MD Member Role: Lifetime LAP CUTTER TRUER OPERATOR Physician Address: Address: [address] [place] [address]- Care Team Related Persons Name: WILLY CROSS Address: home [address] [place] [address]
--- OUTSIDE RECORDS SUMMARY | 2023-09-02 07:53 | XMS_ITS | Continuity of Care Document ---
Author Name Unknown Organization [facility] Address [address] [place] [address]- Care Team Providers Care Wood Cabinet Finisher Name Role Phone Gem SHIPMAN, Chari Jones Primary Care Physician Encounter [facility] Date(s): 09/28/21 - 10/28/21 [facility] [address] [place], [place] [address] Allergies, Adverse Reactions, Alerts Substance Reaction Severity Status Keflex Active Macrobid Active Medications cranberry oral tablet 0 Refills, Maintenance, 08/20/17 8:32:03 Start Date: 08/20/17 Status: Ordered Estrace Vaginal Cream 0.1 mg/g See Instructions, 1 Gram vaginally three times a week at bedtime.. for 90 days PLEASE SCHEDULE ANNUAL EXAM FOR REFILLS, # 84 Gm, 0 Refills, Maintenance, 09/04/21 10:36:00 EDT, [facility], 168, cm, 10/12/20 8:00:00 EDT, Height, 60, kg, 09/30... Start Date: 09/04/21 Status: Ordered ibuprofen 800 mg oral tablet [...] [facility], [facility] #[id number], Partial fill upon patient request if the [...]
--- OUTSIDE RECORDS SUMMARY | 2023-09-02 07:53 | XMS_ITS | Continuity of Care Document ---
Author Name Unknown Organization [facility] Address [address] [place] [address]- Care Team Providers Care White Sourer Name Role Phone Gem SHIPMAN, Chari Jones Primary Care Physician Encounter [facility] Date(s): 06/28/20 - 07/28/20 [facility] [address] [place], [place] [address] Allergies, Adverse Reactions, Alerts Substance [...] mL, 0 Refills, Soft Stop, 06/09/20 16:09:00 [facility] #[id number], Partial fill upon patient request if the [...]
[2023-09-02] MEDS: Lactated Ringers 1,000 ML 100 ML IVCONT ×2 (08:19→21:21)
--- NOTE | 2023-09-02 09:10 | P.CONAN_ITS ---
Documented by User: Wanda Guzman NP 08/29/23 14:21 HPI - Anesthesia Eval Consult details Narrative: 58yo F for Sigmoid Resection Laparoscopic Hand Assist, possible open, possible stoma, 09/02/23 Long hx divertic. [place]23 [place] [facility] [place] other recent No CP/SOB with physical job and walking GERD. Episodic use of ppi. No symptoms. [facility] Active Problems Active Problems: All Active Problems (Updated 08/21/23 @ 12:23 by Brittanie Santo RN) SALLY positive (Acute) Annual visit for general adult medical examination with abnormal findings (A cute) Tear of left supraspinatus tendon (Acute) Calcific tendinitis of left shoulder (Acute) Sigmoid diverticulitis (Acute) History of diverticulitis of colon (Acute) Irritable bowel syndrome with constipation and diarrhea (Acute) Menopause (Acute) Chronic leukopenia (Acute) SALLY positive (Acute) H/O colonoscopy (Acute) Narrow angle glaucoma suspect (Acute) Recurrent cold sores (Acute) Acquired hypothyroidism (Acute) Past Medical History Medical History C. difficile colitis Back pain GERD (gastroesophageal reflux disease) Tear of left supraspinatus tendon Calcific tendinitis of left shoulder Sigmoid diverticulitis History of diverticulitis of colon Irritable bowel syndrome with constipation and diarrhea Menopause Annual visit for general adult medical examination with abnormal findings Chronic leukopenia SALLY positive Cyst of right breast Narrow angle glaucoma suspect Recurrent cold sores Acquired hypothyroidism Family History Family History Father Smoker CVD (cardiovascular disease) HTN (hypertension) Mother HTN (hypertension) CVD (cardiovascular disease) Pancreatic cancer Mental health disorder Maternal Grandfather Depression Cervical cancer Maternal Grandmother Alcoholism Paternal Grandfather Alcoholism Paternal Grandmother No problems noted. Sister Crohn's disease Family history of problems with anesthesia: No Surgical History Surgical History Hx of eye surgery Hx of tonsillectomy H/O colonoscopy Diverticulitis History of back surgery History of Problems with Anesthesia: No Social History Social History Household Members: Spouse Housing: House Are you a primary foster care therapist to a significant other at home: No Do you presently have visiting nurse or other home services: No Alcohol intake: current Alcohol intake frequency: a few times a month Alcohol type: wine Patient Tobacco Use Status: Never used Tobacco e-Cigarette/Vaping Use: Never Used Use of substances other than those prescribed or required for medical reasons: No Have you been hit, kicked, punched, or otherwise hurt by someone within the past year? 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 [employer] Cognitive needs: No Hearing needs: No Vision needs: Yes Meds Allergies Allergy/AdvReac Type Severity Reaction Status Date / Time Sulfa (Sulfonamide Allergy Intermediate Rash Verified 09/02/23 08:24 Antibiotics) cephalexin [From KEFLEX] Allergy Unknown HIVES Verified 09/02/23 08:24 methylprednisolone [Medrol] AdvReac Unknown grandiosity Verified 09/02/23 08:24 prednisone AdvReac Unknown grandiosity Verified 09/02/23 08:24 Home Medications Medication Instructions Recorded Confirmed Last Taken Type estradiol 0.01% (0.1 mg/gram) 1 appful vaginal 3XW 02/10/23 08/21/23 07/18/23 History vaginal cream levothyroxine 75 mcg tablet 75 mcg PO DAILY@0600 02/10/23 09/02/23 09/02/23 History cholecalciferol (vitamin D3) 25 25 mcg PO DAILY 02/27/23 09/02/23 09/01/23 History mcg (1,000 unit) capsule omeprazole magnesium 20 mg 20 mg PO DAILY PRN Acid Reflux 08/21/23 09/02/23 09/02/23 History tablet,delayed release (Prilosec OTC) polyethylene glycol 3350 17 gram 17 g PO DAILY 08/21/23 08/21/23 Unknown History oral powder packet (Miralax) Exam Height,Weight and Vital Signs: Height 5 ft 6 in Weight 62.142 kg Last Vital Signs Pulse 68 08/21/23 12:46 Resp 16 08/21/23 12:46 BP 127/57 L 08/21/23 12:46 Pulse Ox 98 08/21/23 12:46 O2 Del Method Room Air 08/21/23 12:46 Pertinent Lab Results Pertinent Lab Results: Lab Results 08/21/23 08/21/23 Range/Units 13:35 13:41 WBC 5.1 (4.8-10.8) X10*3/uL RBC 4.11 L (4.20-5.50) X10*6/uL Hgb 13.0 (12.0-16.0) g/dl Hct 38.6 (37.0-47.0) % MCV 93.9 (80.0-98.0) fL MCH 31.6 (27.0-33.0) pg MCHC 33.7 (31.0-35.0) g/dl RDW 13.1 (11.0-16.0) % Plt Count 213 (160-400) X10*3/uL MPV 8.8 L (9.4-12.3) fL Absolute Nucleated RBC 0.000 (0.0-0.012) X10*3/uL Nucleated RBC % (auto) 0.0 (0.0-0.2) /100WBC Sodium 142 (135-145) mmol/L Potassium 4.5 D (3.3-5.1) mmol/L Chloride 105 (96-108) mmol/L Carbon Dioxide 26 (22-29) mmol/L Anion Gap 16 (12-20) BUN 12 (9-16) mg/dL Creatinine 0.62 (0.5-1.4) mg/dL Estim Creat Clear Calc 90.3 Estimated GFR > 60 Random Glucose 96 (60-115) mg/dL Calcium 9.9 (8.4-10.2) mg/dL Blood Type A Positive Antibody Screen NEGATIVE Narrative Narrative: EKG 08/2023 Vent. Rate : 059 BPM Atrial Rate : 059 BPM P-R Int : 158 ms QRS Dur : 092 ms QT Int : 442 ms P-R-T Axes : 000 -20 025 degrees QTc Int : 437 ms Sinus bradycardia Incomplete right bundle branch block Borderline ECG When compared with ECG of 28-MAY-2019 07:59, No significant change was found Airway Mallampati Class: I TM Dist: >3cm Neck ROM: Full Loose/Missing/Broken Teeth: No Heart: RRR Lungs: CTAB Assessment and Plan Assessment Anesthesia Assessment: Anesthesia Plan Discussed and PAT Visit Final Anesthetic Review Family History of Problems with Anesthesia: No History of Problems with Anesthesia: No Documented by User: Marisol Prabhakar DO 09/02/23 09:19 [facility] Past Medical History Medical History C. difficile colitis Back pain GERD (gastroesophageal reflux disease) Tear of left supraspinatus tendon Calcific tendinitis of left shoulder Sigmoid diverticulitis History of diverticulitis of colon Irritable bowel syndrome with constipation and diarrhea Menopause Annual visit for general adult medical examination with abnormal findings Chronic leukopenia SALLY positive Cyst of right breast Narrow angle glaucoma suspect Recurrent cold sores Acquired hypothyroidism Family History Family History Father Smoker CVD (cardiovascular disease) HTN (hypertension) Mother HTN (hypertension) CVD (cardiovascular disease) Pancreatic cancer Mental health disorder Maternal Grandfather Depression Cervical cancer Maternal Grandmother Alcoholism Paternal Grandfather Alcoholism Paternal Grandmother No problems noted. Sister Crohn's disease Family history of problems with anesthesia: No Surgical History Surgical History Hx of eye surgery Hx of tonsillectomy H/O colonoscopy Diverticulitis History of back surgery History of Problems with Anesthesia: No Social History Social History Household Members: Spouse Housing: House Are you a primary foster care therapist to a significant other at home: No Do you presently have visiting nurse or other home services: No Alcohol intake: current Alcohol intake frequency: a few times a month Alcohol type: wine Patient Tobacco Use Status: Never used Tobacco e-Cigarette/Vaping Use: Never Used Use of substances other than those prescribed or required for medical reasons: No Have you been hit, kicked, punched, or otherwise hurt by someone within the past year? 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 [employer] Cognitive needs: No Hearing needs: No Vision needs: Yes Meds Allergies Allergy/AdvReac Type Severity Reaction Status Date / Time Sulfa (Sulfonamide Allergy Intermediate Rash Verified 09/02/23 08:24 Antibiotics) cephalexin [From KEFLEX] Allergy Unknown HIVES Verified 09/02/23 08:24 methylprednisolone [Medrol] AdvReac Unknown grandiosity Verified 09/02/23 08:24 prednisone AdvReac Unknown grandiosity Verified 09/02/23 08:24 Home Medications Medication Instructions Recorded Confirmed Last Taken Type estradiol 0.01% (0.1 mg/gram) 1 appful vaginal 3XW 02/10/23 08/21/23 07/18/23 History vaginal cream levothyroxine 75 mcg tablet 75 mcg PO DAILY@0600 02/10/23 09/02/23 09/02/23 History cholecalciferol (vitamin D3) 25 25 mcg PO DAILY 02/27/23 09/02/23 09/01/23 History mcg (1,000 unit) capsule omeprazole magnesium 20 mg 20 mg PO DAILY PRN Acid Reflux 08/21/23 09/02/23 09/02/23 History tablet,delayed release (Prilosec OTC) polyethylene glycol 3350 17 gram 17 g PO DAILY 08/21/23 08/21/23 Unknown History oral powder packet (Miralax) Exam Exam Date and Time: September 02, 2023 0910 Height,Weight and Vital Signs: Height 5 ft 6 in Weight 62.142 kg Last Vital Signs Pulse 68 08/21/23 12:46 Resp 16 08/21/23 12:46 BP 127/57 L 08/21/23 12:46 Pulse Ox 98 08/21/23 12:46 O2 Del Method Room Air 08/21/23 12:46 Height 5 ft 6 in Weight 60.895 kg Vital Signs Pulse Rate 68 08/21/23 12:46 Respiratory Rate 16 08/21/23 12:46 Blood Pressure 127/57 L 08/21/23 12:46 Pulse Oximetry 98 08/21/23 12:46 Oxygen Delivery Method Room Air 08/21/23 12:46 Temperature 96.7 F L 09/02/23 08:19 Pulse Rate 69 09/02/23 08:19 Respiratory Rate 16 09/02/23 08:19 Blood Pressure 135/57 L 09/02/23 08:19 Pulse Oximetry 99 09/02/23 08:19 Oxygen Delivery Method Room Air 09/02/23 08:19 Airway Mallampati Class: I TM Dist: >3cm Neck ROM: Full Loose/Missing/Broken Teeth: No (patient denies any loose or broken teeth) Heart: S1S2 Assessment and Plan Assessment Anesthesia Assessment: Anesthesia Plan Discussed and Chart Reviewed Final Anesthetic Review Family History of Problems with Anesthesia: No History of Problems with Anesthesia: No NPO: Yes ASA Class: II Final Preanesthetic Review: No Changes in Pt Med Stat, Meds/Allgs Chart Reviewed, Consent Obtained/Reviewed and Anes Risks/Benef Reviewed Patient Risk: Low Procedure Risk: Low Anesthetic Plan Anesthetic Plan: GA and Agree w/ Assess. and Plan Disposition: Standard PACU
--- NOTE | 2023-09-02 09:16 | MHC.SHP ---
Pre-Procedural Eval Section A - 24 Hr Update-Section A only Date of Service: 09/02/23 Section B - Complete if H&P > 30 days Chief Complaint: recurrent diverticulitis Details of Present Illness: has had recurrent diverticulitis of the sigmoid colon Relevant Family History (Specify if Yes): No Relevant Social History: None Present Medications: see Short Stay Collaborative assessment Medical History: Significant History (Chronic leukopenia, SALLY positive, hypothyroidism) Allergies: Allergies Allergy/AdvReac Type Severity Reaction Status Date / Time Sulfa (Sulfonamide Allergy Intermediate Rash Verified 09/02/23 08:24 Antibiotics) cephalexin [From KEFLEX] Allergy Unknown HIVES Verified 09/02/23 08:24 methylprednisolone [Medrol] AdvReac Unknown grandiosity Verified 09/02/23 08:24 prednisone AdvReac Unknown grandiosity Verified 09/02/23 08:24 Review of Systems Sugical H&P ROS: Negative: Constitution, Cardiovascular, Respiratory, Neurological, Psychiatric, Hem-Onc, Allergic/Immunologic, Gastrointestinal, Genitourinary, Musculoskeletal, Integumentary, Endocrine and Eyes/Ears/Nose/Throat Exam Surgical H&P Exam: Normal: HEENT, Normal: Heart, Normal: Lungs, Normal: Extremities, Normal: Abdomen, Normal: Skin and Normal: Neurological Plan Diagnosis/Plan: Unchanged I have reviewed the history and physical and performed a pertinent physical examination on my patient. No changes have occurred unless specified. Time Spent With Patient Time: Total time managing care of this patient today ____ minutes.
[2023-09-02] MEDS: cefoTEtan disodium 2 GM in 0.9 % Sodium Chloride 50 ML IV (11:17)
[2023-09-02] MEDS: Acetaminophen 1,000 MG/100 ML PIGGYBACK 400 MG IV ×2 (11:55→17:57)
--- NOTE | 2023-09-02 13:33 | P.OP_ITS ---
Operative Note Operative Note Date of Service: 09/02/23 Narrative: Preop diagnosis: Recurrent sigmoid diverticulitis Postop diagnosis: The same Procedure: Hand assisted laparoscopic sigmoid resection with end-to-end anastomosis, extensive lysis of adhesions, mobilization of the splenic flexure, intraop flexible sigmoidoscopy Surgeon: Lucian Sun MD assistant family teacher: ALIE White The patient is a 58 year old female with recurrent diverticulitis of the sigmoid colon. In view of this recurrent episodes for many years, she wanted to proceed with sigmoid resection. She understood the planned technique of the procedure as well as the risks, benefits, and alternatives She was brought to the operating room. She was placed in modified lithotomy position under general anesthesia via endotracheal tube. Malone catheter was inserted. The abdomen and the perineum were prepped and draped in the usual sterile fashion. A surgical time-out was done. The patient received Cefotan 2 g IV preoperatively I made a short longitudinal incision in the lower midline using a blade 15. This was carried down with electrocautery through the full-thickness of the skin subcutaneous fat down to the fascia. The fascia was incised. The peritoneum wa s entered. We extended the fascial incision to optimize the length of the skin incision. The Albaro wound retractor was position. The GelPort was attached to this. Insufflation to pressure of 15 mm mercury was done through a port GelPort. A 10 mm 5/12 degree laparoscope was used and with laparoscopic visualization, I proceeded to insert a 5/12 mm port in the epigastric area on the midline through a small stab incision. The laparoscope was moved to this new epigastric port. With laparoscopic visualization I proceeded to start a 5/12 mm port in the right lower quadrant. The patient was placed in a steep head down and right side down position. My hand was position through the port. I proceeded to reflect the viscera away from the pelvis. I was able to expose the sigmoid and the rectum. I followed the sigmoid and there was note of severe inflammatory changes with dense adhesions in the mid sigmoid towards the pelvic sidewall. I followed the sigmoid all the way to the left colon. I had to mobilize the left colon by opening the white line of Toldt with the LigaSure. This was carried down inferiorly, following the left colon and sigmoid. There was note of very dense adhesions to the mid sigmoid the pelvic sidewall with chronic inflammatory changes. I had to do a lot of careful dissection with the LigaSure to separate the entire length the sigmoid. Eventually, I was able to free up the entire sigmoid. I opened up the peritoneum on the right side rectum and mobilize the rectosigmoid by dividing this peritoneum. This allowed us good length and mobilization of the proximal rectum. I proceeded to do the same procedure on the left side of the rectosigmoid. I followed this incision on the peritoneum more proximally towards the entire length of the sigmoid. By doing so was able to then carefully define the disease segment of the sigmoid. I chose my point of transection on an area proximal to this chronically indurated sigmoid. A mesenteric window was created. I used the Endo-ABA 60 mm stapler to divide this. I chose my point of transection in rectosigmoid. I created a mesenteric window. I divided this with an Endo-ABA 60 stapler as well. I then proceeded to divide the attached mesentery using the LigaSure and completely resected this long segment of sigmoid. This was retrieved through the midline incision. I pulled up the proximal sigmoid stump. I excised some of the excess fat surrounding the staple line. I then used the purse-stringe device. I created my pursestring and excised the staple line. I dilated the lumen using the siz ers to 28 mm without difficulty. We therefore used the 28 mm EEA circular stapler device. A positioed the anvil into the lumen and tighten the pursestring. I brought this small stump back into the peritoneal cavity. The 1st assistant gm of content & delivery then used the sizers through the anal orifice into the rectosigmoid stump. The EEA 28 mm stapler was then inserted in the same fashion all the way to the end of the stump. This was clearly seen laparoscopically as well. We targeted the area of the stump anterior to the staple line. The spike was then activated. We attached the anvil into the spike and locked this into place. The EEA stapler apparatus was tightened. We made sure that there was no bowel loop or any other organ caught between the circular staplers. The stapler was fired to create our end-to-end anastomosis. The stapler apparatus was then removed completely. The anastomotic ring was examined and this appeared intact on both proximal and distal areas. We tested the anastomosis by immersing this in irrigation fluid and insufflating the rectum with a bulb syringe. There was no bubbling of air from around the anastomosis I examined the left colon and the anastomosis. This appeared to be a little tight so I mobilized more of the left colon. I inserted a 5 mm port in the left lower quadrant. I position the LigaSure through this new port and mobilized the left colon all the way to the splenic flexure. Examined the left colon again all the way to the anastomosis and this time this that appeared to have any tension after mobilization of the splenic flexure We then proceeded to the flexible sigmoidoscopy. The 1st assistant gm of content & delivery inserted the flexible scope into the anal orifice and advanced with insufflation gently until the anastomotic site was seen. The anastomosis appeared intact, without any bleeding nor signs of ischemia. We insufflated through this flexible scope and there was no bubbling with the anastomosis immersed in fluid We therefore proceeded to withdraw the scope completely. I examined the rest of the abdominal cavity laparoscopically. There was no evidence of any bleeding. There was no evidence of any bowel injury. I position the amount of omentum that the patient had inferiorly. We desufflated and removed all ports except for the epigastric port We closed the fascia with a running Maxon 1 stitch. I examined the fascial clos ure laparoscopically through the epigastric port and there was no bowel caught by the sutures so we removed the epigastric port and desufflated We closed the skin incisions with Polysorb 4-0 subcuticular running sutures. All incisions were infiltrated with Marcaine 0.5% for postop analgesia. Dressings were applied. The procedure was completed The patient tolerated the procedure well. There were no immediate complications. Initial final counts of sponges and instruments were correct. Estimated blood loss was about 75 cc The patient was extubated without difficulty and transferred to the recovery room with stable vital signs. The urine output was clear and inadequate.
[2023-09-02] MEDS: Haloperidol Lactate 5 MG/ML VIAL 1 MG IVPUSH (14:11)
[2023-09-02] MEDS: HYDROmorphone HCl 0.5 MG/0.5 ML SYRINGE IVPUSH ×2 (14:19→14:30)
--- NOTE | 2023-09-02 15:45 | PM.EVENT ---
Event Note Date of Service: 09/03/23 Event Note: Seen postop Underwent HALS sigmoid resection Sore on incisions Otherwise stable Good urine output, clear Stable vital signs Abdomen soft Pain management Clear liquids Await return of GI function updated at [phone] Time Spent With Patient Time: Total time managing care of this patient today ____ minutes.
[2023-09-02] MEDS: ondansetron HCL 4 MG/2 ML VIAL IVPUSH (16:36)
[2023-09-02] MEDS: oxyCODONE HCl Immed Release 5 MG TABLET PO (16:40)
[2023-09-02] MEDS: Morphine Sulfate 2 MG/ML CARTRIDGE 4 MG IVPUSH (21:26)
[2023-09-03] MEDS: Acetaminophen 1,000 MG/100 ML PIGGYBACK 400 MG IV ×5 (00:06→23:46)
[2023-09-03 03:27] VITALS: BP 135/61; PULSE 66; RESP 20; TEMP 36.9; O2SAT 98
[2023-09-03] MEDS: Morphine Sulfate 2 MG/ML CARTRIDGE 4 MG IVPUSH ×4 (03:54→21:14)
[2023-09-03] MEDS: Lactated Ringers 1,000 ML 100 ML IVCONT ×3 (05:24→21:12)
[2023-09-03] MEDS: Levothyroxine Sodium 75 MCG TABLET PO (05:24)
[2023-09-03 05:33] LABS: MANUAL DIFF FLAG NO
[2023-09-03 05:39] LABS: Basophils Percent Auto 0.1 % (0-2); Hematocrit 34.7 % (37.0-47.0); Hemoglobin 11.9 g/dl (12.0-16.0); Imm Gran Abs Auto 0.02 X10*3/uL (0.00-0.03); Imm Gran Pct Auto 0.2 % (0.0-0.4); Lymphocytes Absolute Auto 1.1 X10*3/uL (1.2-4.9); Lymphocytes Percent Auto 13.5 % (20-40); Mean Corpuscular HGB Conc 34.3 g/dl (31.0-35.0); Mean Corpuscular Hemoglobin 31.8 pg (27.0-33.0); Mean Corpuscular Volume 92.8 fL (80.0-98.0); Mean Platelet Volume 8.7 fL (9.4-12.3); Monocytes Absolute Auto 0.7 X10*3/uL (0.1-1.2); Monocytes Percent Auto 8.3 % (2-11); Neutrophils Absolute Auto 6.5 x10*3/uL (2.0-8.3); Neutrophils Percent Auto 77.9 % (45-73); Platelet Count 207 X10*3/uL (160-400); Red Blood Count 3.74 X10*6/uL (4.20-5.50); Red Cell Distribution Width 12.7 % (11.0-16.0); White Blood Count 8.3 X10*3/uL (4.8-10.8)
[2023-09-03 06:02] LABS: Anion Gap 10 (12-20); Blood Urea Nitrogen 7 mg/dL (9-16); Calcium 8.6 mg/dL (8.4-10.2); Carbon Dioxide 25 mmol/L (22-29); Chloride 109 mmol/L (96-108); Creatinine Clr Calc Pharmacy 88.8; Estimated Glomerular Filt Rate > 60; Glucose Random 101 mg/dL (60-115); Sodium 140 mmol/L (135-145)
[2023-09-03 07:49] VITALS: BP 135/62; PULSE 79; RESP 20; TEMP 36.9; O2SAT 97
--- NOTE | 2023-09-03 08:19 | PM.PNGS ---
Subjective Subjective Date of Service: 09/03/23 <Nidia White PA-C - Last Filed: 09/03/23 08:22> 09/03/23 <Lucian Sun MD - Last Filed: 09/03/23 09:32> Interval history: Feels ok this morning, sore but comfortable with analgesics. Tolerating sips of liquids. Denies flatus. <Nidia White PA-C - Last Filed: 09/03/23 08:22> Physical Exam Vital Signs: Vital Signs: Last Vital Signs Temp 98.5 F 09/03/23 07:49 Pulse 79 09/03/23 07:49 Resp 20 09/03/23 07:49 BP 135/62 09/03/23 07:49 Pulse Ox 97 09/03/23 07:49 O2 Del Method Room Air 09/03/23 07:49 O2 Flow Rate 2 09/02/23 16:10 BMI result Body Mass Index 21.7 <Nidia White PA-C - Last Filed: 09/03/23 08:22> Const: General: comfortable, no acute distress and alert <Nidia White PA-C - Last Filed: 09/03/23 08:22> Orientation/consciousness: patient oriented x3 <JORGE LUIS Antunez Last Filed: 09/03/23 08:22> Resp: Effort & Inspection: normal respiratory effort <Nidia White PA-C - Last Filed: 09/03/23 08:22> GI: Inspection: No distended and Yes incision (dressings intact) <Nidia White PA-C - Last Filed: 09/03/23 08:22> Palpation (GI): Soft to palpation, Tenderness to palpation present (GI) (mild incisional), no guarding and not rigid <JORGE LUIS Antunez Last Filed: 09/03/23 08:22> Skin: General skin exam: no rashes or lesions noted <JORGE LUIS Antunez Last Filed: 09/03/23 08:22> Neuro: General: patient oriented x3 and moves all extremities <JORGE LUIS Antunez Last Filed: 09/03/23 08:22> Objective Data Active Medications Al Hydroxide/Mg Hydroxide (Magnesium Hydrox/Alum Hydrox 30 Ml Oral.Susp) 30 ml PO Q4H PRN PRN Reason: Heartburn/Nausea Heparin Sodium (Porcine) (Heparin Sodium,Porcine 5,000 Unit/Ml Vial) 5,000 unit SUBCUT Q8H [facility] Lactated Ringer's (Lr) 1,000 mls @ 100 mls/hr IVCONT .Q10H [facility] Last Admin: 09/03/23 05:24 Dose: 100 mls/hr Documented By: MARK Acetaminophen (Ofirmev) 1,000 mg in 100 mls @ 400 mls/hr IV Q6H [facility] Last Infusion: 09/03/23 05:42 Dose: Infused Documented By: MARK Levothyroxine Sodium (Levothyroxine Sodium 75 Mcg Tablet) 75 mcg PO DAILY@0600 [facility] Last Admin: 09/03/23 05:24 Dose: 75 mcg Documented By: MARK Melatonin (Melatonin 3 Mg Tablet) 6 mg PO BEDTIME PRN PRN Reason: Insomnia Morphine Sulfate (Morphine Sulfate 2 Mg/Ml Cartridge) 4 mg IVPUSH Q4H PRN; Protocol PRN Reason: Pain, Severe (Pain Scale 7-10) Last Admin: 09/03/23 03:54 Dose: 4 mg Documented By: MARK Omeprazole (Omeprazole 20 Mg Capsule.Dr) 20 mg PO DAILY PRN PRN Reason: Acid Reflux Ondansetron HCl (Ondansetron Hcl 4 Mg/2 Ml Vial) 4 mg IVPUSH Q8H PRN PRN Reason: Nausea and Vomiting Last Admin: 09/02/23 16:36 Dose: 4 mg Documented By: MARIA A Oxycodone HCl (Oxycodone Hcl Immed Release 5 Mg Tablet) 5 mg PO Q4H PRN PRN Reason: Pain, Moderate(Pain Scale 4-6) Last Admin: 09/02/23 16:40 Dose: 5 mg Documented By: MARIA A Sodium Chloride (0.9 % Sodium Chloride Flush 3 Ml Syringe) 3 ml IVFLUSH QSHIFT [facility] Last Admin: 09/03/23 00:12 Dose: Not Given Documented By: MARK Non-Admin Reason: IV Running <Nidia White PA-C - Last Filed: 09/03/23 08:22> Labs CBC & Chem 7: 09/03/23 05:27 09/03/23 05:27 <Nidia White PA-C - Last Filed: 09/03/23 08:22> Labs: Laboratory Results - last 24 hr 09/03/23 05:27 MCV 92.8 MCH 31.8 MCHC 34.3 RDW 12.7 Plt Count 207 MPV 8.7 L Immature Gran % (Auto) 0.2 Neut % (Auto) 77.9 H Lymph % (Auto) 13.5 L Darke % (Auto) 8.3 Eos % (Auto) 0.0 Baso % (Auto) 0.1 Lymph # (Auto) 1.1 L Darke # (Auto) 0.7 Eos # (Auto) 0.0 Baso # (Auto) 0.0 Abs Immat Gran (auto) 0.02 Absolute Neuts (auto) 6.5 Absolute Nucleated RBC 0.000 Nucleated RBC % (auto) 0.0 Anion Gap 10 L Estim Creat Clear Calc 88.8 Estimated GFR > 60 Random Glucose 101 Calcium 8.6 D <Nidia White PA-C - Last Filed: 09/03/23 08:22> Procedures Date of Service Date of Service: 09/03/23 <Nidia White PA-C - Last Filed: 09/03/23 08:22> 09/03/23 <Lucian Sun MD - Last Filed: 09/03/23 09:32> Progress Note: A&P Assessment and plan (1) Sigmoid diverticulitis: Status: Acute <Nidia White PA-C - Last Filed: 09/03/23 08:22> Assessment and Plan: Good pain control Denies flatus Abdomen soft and benign Tenderness appropriate to postop course Await return of GI function Ambulate Pain management Keep on clear liquids for now Seen and examined independently <Lucian Sun MD - Last Filed: 09/03/23 09:32> Assessment and Plan: POD #1 s/p Hand assisted laparoscopic sigmoid resection with end-to-end anastomosis, extensive lysis of adhesions, mobilization of the splenic flexure, intraop flexible sigmoidoscopy. Doing well post op, pain well controlled. VSS. Abd exam benign with appropriate post op tenderness, dressings intact and dry. Dc stokes, cont IVF and clear liquids until evidence of GI function. Encouraged OOB/ambulation today and IS use. AM labs reviewed. <Nidia White PA-C - Last Filed: 09/03/23 08:22> Time Spent With Patient Time: Total time managing care of this patient today ____ minutes. <Nidia White PA-C - Last Filed: 09/03/23 08:22> Quality Stroke Does the patient have a stroke diagnosis?: No <Nidia White PA-C - Last Filed: 09/03/23 08:22> VTE Prior VTE?: No <Nidia White PA-C - Last Filed: 09/03/23 08:22> VTE Risk Level:: Medical - moderate - high <JORGE LUIS Antunez Last Filed: 09/03/23 08:22> VTE Device Contraindication: N/A - Device Ordered <JORGE LUIS Antunez Last Filed: 09/03/23 08:22> VTE Drug Contraindication: N/A - Med Ordered <Nidia White PA-C - Last Filed: 09/03/23 08:22>
--- NOTE | 2023-09-03 08:41 | MHC.CM.PN ---
CM met with Patient at bedside and assisted her with the completion of a HCP; she named her and her Son as her Agents. Patient lives in a house with her and she required no services nor DME [employer]. Home/self care is the goal and CM has initiated and will follow for dc planning. PCP is Dr. Chari Rabago.
[2023-09-03] MEDS: 0.9 % Sodium Chloride Flush 3 ML SYRINGE IVFLUSH ×2 (09:03→18:01)
--- NOTE | 2023-09-03 14:59 | HO.POSTANES ---
Post Anesthesia Evaluation Post Anesthesia Evaluation Date of Service: 09/03/23 Vital Signs: Vital Signs Temp Pulse Resp BP Pulse Ox O2 Del Method 09/03/23 07:49 98.5 F 79 20 135/62 97 Room Air 09/03/23 03:27 98.5 F 66 20 135/61 98 Room Air Anesthesia: General Endotracheal-GETA Mental Status: Awake Pain Control: Satisfactory Nausea/Vomiting: None Hydration: Adequate Anesthesia-Related Issues: No Anes. Related Issues
[2023-09-03] MEDS: Heparin Sodium,Porcine 5,000 UNIT/ML VIAL 5000 UNIT SUBCUT ×2 (15:10→23:46)
[2023-09-03 15:14] VITALS: BP 132/63; PULSE 66; RESP 20; TEMP 37.3; O2SAT 99
[2023-09-03 19:35] VITALS: BP 130/62; PULSE 63; RESP 18; TEMP 37.2; O2SAT 99
[2023-09-04] MEDS: oxyCODONE HCl Immed Release 5 MG TABLET PO ×2 (02:24→16:30)
[2023-09-04] MEDS: 0.9 % Sodium Chloride Flush 3 ML SYRINGE IVFLUSH ×3 (02:33→16:25)
[2023-09-04 04:00] VITALS: BP 151/73; PULSE 62; RESP 18; TEMP 36.5; O2SAT 97
[2023-09-04] MEDS: Acetaminophen 1,000 MG/100 ML PIGGYBACK 400 MG IV ×3 (07:06→20:35)
[2023-09-04] MEDS: Heparin Sodium,Porcine 5,000 UNIT/ML VIAL 5000 UNIT SUBCUT ×3 (07:13→22:06)
[2023-09-04] MEDS: Levothyroxine Sodium 75 MCG TABLET PO (07:14)
[2023-09-04] MEDS: Morphine Sulfate 2 MG/ML CARTRIDGE 4 MG IVPUSH (07:15)
[2023-09-04] MEDS: Lactated Ringers 1,000 ML 100 ML IVCONT (07:19)
[2023-09-04 07:21] VITALS: BP 156/69; PULSE 61; RESP 18; TEMP 36.3; O2SAT 97
--- NOTE | 2023-09-04 09:41 | PM.PNGS ---
Subjective Subjective Date of Service: 09/05/23 Interval history: Feels okay Tolerating clear liquids Denies flatus Sore on incisions No nausea or vomiting Says she has been ambulating Physical Exam Vital Signs: Vital Signs: Last Vital Signs Temp 97.4 F 09/04/23 07:21 Pulse 61 09/04/23 07:21 Resp 18 09/04/23 07:21 BP 156/69 H 09/04/23 07:21 Pulse Ox 97 09/04/23 07:21 O2 Del Method Room Air 09/04/23 07:21 O2 Flow Rate 2 09/02/23 16:10 BMI result Body Mass Index 21.7 Const: General: comfortable and no acute distress Resp: Effort & Inspection: normal respiratory effort GI: Other: Incisions clean and dry, with some ecchymosis Palpation (GI): Soft to palpation, not firm and no guarding Objective Data Active Medications Al Hydroxide/Mg Hydroxide (Magnesium Hydrox/Alum Hydrox 30 Ml Oral.Susp) 30 ml PO Q4H PRN PRN Reason: Heartburn/Nausea Heparin Sodium (Porcine) (Heparin Sodium,Porcine 5,000 Unit/Ml Vial) 5,000 unit SUBCUT Q8H [facility] Last Admin: 09/04/23 07:13 Dose: 5,000 unit Documented By: JASON Acetaminophen (Ofirmev) 1,000 mg in 100 mls @ 400 mls/hr IV Q6H [facility] Last Infusion: 09/04/23 07:53 Dose: Infused Documented By: JASON Levothyroxine Sodium (Levothyroxine Sodium 75 Mcg Tablet) 75 mcg PO DAILY@0600 [facility] Last Admin: 09/04/23 07:14 Dose: 75 mcg Documented By: JASON Melatonin (Melatonin 3 Mg Tablet) 6 mg PO BEDTIME PRN PRN Reason: Insomnia Morphine Sulfate (Morphine Sulfate 2 Mg/Ml Cartridge) 4 mg IVPUSH Q4H PRN; Protocol PRN Reason: Pain, Severe (Pain Scale 7-10) Last Admin: 09/04/23 07:15 Dose: 4 mg Documented By: JASON Omeprazole (Omeprazole 20 Mg Capsule.Dr) 20 mg PO DAILY PRN PRN Reason: Acid Reflux Ondansetron HCl (Ondansetron Hcl 4 Mg/2 Ml Vial) 4 mg IVPUSH Q8H PRN PRN Reason: Nausea and Vomiting Last Admin: 09/02/23 16:36 Dose: 4 mg Documented By: MARIA A Oxycodone HCl (Oxycodone Hcl Immed Release 5 Mg Tablet) 5 mg PO Q4H PRN PRN Reason: Pain, Moderate(Pain Scale 4-6) Last Admin: 09/04/23 02:24 Dose: 5 mg Documented By: JASON Sodium Chloride (0.9 % Sodium Chloride Flush 3 Ml Syringe) 3 ml IVFLUSH [facility] Last Admin: 09/04/23 08:31 Dose: 3 ml Documented By: WILLIAC Labs 09/03/23 05:27 09/03/23 05:27 Procedures Date of Service Date of Service: 09/05/23 Progress Note: A&P Assessment and plan (1) Sigmoid diverticulitis: Status: Acute Assessment and Plan: Status post sigmoid resection Await return of GI function Okay to try full liquids today Ambulate Abdomen soft and benign Looks well overall Time Spent With Patient Time: Total time managing care of this patient today ____ minutes. Quality Stroke Does the patient have a stroke diagnosis?: No VTE Prior VTE?: No VTE Risk Level:: Medical - moderate - high VTE Device Contraindication: N/A - Device Ordered VTE Drug Contraindication: N/A - Med Ordered
--- NOTE | 2023-09-04 14:55 | PM.EVENT ---
Event Note Date of Service: 09/04/23 Event Note: seen on afternoon rounds passing good amounts of flatus able to hold off on IV pain meds for longer intervals ambulating looks well abd soft ok to try small amounts of regular food tonight Time Spent With Patient Time: Total time managing care of this patient today ____ minutes.
[2023-09-04 15:06] VITALS: BP 131/61; PULSE 63; RESP 18; TEMP 36.3; O2SAT 98
[2023-09-04 20:00] VITALS: BP 119/49; PULSE 75; RESP 18; TEMP 37.1; O2SAT 97
[2023-09-05] MEDS: 0.9 % Sodium Chloride Flush 3 ML SYRINGE IVFLUSH ×2 (01:38→13:08)
[2023-09-05] MEDS: Acetaminophen 1,000 MG/100 ML PIGGYBACK 400 MG IV ×3 (01:38→13:05)
[2023-09-05 02:35] VITALS: BP 121/55; PULSE 60; RESP 20; TEMP 36.7; O2SAT 94
[2023-09-05] MEDS: Heparin Sodium,Porcine 5,000 UNIT/ML VIAL 5000 UNIT SUBCUT (06:16)
[2023-09-05] MEDS: Levothyroxine Sodium 75 MCG TABLET PO (06:16)
[2023-09-05] MEDS: oxyCODONE HCl Immed Release 5 MG TABLET PO ×2 (06:48→13:04)
[2023-09-05 07:05] VITALS: BP 138/61; PULSE 61; RESP 20; TEMP 36.6; O2SAT 96
--- NOTE | 2023-09-05 08:05 | P.PNGS_ITS ---
Subjective Subjective Date of Service: 09/08/23 Interval history: Says she is tired Continues to pass flatus Tolerating regular diet Some incisional pain Has been ambulating Physical Exam 2 Vital Signs: Vital Signs: Last Vital Signs Temp 97.8 F 09/05/23 07:05 Pulse 61 09/05/23 07:05 Resp 20 09/05/23 07:05 BP 138/61 09/05/23 07:05 Pulse Ox 96 09/05/23 07:05 O2 Del Method Room Air 09/05/23 07:05 O2 Flow Rate 2 09/02/23 16:10 BMI result Body Mass Index 21.7 Const: General: comfortable and no acute distress Resp: Effort & Inspection: normal respiratory effort Cardio: Rate: regular rate GI: Other: Incisions clean and dry, with ecchymosis Palpation (GI): Soft to palpation, not firm and no guarding Objective Data Active Medications Al Hydroxide/Mg Hydroxide (Magnesium Hydrox/Alum Hydrox 30 Ml Oral.Susp) 30 ml PO Q4H PRN PRN Reason: Heartburn/Nausea Heparin Sodium (Porcine) (Heparin Sodium,Porcine 5,000 Unit/Ml Vial) 5,000 unit SUBCUT Q8H [facility] Last Admin: 09/05/23 06:16 Dose: 5,000 unit Documented By: SHANNEN Acetaminophen (Ofirmev) 1,000 mg in 100 mls @ 400 mls/hr IV Q6H [facility]; Protocol Last Infusion: 09/05/23 02:20 Dose: Infused Documented By: SHANNEN Levothyroxine Sodium (Levothyroxine Sodium 75 Mcg Tablet) 75 mcg PO DAILY@0600 [facility] Last Admin: 09/05/23 06:16 Dose: 75 mcg Documented By: SHANNEN Melatonin (Melatonin 3 Mg Tablet) 6 mg PO BEDTIME PRN PRN Reason: Insomnia Morphine Sulfate (Morphine Sulfate 2 Mg/Ml Cartridge) 4 mg IVPUSH Q4H PRN; Protocol PRN Reason: Pain, Severe (Pain Scale 7-10) Last Admin: 09/04/23 07:15 Dose: 4 mg Documented By: JASON Omeprazole (Omeprazole 20 Mg Capsule.Dr) 20 mg PO DAILY PRN PRN Reason: Acid Reflux Ondansetron HCl (Ondansetron Hcl 4 Mg/2 Ml Vial) 4 mg IVPUSH Q8H PRN PRN Reason: Nausea and Vomiting Last Admin: 09/02/23 16:36 Dose: 4 mg Documented By: MARIA A Oxycodone HCl (Oxycodone Hcl Immed Release 5 Mg Tablet) 5 mg PO Q4H PRN PRN Reason: Pain, Moderate(Pain Scale 4-6) Last Admin: 09/05/23 06:48 Dose: 5 mg Documented By: AJTRAnish Sodium Chloride (0.9 % Sodium Chloride Flush 3 Ml Syringe) 3 ml IVFLUSH [facility] Last Admin: 09/05/23 01:38 Dose: 3 ml Documented By: SALMOD Labs 09/03/23 05:27 09/03/23 05:27 Procedures Date of Service Date of Service: 09/08/23 Progress Note: A&P Assessment and plan (1) Sigmoid diverticulitis: Status: Acute Assessment and Plan: Status post sigmoid resection Clinically doing well Has flatus Tolerating diet so far Plan to discharge once comfortable enough with pain control Time Spent With Patient Time: Total time managing care of this patient today ____ minutes. Quality Stroke Does the patient have a stroke diagnosis?: No VTE Prior VTE?: No VTE Risk Level:: Medical - moderate - high VTE Device Contraindication: N/A - Device Ordered VTE Drug Contraindication: N/A - Med Ordered
[2023-09-05] MEDS: Docusate Sodium 100 MG CAPSULE PO (08:32)
--- NOTE | 2023-09-05 13:44 | MHC.CM.PN ---
EMR reviewed and per MD rounds, pt is not medically cleared for D/C due to continued management needed for post-op care.
--- NOTE | 2023-09-05 13:51 | PM.EVENT ---
Event Note Date of Service: 09/05/23 Event Note: continues to feel well passing good amounts of flatus ambulating tolerating diet looks well abd soft she says she wants to go home and feels ready instructions given to patient clinically doing well Time Spent With Patient Time: Total time managing care of this patient today ____ minutes.
--- NOTE | 2023-09-05 15:53 | MHC.CM.PN ---
Pt is medically cleared for D/C home self-care, pts to transport her home.
--- NOTE | 2023-09-09 14:04 | PM.DS ---
DS: Providers Provider Date of Service: 09/05/23 Date of admission: 09/02/23 07:46 Primary care physician: Chari Rabago MD Attending physician on admission: Lucian Sun Attending physician on discharge: Lucian Sun DS: Diagnosis Discharge Diagnosis (1) Sigmoid diverticulitis: Status: Acute DS: Summary Hospital Course Hospital Course: HPI AT ADMISSION: 57 year female here for follow-up for diverticular disease. She was 1st diagnosed to have acute sigmoid diverticulitis in 2013. At that time, she had pericolonic abscess and had 2 drains placed. She then had subsequent C diff colitis at that time as well. Since that time, she has had this periodic left lower quadrant pain over the years. She says that often times, she really does not go to the ER anymore she stays on clear liquids until the pain would resolve in about 2-3 days. She went to the ER and was admitted again in 2018 for the same problem of acute diverticulitis. She went to the ER and was admitted again last February 10, 2023. She also says that since she had been diagnosed in 2013, feels that her bowel movements have not been the same. She would notice this to be in small amounts and says that she does not seem to empty well with BMs. She had a colonoscopy done in 2020 in [facility] in this showed sigmoid diverticulosis and hemorrhoids. She was admitted overnight to the hospital last 07/18/2023 because of acute diverticulitis again. I had last seen her in the office last March, for her recurrent diverticulitis. We had a long discussion about the option of sigmoid resection. She was undecided at that time however given her recurrent episodes and persistent pain she now wants to proceed. Technique of hand assisted laparoscopic sigmoid resection and possible open resection was discussed and arrangements made. HOSPITAL COURSE: Hand assisted laparoscopic sigmoid resection with end-to-end anastomosis, extensive lysis of adhesions, mobilization of the splenic flexure, intraop flexible sigmoidoscopy was performed on 09/02/[address] Sun without complication. The patient tolerated the procedure well and was admitted post operatively for observation. She had an uncomplicated recovery course. On POD#1, she was doing well with good pain control on IV and PO analgesics. She was tolerating clear liquids without nausea or vomiting. Her stokes was removed. She was ambulated. On POD #2 she was advanced to full liquids and began to pass flatus later in the day and was advanced to solids. The following day she was tolerating a solid diet without nausea or vomiting and had good pain control on oral analgesics. She was hemodynamically stable. Her abdomen was benign with clean incisions. She had not had a bowel movement but was passing continuous flatus. She was reassessed later in the day and felt ready for discharge to home. She was discharged to home on 09/05/23 in stable condition, on POD #3. She is to follow up in the office in 2 weeks. Status at Discharge Functional status at discharge: independent ambulation Overall status at discharge: patient is progressing back to baseline Time Attestation Discharge Coordination Time (in mins): 35 Quality: Safe Use of Opioids Does Pt have an Active Cancer Diagnosis on the Problem List?: No Quality: Stroke Does the patient have a stroke diagnosis?: No Physical Exam Vital Signs: Vital Signs: Last Vital Signs Temp 97.8 F 09/04/ 07:05 Pulse 61 09/05/23 07:05 Resp 20 09/05/23 07:05 BP 138/61 09/05/23 07:05 Pulse Ox 96 09/05/23 07:05 O2 Del Method Room Air 09/05/23 07:05 O2 Flow Rate 2 09/02/23 16:10 BMI result Body Mass Index 21.7 Resp: Effort & Inspection: normal respiratory effort GI: Inspection: Yes incision (clean, some ecchymosis ) Palpation (GI): no guarding Skin: General skin exam: no rashes or lesions noted DS: Data Data Completed and Pending Completed studies during hospitalization [Text1]: 09/02/23 12:29 Surgical [PTH] Routine A. Colon, sigmoid, segmental resection: Chronic diverticulosis with mesenteric and serosal fibrosis and chronic inflammation with focal foreign body giant cell reaction to fecal material. B. Labeled EEA rings , excision: Two annular portions of bowel with no specific change, consistent with anastomotic rings. Pending studies at discharge: Pending at discharge 09/02/23 13:49 Surgical [PTH] Routine Discharge Plan Discharge Anticipated Discharge Date/Time: 09/05/23 13:47 Patient Disposition: Home, Self-Care Discharge Diagnosis: recurrent diverticulitis Referrals: Lucian Sun MD [Physician] - 2 Weeks Discharge Medications: New oxycodone-acetaminophen [Percocet] 5-325 mg tablet 1 tab PO Q4-6H PRN (Reason: pain) Qty: 25 0RF Rx Instructions: Partial Fill upon patient request. ibuprofen 600 mg tablet 600 mg PO Q6H PRN (Reason: pain) Qty: 30 0RF Continued omeprazole magnesium [Prilosec OTC] 20 mg Tablet,Delayed Release (Dr/Ec) 20 mg PO DAILY PRN (Reason: Acid Reflux) levothyroxine 75 mcg tablet 75 mcg PO DAILY@0600 estradiol 0.01 % (0.1 mg/gram) cream 1 appful vaginal 3XW ondansetron 4 mg tablet,disintegrating 4 mg PO Q8H PRN (Reason: nausea and vomiting) Qty: 9 0RF cholecalciferol (vitamin D3) 25 mcg (1,000 unit) capsule 25 mcg PO DAILY sodium,potassium,mag sulfates [Suprep Bowel Prep Kit] 17.5-3.13-1.6 gram recon soln See Rx Instructions PO .COMPLEX Qty: 354 0RF Rx Instructions: DILUTE; drink full amount early evening before AND next morning at least 2 hr before procedure; follow w 960 mL water PO Discontinued polyethylene glycol 3350 [Miralax] 17 gram Powder In Packet 17 g PO DAILY Discharge Orders: Discharge Order (Routine); Ordered 09/05/23 Ordered By: Lucian Sun Diet: Advance to usual diet Activity on Discharge: No heavy lifting Stand Alone Forms: Patient Portal Discharge page Print Language: New Zealander Activity Restrictions/Additional Instructions: If the incision area is tender, you may apply an ice pack for short intervals (No more than 20 minutes on, followed by at least 20 minutes off). Do not apply heat. Do not use creams, lotions, or topical antibiotics unless instructed to do so by your surgeon. These can cause infection or allergic reaction. No lifting more than 20 lbs Okay to shower No strenuous activities Call the office for follow-up in 2 weeks - with Dr. Sun Call Your Doctor If: -Your temperature exceeds 101.5? F -You experience excessive pain or swelling -You have an unexpected reaction to medication -You have excessive bleeding -You experience continued vomiting/nausea -Your incision begins to separate -Your incision shows signs of infection such as increased redness, swelling, excessive pain, drainage (light blood or clear fluid is normal) or heat Care Plan Goals: return to baseline health Health Concerns: postop pain Plan of Treatment: oral pain meds Assessment: doing well Discharge Date/Time: 09/05/23 16:20
== END 2023-09-05 16:20 | disposition home or self-care (01) | DRG 221 ==
LOC: HO.SSSA 16:56 → HO.IMC 19:21 → HO.S3 09-05 12:49 → HO.IMC 09-05 14:04
PROVIDERS: Nurse Practitioner; Physician Assistant Surgical; Admitting Provider Surgery; PCP Internal Medicine; Visit Provider Surgery
PROC: 0DTE0ZZ Resection of Large Intestine, Open Approach (ICD-10-PCS; principal; 2023-09-02 10:00)
DX: K57.32 Diverticulitis of large intestine without perforation or abscess without bleeding (principal); E03.9 Hypothyroidism, unspecified; K66.0 Peritoneal adhesions (postprocedural) (postinfection); Z79.890 Hormone replacement therapy; Z79.899 Other long term (current) drug therapy
CPT/HCPCS: 36415; 80048; 85025; 85027; 86850; 86900; 86901; 88305; 88307; 93005; C1758; J0131; J1100; J1170; J1630; J1644; J2250; J2270; J2405; J2704; J2795; J3010; J7120

== ENCOUNTER → 2023-09-02 07:46 | Outpatient (BNV) | payer BC, SELFPAY | PROVIDERS: Admitting Provider Surgery; PCP Internal Medicine; Visit Provider Physician Assistant Surgical | DX: K57.32 Diverticulitis of large intestine without perforation or abscess without bleeding (principal) | CPT/HCPCS: 44204; 44213; 99024; 99499 ==

== ENCOUNTER 2023-09-17 10:08 | Outpatient (AMB) | payer BC, SELFPAY ==
--- NOTE | 2023-09-17 10:35 | A.OFFVIS_ITS ---
Intake Intake Visit Reasons: S/P laparoscopic sigmoid resection Intake Note: This patient presents for a post-op assessment status post Hand assisted lap sigmoid resection with end-to-end anastomosis. Pt c/o; reports changes in bowel habits, reports some cramping, ? diet. Communications Station Manager Required: No Accompanied by: Other Relationship Allergies Sulfa (Sulfonamide Antibiotics) Allergy (Intermediate, Verified 09/17/23 10:42) Rash cephalexin [From KEFLEX] Allergy (Unknown, Verified 09/17/23 10:42) HIVES methylprednisolone [Medrol] Adverse Reaction (Unknown, Verified 09/17/23 10:42) grandiosity prednisone Adverse Reaction (Unknown, Verified 09/17/23 10:42) grandiosity HPI S/P laparoscopic sigmoid resection HPI Details She had undergone sigmoid resection, hand assisted laparoscopic, last 09/02/2023 for chronic diverticulitis. She tolerated procedure well and was discharged on postop day 3. She says she is doing well at home. She has good oral intake. She has good bowel movements. She denies any significant pain. [facility] Medical History C. difficile colitis Back pain GERD (gastroesophageal reflux disease) Tear of left supraspinatus tendon Calcific tendinitis of left shoulder Sigmoid diverticulitis History of diverticulitis of colon Irritable bowel syndrome with constipation and diarrhea Menopause Annual visit for general adult medical examination with abnormal findings Chronic leukopenia SALLY positive Cyst of right breast Narrow angle glaucoma suspect Recurrent cold sores Acquired hypothyroidism Surgical History Hx of surgical procedure (~09/02/23) Hx of eye surgery Hx of tonsillectomy H/O colonoscopy Diverticulitis History of back surgery Family History Father Smoker CVD (cardiovascular disease) HTN (hypertension) Mother HTN (hypertension) CVD (cardiovascular disease) Pancreatic cancer Mental health disorder Maternal Grandfather Depression Cervical cancer Maternal Grandmother Alcoholism Paternal Grandfather Alcoholism Paternal Grandmother No problems noted. 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 [employer] Cognitive needs: No Hearing needs: No Vision needs: Yes Review of Systems Const Denies chills and Denies fever(s) Card Denies chest pain, Denies dyspnea and Denies dyspnea on exertion Resp Denies cough, Denies dyspnea and Denies dyspnea on exertion GI Denies hematochezia and Denies change in bowel habits Denies hematuria Musc Denies back pain and Denies limited range of motion Neuro Denies focal weakness and Denies convulsions Psych Denies depression and Denies mood swings Physical Exam Const General: comfortable and no acute distress Resp Effort & Inspection: normal respiratory effort GI Other: Incisions are well healed Palpation (GI): Soft to palpation, not firm, nontender and no guarding Assessment & Plan Assessment & Plan (1) History of diverticulitis of colon: Code(s): Z87.19 - Personal history of other diseases of the digestive system Plan: Status post sigmoid resection. She is doing very well. All incisions are well healed. She has good GI functions I advised her to avoid lifting of anything more than 20 lb for at least 4 weeks postop. Her path report consistent with chronic diverticulitis. She looks well overall. She can follow up on a p.r.n. basis. Coding Level of Care Code Global (48539) Diagnoses History of diverticulitis of colon Z87.19
== END 2023-09-17 11:09 | disposition home or self-care (01) ==
PROVIDERS: PCP Internal Medicine; Visit Provider Surgery
DX: Z87.19 Personal history of other diseases of the digestive system (principal)
CPT/HCPCS: 99024

== ENCOUNTER → 2023-09-17 10:08 | Outpatient (BNVA) | payer BC, SELFPAY | PROVIDERS: PCP Internal Medicine; Visit Provider Surgery ==

== ENCOUNTER 2024-02-11 12:49 | Outpatient (AMB) | payer BC, SELFPAY ==
--- NOTE | 2024-02-11 12:50 | A.OFFPC_ITS ---
Vital Signs 02/11/24 12:51 Height 5 ft 6 in Weight 141 lb BMI 22.8 BP 120/72 Blood Pressure Location Lt brachial Position Sitting Pulse 79 Pulse Source Pulse Oximeter Pulse Oximetry (%) 97 Oxygen Delivery Method Room Air Intake Visit Reasons: Sciatica, per Dr Davison Intake Note: Pt is here today for a sick visit. Pt would like to get a referral to PT for her lower back pain. Allergies Sulfa (Sulfonamide Antibiotics) Allergy (Intermediate, Verified 02/11/24 12:59) Rash cephalexin [From KEFLEX] Allergy (Unknown, Verified 02/11/24 12:59) HIVES methylprednisolone [Medrol] Adverse Reaction (Unknown, Verified 02/11/24 12:59) grandiosity prednisone Adverse Reaction (Unknown, Verified 02/11/24 12:59) grandiosity Medication List - Last Reconciled 02/11/24 by Chari Rabago MD cholecalciferol (vitamin D3) 25 mcg PO DAILY docusate sodium (Colace) 100 mg PO BID estradiol 0.01%(0.1mg/gram) 1 appful vaginal 3XW ibuprofen 600 mg PO Q6H PRN levothyroxine 75 mcg PO DAILY@0600 omeprazole magnesium (Prilosec OTC) 20 mg PO DAILY PRN Tobacco use date assessed: 05/28/23 Dental Screening Dental Screen Date: 05/28/23 HPI Sciatica, per Dr Davison HPI Details 58-year-old lady here today complaining of recurrent pain in her lower back shooting down leg mainly on the left side. Has tried doing stretches, taking ibuprofen, which affords only temporary relief. Has been dealing with this pain now on and off for the last several years, and seems to be getting worse. Denies any accompanying fever, no nausea vomiting abdominal pain, no change in bowel habits, no urinary incontinence reported. [facility] Medical History (Updated 02/11/24 @ 13:23 by Chari Rabago MD) Lumbar back pain with radiculopathy affecting left lower extremity C. difficile colitis Back pain GERD (gastroesophageal reflux disease) Tear of left supraspinatus tendon Calcific tendinitis of left shoulder Sigmoid diverticulitis History of diverticulitis of colon Irritable bowel syndrome with constipation and diarrhea Menopause Annual visit for general adult medical examination with abnormal findings Chronic leukopenia SALLY positive Cyst of right breast Narrow angle glaucoma suspect Recurrent cold sores Acquired hypothyroidism Surgical History (Updated 02/11/24 @ 13:05 by Chari Rabago MD) Hx of lumbosacral spine surgery Hx of surgical procedure (~09/02/23) Hx of eye surgery Hx of tonsillectomy H/O colonoscopy Diverticulitis History of back surgery Family History Father Smoker CVD (cardiovascular disease) HTN (hypertension) Mother HTN (hypertension) CVD (cardiovascular disease) Pancreatic cancer Mental health disorder Maternal Grandfather Depression Cervical cancer Maternal Grandmother Alcoholism Paternal Grandfather Alcoholism Paternal Grandmother No problems noted. 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 1. Little interest or pleasure in doing things: several days 2. Feeling down, depressed, or hopeless: not at all 3. Trouble falling or staying asleep, or sleeping too much: not at all 4. Feeling tired or having little energy: not at all 5. Poor appetite or overeating: not at all 6. Feeling bad about yourself - or that you are a failure or have let yourself or your family down: not at all 7. Trouble concentrating on things, such as reading the newspaper or watching television: not at all 8. Moving or speaking so slowly that other people could have noticed. Or the opposite - being so fidgety or restless that you have been moving around a lot more than usual: not at all 9. Thoughts that you would be better off or of hurting yourself in some way: not at all Total score: 1 Depression Screening Interpretation: Negative Depression Screening Done: Yes 71244 - PHQ-9 Billing: Yes Source: Developed by Drs. Victorino Burroughs, Sara Santos, Brody Rodriguez and colleagues, with an educational tami from [employer]. Thrive Questionnaire Date Thrive assessed: 02/11/24 I am a: Patient What is your living situation today?: I have a steady place to live Within the past 12 months, did the food you bought not last and you didn't have the money to get more?: Never true Within the past 12 months, did you worry whether your food would run out before you got money to buy more?: Never true Do you have trouble paying for medicines?: No Do you have trouble getting transportation to medical appointments?: No Do you have trouble paying your heating and electricity bill?: No Do you have trouble taking care of your child, family member or friend?: No Do you have trouble with day-to-day activities such as bathing, preparing meals, shopping, managing finances, etc.?: No Are you currently unemployed and looking for a job?: No Are you interested in more education?: No Please select the resources that you would like help with: None Currently or been in a relationship where the following occur: No concerns reported THRIVE Score: 0 AUDIT C Alcohol Use Questionnaire (AUDIT-C) 1. How often do you have a drink containing alcohol?: 2-4 times a month 2. How many drinks containing alcohol do you have on a typical day when you are drinking?: 1 or 2 3. How often do you have six or more drinks on one occasion?: Never Total Score: 2 ERICK-7 AMB Questionnaire ERICK-7 Date ERICK - 7 assessed: 02/11/24 Feeling nervous, anxious, or on edge: 0 = Not at all Not being able to stop or control worryin = Not at all Worrying too much about different things: 0 = Not at all Trouble relaxin = Not at all Being so restless that it is hard to sit still: 0 = Not at all Becoming easily annoyed or irritable: 0 = Not at all Feeling afraid as if something awful might happen: 0 = Not at all Total ERICK-7 score (0-4 normal; 5-9 mild; 10-14 moderate; 15-21 severe): 0 Source: Developed by Drs. Victorino Burroughs, Sara Santos, Brody Rodriguez and colleagues, with an educational tami from [employer]. Review of Systems Const All systems reviewed & are unremarkable except as noted in HPI and below Physical exam (Primary Care) Vital Signs: Last Vital Signs Pulse 79 02/11/24 12:51 BP 120/72 02/11/24 12:51 Pulse Ox 97 02/11/24 12:51 Oxygen Delivery Method Room Air 02/11/24 12:51 BMI result Body Mass Index 22.8 Tobacco/Smoking Status: Tobacco use Status Tobacco use date assessed 05/28/23 02/11/24 12:56 Patient Tobacco Use Status Never used Tobacco 02/11/24 12:56 e-Cigarette/Vaping Use Never Used 02/11/24 12:56 PHQ-9: PHQ-9 Score PHQ-9: Total score 1 02/11/24 13:24 Depression Screening Interpretation: Negative Thrive Assessment: Date of Thrive Assessment Date Thrive assessed 02/11/24 02/11/24 12:56 Currently or been in a relationship where the following occur: No concerns reported Const Other: Alert oriented x3, ambulatory normal gait Neck Neck: Yes full ROM, Yes no lymphadenopathy and Yes supple Resp Auscultation: clear to auscultation bilaterally Cardio Other: S1-S2 present regular rate and rhythm GI Other: Normal bowel sounds, soft, nontender with no mass palpated General: Yes no CVA tenderness Back/Spine/Pelvis Back: no CVA tenderness Thoracic/Lumbar Spine: thoraco-lumbar ROM normal, straight leg raise negative bilaterally, No bend over test abnormal and paraspinal muscle tenderness on the left Skin General skin exam: no rashes or lesions noted Neuro General: tone normal, moves all extremities, Normal light touch and pain sensation and no focal motor deficits Extrem General: Yes full ROM, Yes no joint enlargement, Yes no pedal edema and Yes normal gait Assessment and Plan Assessment & Plan (1) Lumbar back pain with radiculopathy affecting left lower extremity: Code(s): M54.16 - Radiculopathy, lumbar region (2) Hx of lumbosacral spine surgery: Code(s): Z98.890 - Other specified postprocedural states Plan Ordered MRI of lumbar spine without contrast, referred for physical therapy evaluation , prescription also sent for short course of tramadol 50 mg per tablet to take 1 tablet together with the Tylenol 500 mg 1 tablet once or twice a day only as needed for severe pain Orders: Orders MR lumbar spine wo con 02/11/24 M54.16 - Radiculopathy, lumbar region, Z98.890 - Other specified postprocedural states PT Evaluation and Treatment 02/11/24 M54.16 - Radiculopathy, lumbar region, Z98.890 - Other specified postprocedural states Free T4 (Free Thyroxine) 06/02/24 D72.819 - Decreased white blood cell count, unspecified, E03.9 - Hypothyroidism, unspecified, Z00.01 - Encounter for general adult medical examination with abnormal findings, Z13.1 - Encounter for screening for diabetes mellitus, Z13.220 - Encounter for screening for lipoid disorders Lipid Panel 06/02/24 D72.819 - Decreased white blood cell count, unspecified, E03.9 - Hypothyroidism, unspecified, Z00.01 - Encounter for general adult medical examination with abnormal findings, Z13.1 - Encounter for screening for diabetes mellitus, Z13.220 - Encounter for screening for lipoid disorders Aspartate Amino Transferase 06/02/24 D72.819 - Decreased white blood cell count, unspecified, E03.9 - Hypothyroidism, unspecified, Z00.01 - Encounter for general adult medical examination with abnormal findings, Z13.1 - Encounter for screening for diabetes mellitus, Z13.220 - Encounter for screening for lipoid disorders Vitamin D 25-OH Total 06/02/24 D72.819 - Decreased white blood cell count, unspecified, E03.9 - Hypothyroidism, unspecified, Z00.01 - Encounter for general adult medical examination with abnormal findings, Z13.1 - Encounter for screening for diabetes mellitus, Z13.220 - Encounter for screening for lipoid disorders Thyroid Stimulating Hormone 06/02/24 D72.819 - Decreased white blood cell count, unspecified, E03.9 - Hypothyroidism, unspecified, Z00.01 - Encounter for general adult medical examination with abnormal findings, Z13.1 - Encounter for screening for diabetes mellitus, Z13.220 - Encounter for screening for lipoid disorders Alanine Aminotransferase 06/02/24 D72.819 - Decreased white blood cell count, unspecified, E03.9 - Hypothyroidism, unspecified, Z00.01 - Encounter for general adult medical examination with abnormal findings, Z13.1 - Encounter for screening for diabetes mellitus, Z13.220 - Encounter for screening for lipoid disorders Basic Metabolic Panel Fasting 06/02/24 D72.819 - Decreased white blood cell count, unspecified, E03.9 - Hypothyroidism, unspecified, Z00.01 - Encounter for general adult medical examination with abnormal findings, Z13.1 - Encounter for screening for diabetes mellitus, Z13.220 - Encounter for screening for lipoid disorders Complete Blood Count Auto Diff 06/02/24 D72.819 - Decreased white blood cell count, unspecified, E03.9 - Hypothyroidism, unspecified, Z00.01 - Encounter for general adult medical examination with abnormal findings, Z13.1 - Encounter for screening for diabetes mellitus, Z13.220 - Encounter for screening for lipoid disorders Medications: New tramadol 50 mg PO DAILY PRN 10 tabs 0RF pain Refilled ibuprofen 600 mg PO Q6H PRN 60 tabs 0RF pain ibuprofen 600 mg PO Q6H PRN 60 tabs 0RF pain Coding Level of Care Code Est Pt Level 4 (30299) Diagnoses Lumbar back pain with radiculopathy affecting left lower extremity M54.16 Hx of lumbosacral spine surgery Z98.890
[2024-02-11 12:51] VITALS: BP 120/72; PULSE 79; O2SAT 97; BMI 22.8
== END 2024-02-11 13:37 | disposition home or self-care (01) ==
PROVIDERS: PCP Internal Medicine; Visit Provider Internal Medicine
DX: M54.16 Radiculopathy, lumbar region (principal); Z98.890 Other specified postprocedural states
CPT/HCPCS: 99214

== ENCOUNTER → 2024-03-04 19:00 | Outpatient (BNV) | payer BC, SELFPAY | PROVIDERS: PCP Internal Medicine; Visit Provider Radiology Diagnostic Radiology | DX: M54.16 Radiculopathy, lumbar region (principal) | CPT/HCPCS: 72148 ==

== ENCOUNTER 2024-03-04 19:07 | Outpatient (REF) | payer BC, SELFPAY ==
--- NOTE | ~2024-03-04 | MR_ITS ---
EXAMINATION: MR LUMBAR SPINE WITHOUT CONTRAST CLINICAL INFORMATION: Radiculopathy, lumbar region. COMPARISON: MRI dated February 25, 2013. TECHNIQUE: MRI of the lumbar spine was obtained using routine sequences without contrast. FINDINGS: Submitted for interpretation on May 05, 2024. Last rib-bearing vertebra labeled T12. No bone marrow STIR signal abnormality. Multilevel marginal osteophyte formation and disc desiccation more conspicuous at L4-5. Modic type II endplate changes at L4-5. Bone marrow inhomogeneity. There is a subtle grade 1 retrolisthesis L3-4 and L4-5. Tarlov cysts left S1 and S2. The conus medullaris ends at pedicle of L1 with normal signal. T12-L1: No disc herniation. No neuroforamina stenosis. L1-2: No disc herniation. No neuroforamina stenosis. L2-3: No disc herniation. No neuroforamina stenosis. Broad-based disc bulging. Facet joint hypertrophy. L3-4: No disc herniation. No neuroforamina stenosis. Broad-based disc bulging. Facet joint hypertrophy. L4-5: No disc herniation. Bilateral neuroforamina narrowing encroaching the L4 exiting nerve roots. Facet joint hypertrophy. L5-S1: Broad-based disc bulging. Facet joint hypertrophy. No central spinal canal stenosis. Bilateral neuroforamina narrowing encroaching the L5 exiting nerve roots. Fatty atrophy of the lower lumbar muscles. No prevertebral compartment hematoma, mass or fluid collection. MR/MR lumbar spine wo con IMPRESSION: Multilevel lumbar spondylosis more conspicuous at L3-4, L4-5 and L5-S1 levels likely encroaching the exiting nerve roots at L4 and L5. Electronically signed by: Kelvin Morales MD 05/05/2024 09:56 AM EST
== END 2024-03-04 19:08 | disposition home or self-care (01) ==
LOC: HO.MRI 19:07
PROVIDERS: PCP Internal Medicine; Visit Provider Internal Medicine
DX: M54.16 Radiculopathy, lumbar region (principal); Z98.890 Other specified postprocedural states
CPT/HCPCS: 72148

== ENCOUNTER 2024-05-18 08:08 | Outpatient (AMB) | payer BC, SELFPAY ==
--- NOTE | 2024-05-18 08:38 | MHC.OFFVIS ---
Vital Signs 05/18/24 08:42 Height 5 ft 6 in Weight 141 lb BMI 22.8 Handedness Right Intake Visit Reasons: Newprob-Pain in right shoulder Intake Note: Brittanie is a 58 year old right hand dominant female who presents to the office today for Pain in her right shoulder. Pt has a hx of calcific tendonitis in her left shoulder. Pain has been going on for 2 months. Pt states she is now having pain in the right shoulder but it feels the same as the left shoulder did. She gets some relief with ibuprofen but it doesn't last. She may have favored the left arm and overused the right, she's not sure. She denies redness, swelling, injury or trauma. Allergies Sulfa (Sulfonamide Antibiotics) Allergy (Intermediate, Verified 05/18/24 08:40) Rash cephalexin [From KEFLEX] Allergy (Unknown, Verified 05/18/24 08:40) HIVES methylprednisolone [Medrol] Adverse Reaction (Unknown, Verified 05/18/24 08:40) grandiosity prednisone Adverse Reaction (Unknown, Verified 05/18/24 08:40) grandiosity HPI HPI Newprob-Pain in right shoulder: Details: 58-year-old female who presents in the office today for an evaluation of right shoulder pain. While in the office today, the patient reports experiencing shoulder pain ongoing for the past 2 months. She has a history of calcific tendonitis in her left shoulder and states she is currently experiencing pain in her right shoulder too that is similar to the pain she has in the left shoulder. She has tried ibuprofen with mild relief; however, it does not last long. She believes she may have overused her right upper extremity more due to the pain in her left shoulder, but she is unsure of it. She denies redness, edema, trauma, or any injury to the right shoulder. [facility] Medical History (Updated 05/18/24 @ 09:39 by Katlyn Carrillo) Lumbar back pain with radiculopathy affecting left lower extremity C. difficile colitis Back pain GERD (gastroesophageal reflux disease) Tear of left supraspinatus tendon Calcific tendinitis of left shoulder Sigmoid diverticulitis History of diverticulitis of colon Irritable bowel syndrome with constipation and diarrhea Menopause Annual visit for general adult medical examination with abnormal findings Chronic leukopenia SALLY positive Cyst of right breast Narrow angle glaucoma suspect Recurrent cold sores Acquired hypothyroidism Surgical History (Updated 02/11/24 @ 13:05 by Chari Rabago MD) Hx of lumbosacral spine surgery Hx of surgical procedure (~09/02/23) Hx of eye surgery Hx of tonsillectomy H/O colonoscopy Diverticulitis History of back surgery Family History Father Smoker CVD (cardiovascular disease) HTN (hypertension) Mother HTN (hypertension) CVD (cardiovascular disease) Pancreatic cancer Mental health disorder Maternal Grandfather Depression Cervical cancer Maternal Grandmother Alcoholism Paternal Grandfather Alcoholism Paternal Grandmother No problems noted. 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 No ecchymosis, erythema, or edema. Full shoulder ROM in all planes. Negative cross-body reach. Five out of five strength with an empty can, but reports pain that radiates from the shoulder to just proximal to the elbow. Negative drop arm. NVI. Office Procedures AMB Joint Injection/Aspiration Joint Injection/Aspiration Primary Site: right shoulder Prep: site was prepped using aseptic technique, ethochloride spray was applied and injection warnings given Injected: 80 mg of, DepoMedrol, with 8 mL of (2% plain lido ) and in the subcromial space Approach Used: posterolateral Procedure: The patient tolerated the procedure well, but had some pain with the injection and there was some relief with the local anesthesia Coding 88394 - Large joint Procedure code (CPT) selection complete Assessment & Plan Assessment & Plan (1) Painful arc syndrome of right shoulder: Code(s): M75.101 - Unspecified rotator cuff tear or rupture of right shoulder, not specified as traumatic Category: Medical Plan Ms. Chaidez is a 58-year-old female who presents in the office today for an evaluation of right shoulder pain. While in the office today, the patient reports experiencing shoulder pain ongoing for the past 2 months. She has a history of calcific tendonitis in her left shoulder and states she is currently experiencing pain in her right shoulder too that is similar to the pain she has in the left shoulder. She has tried ibuprofen with mild relief; however, it does not last long. She believes she may have overused her right upper extremity more due to the pain in her left shoulder, but she is unsure of it. She denies redness, edema, trauma, or any injury to the right shoulder. The patient was offered a cortisone injection in the right shoulder with 80 mg of Depo-Medrol. The patient was explained the risks, benefits, and alternatives to receiving this injection. After receiving consent for the injection, the patient had the procedure done while in the office today. The patient tolerated the procedure well with no complication. The patient has done physical therapy for her left shoulder in the past and was encouraged to perform a home exercise program. She reports she still has PT instruction as well as the resistance bands to do. Follow-up will be PRN, or sooner if needed. X-rays of the right shoulder, which were obtained while in the office today and were reviewed by me, Fanny Almendarez PA-C, revealed: Negative for any acute fracture or dislocation. Orders: Orders XR shoulder RT min 2V Today M25.519 - Pain in unspecified shoulder Patient Instructions: Scribed by Katlyn Carrillo, medical office supervisor, for Fanny Almendarez PA-C on 05/18/24 at 09:10 am EST. Coding Level of Care Code Est Pt Level 3 (79865) Diagnoses Painful arc syndrome of right shoulder M75.101 CPT Codes Coding - 30596 Large joint: 81308 - Large joint ([id number])
[2024-05-18 08:42] VITALS: BMI 22.8
== END 2024-05-18 09:06 | disposition home or self-care (01) ==
PROVIDERS: PCP Internal Medicine; Visit Provider Physician Assistant
DX: M75.101 Unspecified rotator cuff tear or rupture of right shoulder, not specified as traumatic (principal)
CPT/HCPCS: 20610; 99213

== ENCOUNTER 2024-05-18 10:47 | Outpatient (REF) | payer BC, SELFPAY ==
--- NOTE | ~2024-05-18 | XR_ITS ---
EXAMINATION: XR SHOULDER RIGHT CLINICAL INFORMATION: Pain in unspecified shoulder M25.519. COMPARISON: XR Right shoulder 03/20/2007 (report only). TECHNIQUE: Neutral AP, Grashey AP and axial views of the right shoulder. FINDINGS: Mild arthrosis of the acromioclavicular joint. Glenohumeral joint normal. Surrounding bone and soft tissues unremarkable XR/XR shoulder RT min 2V IMPRESSION: Mild arthrosis of the acromioclavicular joint. Electronically signed by: Delano Stubbs MD 05/23/2024 09:37 AM EST
== END 2024-05-18 10:48 | disposition home or self-care (01) ==
LOC: HO.HOSX 10:47
PROVIDERS: Visit Provider Physician Assistant
DX: M25.511 Pain in right shoulder (principal); M75.101 Unspecified rotator cuff tear or rupture of right shoulder, not specified as traumatic
CPT/HCPCS: 20610; 73030; J1010; J2003

== ENCOUNTER 2024-05-25 07:12 | Outpatient (REF) | payer BC, SELFPAY ==
[2024-05-25 07:26] LABS: MANUAL DIFF FLAG NO
[2024-05-25 08:00] LABS: Basophils Percent Auto 0.5 % (0-2); Eosinophils Absolute Auto 0.1 X10*3/uL (0.0-0.4); Eosinophils Percent Auto 1.9 % (0-4); Hematocrit 40.3 % (37.0-47.0); Hemoglobin 13.5 g/dl (12.0-16.0); Imm Gran Abs Auto 0.01 X10*3/uL (0.00-0.03); Imm Gran Pct Auto 0.2 % (0.0-0.4); Lymphocytes Absolute Auto 1.4 X10*3/uL (1.2-4.9); Lymphocytes Percent Auto 31.9 % (20-40); Mean Corpuscular HGB Conc 33.5 g/dl (31.0-35.0); Mean Corpuscular Hemoglobin 31.4 pg (27.0-33.0); Mean Corpuscular Volume 93.7 fL (80.0-98.0); Monocytes Absolute Auto 0.4 X10*3/uL (0.1-1.2); Monocytes Percent Auto 9.5 % (2-11); Neutrophils Absolute Auto 2.4 x10*3/uL (2.0-8.3); Platelet Count 236 X10*3/uL (160-400); Red Cell Distribution Width 12.5 % (11.0-16.0); White Blood Count 4.2 X10*3/uL (4.8-10.8)
[2024-05-25 08:24] LABS: Anion Gap 12 (12-20); Aspartate Amino Transferase 26 U/L (5-31); Blood Urea Nitrogen 19 mg/dL (9-16); Calcium 9.4 mg/dL (8.4-10.2); Carbon Dioxide 28 mmol/L (22-29); Chloride 104 mmol/L (96-108); Cholesterol 201 mg/dL (<200); Estimated Glomerular Filt Rate > 60; Glucose Fasting 94 mg/dL (60-99); HDL Cholesterol 114 mg/dL (>40); LDL Cholesterol Calculated 76 mg/dL (<100); Potassium 4.2 mmol/L (3.3-5.1); Sodium 140 mmol/L (135-145); Triglycerides 57 mg/dL (<150)
[2024-05-25 08:52] LABS: Free T4 (Free Thyroxine) 1.07 ng/dL (0.71-1.85); Thyroid Stimulating Hormone 3.76 uIU/mL (0.32-4.0); Vitamin D 25-OH Total 33.8 ng/mL (>30)
[2024-05-25 09:16] LABS: Alanine Aminotransferase 25 U/L (0-31)
== END 2024-05-25 07:13 | disposition home or self-care (01) ==
LOC: HO.LAB 07:12
PROVIDERS: PCP Internal Medicine; Visit Provider Internal Medicine
DX: Z00.01 Encounter for general adult medical examination with abnormal findings (principal); D72.819 Decreased white blood cell count, unspecified; E03.9 Hypothyroidism, unspecified; Z13.220 Encounter for screening for lipoid disorders; Z13.1 Encounter for screening for diabetes mellitus; Z78.0 Asymptomatic menopausal state
CPT/HCPCS: 36415; 80048; 80061; 82306; 84439; 84443; 84450; 84460; 85025

== ENCOUNTER 2024-06-03 09:44 | Outpatient (AMB) | payer BC, SELFPAY ==
[2024-06-03 10:19] VITALS: BP 136/72; PULSE 65; O2SAT 99; BMI 22.9
--- NOTE | 2024-06-03 10:19 | MHC.PC.OV ---
Vital Signs 06/03/24 10:19 Height 5 ft 6 in Weight 142 lb BMI 22.9 BP 136/72 Blood Pressure Location Rt brachial Position Sitting Pulse 65 Pulse Source Pulse Oximeter Pulse Oximetry (%) 99 Oxygen Delivery Method Room Air Intake Visit Reasons: PE Intake Note: Pt is here today for her PE: Last mammogram 01/22/24, papsmear 02/13/24 and colonoscopy 10/12/20 Allergies Sulfa (Sulfonamide Antibiotics) Allergy (Intermediate, Verified 06/03/24 10:37) Rash cephalexin [From KEFLEX] Allergy (Unknown, Verified 06/03/24 10:37) HIVES methylprednisolone [Medrol] Adverse Reaction (Unknown, Verified 06/03/24 10:37) grandiosity prednisone Adverse Reaction (Unknown, Verified 06/03/24 10:37) grandiosity Medication List - Last Reconciled 06/03/24 by Chari Rabago MD cholecalciferol (vitamin D3) 25 mcg PO DAILY ibuprofen 600 mg PO Q6H PRN levothyroxine 75 mcg PO DAILY@0600 omeprazole magnesium (Prilosec OTC) 20 mg PO DAILY PRN Tobacco use date assessed: 06/03/24 Dental Screening Dental Screen Date: 06/03/24 Did you have a dental visit in the last 12 months?: Yes Did you have a dental problem in the last 6 months where you did not have access to dental care?: No Was dental information given to patient?: Patient has dentist HPI PE HPI Details 58 year-old lady here today for her physical exam. She has hypothyroidism , currently stable and controlled on current dose of levothyroxine 75 mcg daily. Up-to-date with her screening mammogram, last done 01/22/2024, and cervical cancer screening done 02/13/2024 shows dense breasts on mammogram and , goes to [facility]. She is also up-to-date with her screening colonoscopy done in 2020 showed mild sigmoid diverticulosis and internal and external hemorrhoids, done by Dr. Chan, due for a repeat colonoscopy again in 2030. She had a laparoscopic sigmoid resection done by Dr. 09/02/2023 due to recurrent diverticulitis, with good results. Patient now reports normal bowel movements and no recurrences of abdominal pain. She has Multilevel lumbar spondylosis more conspicuous at L3-4, L4-5 and L5-S1 levels likely encroaching the exiting nerve roots at L4 and L5 as seen on MRI done recently. Patient has been having recurrent back pains which she treats with rest, ibuprofen as needed and heat alternating with ice.. FOR[facility]LY [facility], [facility] Medical History (Updated 06/03/24 @ 11:14 by Chari Rabago MD) Spondylosis of lumbar spine Skin cancer screening Family history of breast cancer Dense breast tissue on mammogram Lumbar back pain with radiculopathy affecting left lower extremity C. difficile colitis Back pain GERD (gastroesophageal reflux disease) Tear of left supraspinatus tendon Calcific tendinitis of left shoulder Sigmoid diverticulitis History of diverticulitis of colon Irritable bowel syndrome with constipation and diarrhea Menopause Annual visit for general adult medical examination with abnormal findings Chronic leukopenia SALLY positive Cyst of right breast Narrow angle glaucoma suspect Recurrent cold sores Acquired hypothyroidism Surgical History (Updated 06/03/24 @ 11:14 by Chari Rabago MD) Hx of lumbosacral spine surgery Hx of surgical procedure (~09/02/23) Hx of eye surgery Hx of tonsillectomy H/O colonoscopy Diverticulitis History of back surgery Family History Father Smoker CVD (cardiovascular disease) HTN (hypertension) Mother HTN (hypertension) CVD (cardiovascular disease) Pancreatic cancer Mental health disorder Maternal Grandfather Depression Cervical cancer Maternal Grandmother Alcoholism Paternal Grandfather Alcoholism Paternal Grandmother No problems noted. 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 1. Little interest or pleasure in doing things: not at all 2. Feeling down, depressed, or hopeless: not at all 3. Trouble falling or staying asleep, or sleeping too much: not at all 4. Feeling tired or having little energy: not at all 5. Poor appetite or overeating: not at all 6. Feeling bad about yourself - or that you are a failure or have let yourself or your family down: not at all 7. Trouble concentrating on things, such as reading the newspaper or watching television: not at all 8. Moving or speaking so slowly that other people could have noticed. Or the opposite - being so fidgety or restless that you have been moving around a lot more than usual: not at all 9. Thoughts that you would be better off or of hurting yourself in some way: not at all Total score: 0 Depression Screening Interpretation: Negative Depression Screening Done: Yes 52691 - PHQ-9 Billing: Yes Source: Developed by Drs. Victorino Burroughs, Sara Santos, Brody Rodriguez and colleagues, with an educational tami from [employer]. Thrive Questionnaire Date Thrive assessed: 06/03/24 I am a: Patient What is your living situation today?: I have a steady place to live Within the past 12 months, did the food you bought not last and you didn't have the money to get more?: Never true Within the past 12 months, did you worry whether your food would run out before you got money to buy more?: Never true Do you have trouble paying for medicines?: No Do you have trouble getting transportation to medical appointments?: No Do you have trouble paying your heating and electricity bill?: No Do you have trouble taking care of your child, family member or friend?: No Do you have trouble with day-to-day activities such as bathing, preparing meals, shopping, managing finances, etc.?: No Are you currently unemployed and looking for a job?: No Are you interested in more education?: No Please select the resources that you would like help with: None Currently or been in a relationship where the following occur: No concerns reported THRIVE Score: 0 AUDIT C Alcohol Use Questionnaire (AUDIT-C) 1. How often do you have a drink containing alcohol?: 2-4 times a month 2. How many drinks containing alcohol do you have on a typical day when you are drinking?: 1 or 2 3. How often do you have six or more drinks on one occasion?: Never Total Score: 2 ERICK-7 AMB Questionnaire ERICK-7 Date ERICK - 7 assessed: 06/03/24 Feeling nervous, anxious, or on edge: 0 = Not at all Not being able to stop or control worryin = Not at all Worrying too much about different things: 0 = Not at all Trouble relaxin = Not at all Being so restless that it is hard to sit still: 0 = Not at all Becoming easily annoyed or irritable: 0 = Not at all Feeling afraid as if something awful might happen: 0 = Not at all Total ERICK-7 score (0-4 normal; 5-9 mild; 10-14 moderate; 15-21 severe): 0 Source: Developed by Drs. Victorino Burroughs, Sara Santos, Brody Rodriguez and colleagues, with an educational tami from [employer]. ERICK-7 Assessment Billing ERICK-7 Assessment Tool: ERICK-7 Assessment 61983 Review of Systems Const Denies fatigue, Denies fever(s), Denies headache(s) and Denies weakness Eyes Denies change in vision ENT Reports Normal hearing present, Denies dizziness, Denies headache(s), Denies nasal congestion, Denies nasal discharge and Denies sore throat Card Denies chest pain, Denies lightheadedness, Denies palpitations and Denies dyspnea Resp Denies chest congestion, Denies cough, Denies dyspnea and Denies wheezing GI Denies melena, Denies hematochezia, Denies heartburn and Denies nausea Denies urinary frequency, Denies dysuria and Denies urinary urgency Musc Reports as per HPI Skin/Breast Denies lesions and Denies rash Neuro Reports Normal hearing present, Denies dizziness, Denies headache(s), Denies Sensory deficit (Neuro) and Denies weakness Psych Reports no additional complaints Endo Denies fatigue, Denies polydipsia, Denies polyuria and Denies palpitations Claude/Lymph Denies easy bruising Aller/Immun Denies seasonal rhinorrhea and Denies wheezing Physical exam (Primary Care) Vital Signs: Last Vital Signs Pulse 65 06/03/24 10:19 BP 136/72 06/03/24 10:19 Pulse Ox 99 06/03/24 10:19 Oxygen Delivery Method Room Air 06/03/24 10:19 BMI result Body Mass Index 22.9 Tobacco/Smoking Status: Tobacco use Status Tobacco use date assessed 06/03/24 06/03/24 10:20 Patient Tobacco Use Status Never used Tobacco 06/03/24 10:20 e-Cigarette/Vaping Use Never Used 06/03/24 10:20 PHQ-9: PHQ-9 Score PHQ-9: Total score 0 06/06/24 13:14 Depression Screening Interpretation: Negative Thrive Assessment: Date of Thrive Assessment Date Thrive assessed 06/03/24 06/03/24 10:20 Currently or been in a relationship where the following occur: No concerns reported Const Other: Alert oriented x3, ambulatory normal gait Neck Neck: Yes full ROM, Yes no lymphadenopathy and Yes supple Resp Auscultation: clear to auscultation bilaterally Cardio Other: S1-S2 present regular rate and rhythm GI Other: Normal bowel sounds, soft, nontender with no mass palpated General: Yes no CVA tenderness Back/Spine/Pelvis Back: no CVA tenderness Thoracic/Lumbar Spine: thoraco-lumbar ROM normal and straight leg raise negative bilaterally Skin General skin exam: no rashes or lesions noted Neuro General: tone normal, moves all extremities, Normal light touch and pain sensation and no focal motor deficits Cranial nerves: Yes Normal hearing present Sensory Exam: No Sensory deficit (Neuro) Extrem General: Yes full ROM, Yes no joint enlargement, Yes no pedal edema and Yes normal gait Psych Appearance: grossly normal and well kempt Mental Status: mental status grossly normal Speech and movement: Normal speech and movement present Affect: normal affect Results Reviewed Results Reviewed: Name: Brittanie Chaidez Age/Sex: 58/F : 1965 Unit#: [id number] Attend Dr: Chari Rabago MD Re05/25/24 Status: DEP REF Location: [facility] Disch: SPEC : [id number] PRETTY: 05/25/24 STATUS: COMP REQ : [id number] RECD: 05/25/[address]: Chari Rabago MD COMP: 05/25/24 ENTERED: 05/25/[address]: ORDERED: CBC Auto Diff Test Result Flag Reference WBC 4.2 L 4.8-10.8 X10*3/uL RBC 4.30 4.20-5.50 X10*6/uL HGB 13.5 12.0-16.0 g/dl HCT 40.3 37.0-47.0 % MCV 93.7 80.0-98.0 fL MCH 31.4 27.0-33.0 pg MCHC 33.5 31.0-35.0 g/dl RDW 12.5 11.0-16.0 % PLT 236 160-400 X10*3/uL MPV 9.0 L 9.4-12.3 fL Neut Pct Auto 56.0 45-73 % ImGran Pct Auto 0.2 0.0-0.4 % Lymp Pct Auto 31.9 20-40 % Calhoun Pct Auto 9.5 2-11 % Eos Pct Auto 1.9 0-4 % Baso Pct Auto 0.5 0-2 % NRBC Pct Auto 0.0 0.0-0.2 /100WBC ANC Neut Abs # 2.4 2.0-8.3 x10*3/uL ImGran Abs Auto 0.01 0.00-0.03 X10*3/uL Lymph Abs Auto 1.4 1.2-4.9 X10*3/uL Calhoun Abs Auto 0.4 0.1-1.2 X10*3/uL Eos Abs Auto 0.1 0.0-0.4 X10*3/uL Baso Abs Auto 0.0 0.0-0.2 X10*3/uL NRBC Abs Auto 0.000 0.0-0.012 X10*3/uL Name: Brittanie Chaidez Age/Sex: 58/F : 1965 Unit#: [id number] Attend Dr: Chari Rabago MD Re05/25/24 Status: DEP REF Location: [facility] Disch: SPEC : [id number] PRETTY: 05/25/24 STATUS: COMP REQ : [id number] RECD: 05/25/[address]: Chari Rabago MD COMP: 05/25/24 ENTERED: 05/25/24 DENISE TAVAREZ: ORDERED: Met Prof Fast, AST, ALT, Lipid Panel, Vitamin D 25-OH, Free T4, TSH Test Result Flag Reference Sodium 140 135-145 mmol/L Potassium 4.2 3.3-5.1 mmol/L CL 104 96-108 mmol/L CO2 28 22-29 mmol/L Gap 12 12-20 BUN 19 H 9-16 mg/dL Creat 0.69 0.5-1.4 mg/dL eGFR > 60 Chronic Kidney Disease: Estimated GFR < 60 mL/min/1.73m2 Severe Kidney Disease: Estimated GFR < 15 mL/min/1.73m2 FBS 94 60-99 mg/dL CA 9.4 # 8.4-10.2 mg/dL AST (GOT) 26 5-31 U/L ALT (GPT) 25 0-31 U/L Triglyceride 57 <150 mg/dL Desirable Triglyceride: less than 150 mg/dL Borderline High Triglyceride 150-199 mg/dL High Triglyceride: 200-499 mg/dL Very High Triglyceride: greater than or equal to 5OO mg/dL Cholesterol 201 H <200 mg/dL Desirable Cholesterol: less than 200 mg/dL Borderline High Cholesterol: 200-239 mg/dL High Cholesterol: greater than 239 mg/dL LDL Calculated 76 <100 mg/dL Desirable LDL: less than 100 mg/dL Near Optimal/Above Optimal LDL: 110-129 mg/dL Borderline High LDL: 130-159 mg/dL High LDL: 160-189 mg/dL Very High LDL: greater than or equal to 190 mg/dL HDL 114 >40 mg/dL Desirable HDL: greater than 40 mg/dL Note: This HDL assay may give artificially low results in patients with liver disease. Vit D 25-OH Tot 33.8 >30 ng/mL Health Based Reference Values* < 20 ng/mL Deficient 20-30 ng/mL Insufficient > 30 ng/mL Sufficient *Yamel NAIK. N Engl J Med. 2007;357:266-280 Care must be taken in interpreting Vitamin D results from different laboratories and methodologies. Published data demonstrated that results from patients undergoing hemodialysis may show a negative bias when tested with various automated 25-OH vitamin D assays when compared to LC-MS/MS. When testing samples from patients whose predominant form of Vitamin D is Vitamin D2, such as patients receiving Vitamin D2 supplementation, results that are subtherapeutic should be confirmed with another method such as LC-MS/MS. Free T4 1.07 0.71-1.85 ng/dL TSH 3rd Gen. 3.76 0.32-4.0 uIU/mL Note: A sustained TSH level above 2.5 uIU/mL may warrant further investigation. TSH 3rd Generation ([facility]) Coding Level of Care Code Est Pt Prev Care 40-64y(91373) Diagnoses Annual visit for general adult medical examination with abnormal findings Z00.01 Extremely dense tissue of both breasts on mammography R92.343 Laterality: bilateral Mammographic dense breast tissue type: extremely dense Family history of breast cancer Z80.3 Skin cancer screening Z12.83 Acquired hypothyroidism E03.9 Recurrent cold sores B00.1 Spondylosis of lumbar spine M47.816 Additional Codes ERICK-7 Assessment Billing - ERICK-7 Assessment Tool: ERICK-7 Assessment 86490 ([id number]) PHQ-9 - 30487 - PHQ-9 Billing: Yes ([id number]) Assessment & Plan Assessment & Plan (1) Annual visit for general adult medical examination with abnormal findings: Code(s): Z00.01 - Encounter for general adult medical examination with abnormal findings Category: Medical Plan: Latest fasting lab results reviewed with patient. Showed presence of chronic leukopenia currently asymptomatic, unchanged from previous tests. Continue with regular dental visit every 6 months and regular eye exams, at least every 2 years. Take adequate calcium in diet and vitamin-D 3 at 2000 IU per cap once a day, in addition to weight-bearing exercises to help maintain good muscle tone and weight control. Instructed to do self-breast exam, and , up-to-date with her yearly mammogram which showed dense breast, breast ultrasound bilateral ordered. Up-to-date with her routine cervical cancer screening and pelvic exam, goes to [facility]. Up-to-date with her screening colonoscopy due again in 2030, sees Dr. Caleb Chan.. Up-to-date with her Tdap, reminded to get her shingles vaccine dose 2., reminded to get yearly flu shot and COVID booster (2) Dense breast tissue on mammogram: Code(s): R92.30 - Dense breasts, unspecified Category: Medical Qualifiers: Laterality: bilateral Mammographic dense breast tissue type: extremely dense Qualified Code(s): R92.343 - Mammographic extreme density, bilateral breasts Plan: Ordered breast ultrasound of both breasts due to dense breast tissue on mammogram and positive family history of breast cancer (3) Family history of breast cancer: Code(s): Z80.3 - Family history of malignant neoplasm of breast Category: Medical Plan: Ordered bilateral breast ultrasound (4) Skin cancer screening: Code(s): Z12.83 - Encounter for screening for malignant neoplasm of skin Category: Medical Plan: Referred to dermatology for her routine skin cancer screening (5) Acquired hypothyroidism: Code(s): E03.9 - Hypothyroidism, unspecified Category: Medical Plan: Continue current dose of levothyroxine 75 mcg daily (6) Recurrent cold sores: Code(s): B00.1 - Herpesviral vesicular dermatitis Category: Medical Plan: Takes valacyclovir as needed at the 1st sign of a cold sore (7) Spondylosis of lumbar spine: Code(s): M47.816 - Spondylosis without myelopathy or radiculopathy, lumbar region Category: Medical Plan: Patient knows not to over exert or do any heavy lifting, takes ibuprofen alternating with Tylenol, heat and ice, went low back pain recurs Orders: Orders US breast LT complete 06/03/24 R92.30 - Dense breasts, unspecified, Z80.3 - Family history of malignant neoplasm of breast US breast RT complete 06/03/24 R92.30 - Dense breasts, unspecified, Z80.3 - Family history of malignant neoplasm of breast Referrals Dermatology Referral Z12. - Encounter for screening for malignant neoplasm of skin
== END 2024-06-03 11:11 | disposition home or self-care (01) ==
PROVIDERS: PCP Internal Medicine; Visit Provider Internal Medicine
DX: Z00.01 Encounter for general adult medical examination with abnormal findings (principal); R92.343 Mammographic extreme density, bilateral breasts; Z80.3 Family history of malignant neoplasm of breast; Z12.83 Encounter for screening for malignant neoplasm of skin; E03.9 Hypothyroidism, unspecified; B00.1 Herpesviral vesicular dermatitis; M47.816 Spondylosis without myelopathy or radiculopathy, lumbar region

== ENCOUNTER → 2024-06-03 09:44 | Outpatient (BNVA) | payer BC, SELFPAY | PROVIDERS: PCP Internal Medicine; Visit Provider Internal Medicine | DX: Z00.01 Encounter for general adult medical examination with abnormal findings (principal); R92.343 Mammographic extreme density, bilateral breasts; E03.9 Hypothyroidism, unspecified; B00.1 Herpesviral vesicular dermatitis; M47.816 Spondylosis without myelopathy or radiculopathy, lumbar region; Z80.3 Family history of malignant neoplasm of breast; Z79.899 Other long term (current) drug therapy | CPT/HCPCS: 96127 ==

== ENCOUNTER 2024-06-17 10:40 | Outpatient (REF) | payer BC, SELFPAY ==
--- NOTE | ~2024-06-17 | US_ITS ---
EXAMINATION: US SCREENING ULTRASOUND BREAST, BILATERAL CLINICAL INFORMATION: Dense breasts on mammography. Screening ultrasound. COMPARISON: Outside mammograms 201909/20/2019 08/19/2021. TECHNIQUE: Ultrasound is performed using grayscale imaging and color Doppler. Imaging is performed to include the four quadrants and retroareolar region. Both breasts are imaged. FINDINGS: Right breast: Targeted color Doppler ultrasound in the upper inner quadrant lower inner quadrant lower outer quadrant upper outer quadrant demonstrates normal fibroglandular breast tissue. Scanning in the retroareolar region there is a hypoechoic oval circumscribed solid mass at 1:00 1 cm from the nipple measuring 11 x 6 x 8 mm. Left breast: There is no suspicious finding by ultrasound. There is no solid mass or focal architectural abnormality. US/US breast BI complete IMPRESSION: Left: Negative. Right: Solid mass in the retroareolar region measuring up to 11 mm. Recommend ultrasound-guided core needle biopsy at this time. The findings and recommendations were discussed with the patient the procedure will be scheduled. ASSESSMENT: BI-RADS 4 - Suspicious finding RECOMMENDATION: Biopsy recommended This patient's information was entered into a reminder system with a target due date for their next mammogram. Electronically signed by: Isabell Varma DO 06/18/2024 08:49 AM TAMIA
== END 2024-06-17 10:41 | disposition home or self-care (01) ==
LOC: HO.MAMMO 10:40
PROVIDERS: PCP Internal Medicine; Visit Provider Internal Medicine
DX: R92.30 Dense breasts, unspecified (principal); Z80.3 Family history of malignant neoplasm of breast
CPT/HCPCS: 76641

== ENCOUNTER → 2024-06-17 11:00 | Outpatient (BNV) | payer BC, SELFPAY | PROVIDERS: PCP Internal Medicine; Visit Provider Internal Medicine | DX: N63.41 Unspecified lump in right breast, subareolar (principal) | CPT/HCPCS: 76641 ==

== ENCOUNTER 2024-07-15 08:47 | Outpatient (AMB) | payer BC, SELFPAY ==
[2024-07-15 08:51] VITALS: BP 110/76; PULSE 80; BMI 22.8
--- NOTE | 2024-07-15 08:51 | MHC.OFFVIS ---
Vital Signs 07/15/24 08:51 Height 5 ft 6 in Weight 141 lb BMI 22.8 BP 110/76 Blood Pressure Location Lt brachial Position Sitting Pulse 80 Intake Visit Reasons: US Biopsy Rt Breast 1oclock Retro areoiar Intake Note: I have a lump that is being biopsied. Professional Development Director Required: No Allergies Sulfa (Sulfonamide Antibiotics) Allergy (Intermediate, Verified 07/15/24 08:58) Rash cephalexin [From KEFLEX] Allergy (Unknown, Verified 07/15/24 08:58) HIVES methylprednisolone [Medrol] Adverse Reaction (Unknown, Verified 07/15/24 08:58) grandiosity prednisone Adverse Reaction (Unknown, Verified 07/15/24 08:58) grandiosity Medication List - Last Reconciled 07/15/24 by Eder Deluna RN cholecalciferol (vitamin D3) 25 mcg PO DAILY ibuprofen 600 mg PO Q6H PRN levothyroxine 75 mcg PO DAILY@0600 omeprazole magnesium (Prilosec OTC) 20 mg PO DAILY PRN HPI Comments Details: 59-year-old female patient presenting following a screening ultrasound of the breast which revealed a 11 x 6 x 8 mm density in the right breast in the 1 o'clock position, 1 cm from the nipple. This was felt to be solid and suspicious for malignancy. She is scheduled for an ultrasound-guided core biopsy later today at the [facility]. She denies a previous history of breast cancer or breast surgery. She did have a left breast cyst drained and he years ago which was benign. Her most recent mammogram performed at [facility] on 01/22/2024 revealed no suspicious findings in either breast and annual screening was recommended (BI-RADS 2). Her menarche was at age 11. She is in her 1st child was born she was 26. Her last menstrual period was when she was 48. She denies any previous genetic testing but does report her sister was tested after her mother passed from pancreatic cancer. Her sister was negative for the breast cancer genes. Her family history is negative for breast cancer. Mallory remaining lifetime risk of breast cancer his calculated at 7.3%. [facility] Medical History Spondylosis of lumbar spine Skin cancer screening Family history of breast cancer Dense breast tissue on mammogram Lumbar back pain with radiculopathy affecting left lower extremity C. difficile colitis Back pain GERD (gastroesophageal reflux disease) Tear of left supraspinatus tendon Calcific tendinitis of left shoulder Sigmoid diverticulitis History of diverticulitis of colon Irritable bowel syndrome with constipation and diarrhea Menopause Annual visit for general adult medical examination with abnormal findings Chronic leukopenia SALLY positive Cyst of right breast Narrow angle glaucoma suspect Recurrent cold sores Acquired hypothyroidism Surgical History Hx of lumbosacral spine surgery Hx of surgical procedure (~09/02/23) Hx of eye surgery Hx of tonsillectomy H/O colonoscopy Diverticulitis History of back surgery Family History Father Smoker CVD (cardiovascular disease) Mother CVD (cardiovascular disease) Pancreatic cancer, Onset Age: 58 Mental health disorder Maternal Grandfather Depression Maternal Grandmother Alcoholism Paternal Grandfather Alcoholism Paternal Grandmother No problems noted. 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 [email or web address] Cognitive needs: No Hearing needs: No Vision needs: Yes Female Reproductive History Menstrual Age of Menarche: 11 Date of last menstrual period: 07/15/13 Date of menopause: 07/15/13 Age of menopause: 48 Total pregnancies: 2 Full term: 2 Other: age of first 26 Review of Systems Const All systems reviewed & are unremarkable except as noted in HPI and below Physical Exam Vital Signs: BMI result Body Mass Index 22.8 Const General: cooperative and no acute distress Nutritional Appearance: well nourished Orientation/consciousness: patient oriented x3 Limitations: no limitations HEENT Head: Yes normocephalic and Yes atraumatic Ears: hearing grossly normal bilaterally Chest Other: Left breast: No skin change, no nipple retraction, no nipple discharge, no palpable mass, no enlarged lymph nodes. Right breast: No skin change, no nipple retraction, no nipple discharge, no palpable mass, no enlarged lymph nodes Resp Effort & Inspection: normal respiratory effort, no audible wheezes, no cough and no respiratory distress Cardio Jugular venous distension: no JVD GI Inspection: Yes normal to inspection Skin Other: Warm, dry, no rash Neuro General: patient oriented x3 Extrem General: Yes no clubbing, cyanosis or edema Assessment & Plan Assessment & Plan (1) Abnormal ultrasound of breast: Code(s): R92.8 - Other abnormal and inconclusive findings on diagnostic imaging of breast Category: Medical Plan 59-year-old female patient presenting with a recent abnormal breast ultrasound of the right breast. She was found to have an 11 x 6 x 8 mm density in the right breast at the 1 o'clock position, 1 cm from the nipple. She is scheduled for a [facility]. Examination today revealed no suspicious findings in either side with no enlarged lymph nodes. I recommended follow-up examination in 1 week to review the pathology results. She is welcome to call sooner for any new concerns. Orders: Orders US breast ndl core biopsy RT Today R92.8 - Other abnormal and inconclusive findings on diagnostic imaging of breast Coding Level of Care Code New Pt Level 4 (00031) Diagnoses Abnormal ultrasound of breast R92.8
== END 2024-07-15 09:29 | disposition home or self-care (01) ==
PROVIDERS: PCP Internal Medicine; Visit Provider Surgery
DX: R92.8 Other abnormal and inconclusive findings on diagnostic imaging of breast (principal)
CPT/HCPCS: 99204

== ENCOUNTER 2024-07-15 09:41 | Outpatient (REF) | payer BC, SELFPAY ==
--- NOTE | ~2024-07-15 | MM_ITS ---
PROCEDURE: ULTRASOUND-GUIDED RIGHT BREAST BIOPSY CLINICAL INFORMATION: Solid mass right retroareolar region at 1:00 seen on screening breast ultrasound. COMPARISON: Comparison is made with available prior examinations. TECHNIQUE: The details of the procedure, as well as the risks, benefits, and alternatives to the procedure were explained to the patient in detail and all of her questions were answered, after which, written informed consent was obtained. PROCEDURE: Prior to the procedure, sonography revealed solid mass at 1:00 in the retroareolar region. A time-out was performed, the lesion intended for biopsy was targeted and the skin of the right breast was then prepped and draped in the usual sterile fashion. Using sonographic guidance, sterile technique, and 1% lidocaine without epinephrine for local anesthesia, a total of 5 cores were obtained through the targeted area with a 14-gauge biopsy device. At the completion of tissue sampling, a single butterfly metallic clip was deposited at the biopsy site. An appropriate sample was obtained. The postprocedure 2-view direct digital mammogram reveals satisfactory positioning of the biopsy clip. The patient tolerated the procedure well and, after assuring adequate hemostasis, was discharged in good condition after reviewing postbiopsy breast care instructions. Final pathology results are pending. MM/MM tomosynthesis diagnostic RT IMPRESSION: 1. Uncomplicated sonographically-guided core biopsy of the right breast. The 2-view direct digital postprocedure mammogram reveals satisfactory positioning of the biopsy clip. 2. Final pathology results are pending. A separate report with final recommendations will be issued once these results are made available. Electronically signed by: Isabell Varma DO 07/15/2024 10:58 AM TAMIA
[2024-07-15] MEDS: Sodium Bicarbonate 8.4% 50 MEQ/50 ML VIAL SUBCUT (10:37)
[2024-07-15] MEDS: Lidocaine HCl 1 % 20 ML VIAL 9 ML SUBCUT (10:38)
== END 2024-07-15 09:42 | disposition home or self-care (01) ==
LOC: HO.MAMMO 09:41
PROVIDERS: PCP Internal Medicine; Visit Provider Surgery
DX: R92.8 Other abnormal and inconclusive findings on diagnostic imaging of breast (principal)
CPT/HCPCS: 19083; 77061; 77065; 88305; A4648; J2003

== ENCOUNTER → 2024-07-15 10:00 | Outpatient (BNV) | payer BC, SELFPAY | PROVIDERS: PCP Internal Medicine; Visit Provider Internal Medicine | DX: N63.12 Unspecified lump in the right breast, upper inner quadrant (principal) | CPT/HCPCS: 19083; 77065 ==

== ENCOUNTER 2024-07-22 15:14 | Outpatient (AMB) | payer BC, SELFPAY ==
--- NOTE | 2024-07-22 15:35 | MHC.OFFVIS ---
Vital Signs 07/22/24 15:38 Height 5 ft 6 in Weight 138 lb 14.259 oz BMI 22.4 Pulse 72 Intake Visit Reasons: us bx RESULTS rt breast 10 o'clock retro aerolar Intake Note: Patient is seen in office for ultrasound biopsy RESULTS right breast 10 o'clock retroaerolar. 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 This was felt to be solid and suspicious for malignancy. She denies a previous history of breast cancer or breast surgery. She did have a left breast cyst drained years ago which was benign. Her most recent mammogram performed at [facility] on 01/22/2024 revealed no suspicious findings in either breast and annual screening was recommended (BI-RADS 2). Her menarche was at age 11. She is in her 1st child was born she was 26. Her last menstrual period was when she was 48. She denies any previous genetic testing but does report her sister was tested after her mother passed from pancreatic cancer. Her sister was negative for the breast cancer genes. Her family history is negative for breast cancer. Charle[place]Normazick remaining lifetime risk of breast cancer his calculated at 7.3%. She underwent an ultrasound-guided core biopsy on 07/15/2024. Pathology revealed breast tissue with dense stromal fibrosis, mild chronic inflammation and scattered fibrocystic changes; no atypia or malignancy is identified. This was reviewed by Radiology and annual screening mammography recommended. The patient was provided with a copy of the pathology results. [facility] Medical History Spondylosis of lumbar spine Skin cancer screening Family history of breast cancer Dense breast tissue on mammogram Lumbar back pain with radiculopathy affecting left lower extremity C. difficile colitis Back pain GERD (gastroesophageal reflux disease) Tear of left supraspinatus tendon Calcific tendinitis of left shoulder Sigmoid diverticulitis History of diverticulitis of colon Irritable bowel syndrome with constipation and diarrhea Menopause Annual visit for general adult medical examination with abnormal findings Chronic leukopenia SALLY positive Cyst of right breast Narrow angle glaucoma suspect Recurrent cold sores Acquired hypothyroidism Surgical History Hx of lumbosacral spine surgery Hx of surgical procedure (~09/02/23) Hx of eye surgery Hx of tonsillectomy H/O colonoscopy Diverticulitis History of back surgery Family History Father Smoker CVD (cardiovascular disease) Mother CVD (cardiovascular disease) Pancreatic cancer, Onset Age: 58 Mental health disorder Maternal Grandfather Depression Maternal Grandmother Alcoholism Paternal Grandfather Alcoholism Paternal Grandmother No problems noted. 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 [employer] Cognitive needs: No Hearing needs: No Vision needs: Yes Female Reproductive History Menstrual Age of Menarche: 11 Date of menopause: 07/15/13 Physical Exam Vital Signs: Last Vital Signs Pulse 72 07/22/24 15:38 BMI result Body Mass Index 22.4 Const Other: Exam deferred Assessment & Plan Assessment & Plan (1) Abnormal ultrasound of breast: Code(s): R92.8 - Other abnormal and inconclusive findings on diagnostic imaging of breast Category: Medical Plan 59-year-old female patient presenting with a recent ultrasound which revealed a suspicious density in the right breast at the 1 o'clock position. She returns today following ultrasound-guided core biopsy on 07/15/2024. Pathology revealed benign breast tissue without atypia or malignancy. Routine screening mammography is recommended. She should follow up as needed. Coding Level of Care Code Est Pt Level 3 (23550) Diagnoses Abnormal ultrasound of breast R92.8
[2024-07-22 15:38] VITALS: PULSE 72; BMI 22.4
== END 2024-07-22 15:41 | disposition home or self-care (01) ==
PROVIDERS: PCP Internal Medicine; Visit Provider Surgery
DX: R92.8 Other abnormal and inconclusive findings on diagnostic imaging of breast (principal)
CPT/HCPCS: 99213

== ENCOUNTER 2024-08-13 14:00 | Outpatient (AMB) | payer BC, SELFPAY ==
--- NOTE | 2024-08-13 14:15 | MHC.OFFWIV ---
Intake Vital Signs 08/13/24 14:16 Weight 140 lb BP 120/80 Blood Pressure Location Rt brachial Position Sitting Pulse 66 Pulse Source Pulse Oximeter Temp 98.2 F Temp Source Oral Pulse Oximetry (%) 98 Oxygen Delivery Method Room Air Intake Visit Reasons: EP fever, headache, nauseous Intake Note: Patient here for feverish, headaches, nausea and stomach ache. Patient Tobacco Use Status: Never used Tobacco Allergies Sulfa (Sulfonamide Antibiotics) Allergy (Intermediate, Verified 08/13/24 14:17) Rash cephalexin [From KEFLEX] Allergy (Unknown, Verified 08/13/24 14:17) HIVES methylprednisolone [Medrol] Adverse Reaction (Unknown, Verified 08/13/24 14:17) grandiosity prednisone Adverse Reaction (Unknown, Verified 08/13/24 14:17) grandiosity Do you need a note to return to daycare/school/sports/work: Yes HPI HPI Comments History of Present Illness Details History of Present Illness - The patient is a 59-year-old female presenting with symptoms of viral gastroenteritis. - Symptoms began at midnight with vomiting, diarrhea, stomach cramps, and fever, which were managed initially with acetaminophen. - There was a recent requirement to cancel a planned trip, a cruise, due to ongoing symptoms. - The patient previously had a severe cold with symptoms extending from the head to chest, which has since resolved. - Current skin lesions raise suspicion of shingles, particularly relevant given her previous episode of shingles and stress-induced oral sores. - The patient discloses participation in cruise travel previously, where she contracted gastrointestinal and COVID illnesses, thus concerned about contagion and travel risks. Physical Exam General: Cooperative, healthy appearing, comfortable, no acute distress and well developed Orientation: Patient oriented x3 Limitations: No limitations Head: Normal to inspection Ears: Hearing grossly normal bilaterally Nose: Normal Nxternal nose present Face and sinus: Normal facial exam Eyes: Appearance normal, both eyes and all related structures Neck: Normal visual inspection and Yes full ROM Respiratory: Normal respiratory effort and able to speak in complete sentences. Skin: No rashes or lesions noted Neuro: Patient oriented x3 Extremities: Normal to inspection [facility] Medical History Spondylosis of lumbar spine Skin cancer screening Family history of breast cancer Dense breast tissue on mammogram Lumbar back pain with radiculopathy affecting left lower extremity C. difficile colitis Back pain GERD (gastroesophageal reflux disease) Tear of left supraspinatus tendon Calcific tendinitis of left shoulder Sigmoid diverticulitis History of diverticulitis of colon Irritable bowel syndrome with constipation and diarrhea Menopause Annual visit for general adult medical examination with abnormal findings Chronic leukopenia SALLY positive Cyst of right breast Narrow angle glaucoma suspect Recurrent cold sores Acquired hypothyroidism Surgical History Hx of lumbosacral spine surgery Hx of surgical procedure (~09/02/23) Hx of eye surgery Hx of tonsillectomy H/O colonoscopy Diverticulitis History of back surgery Family History Father Smoker CVD (cardiovascular disease) Mother CVD (cardiovascular disease) Pancreatic cancer, Onset Age: 58 Mental health disorder Maternal Grandfather Depression Maternal Grandmother Alcoholism Paternal Grandfather Alcoholism Paternal Grandmother No problems noted. 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 [employer] Cognitive needs: No Hearing needs: No Vision needs: Yes Female Reproductive History Menstrual Age of Menarche: 11 Date of menopause: 07/15/13 Review of Systems Const All systems reviewed & are unremarkable except as noted in HPI and below Physical Exam Vital Signs: Last Vital Signs Temp 98.2 F 08/13/24 14:16 Pulse 66 08/13/24 14:16 BP 120/80 08/13/24 14:16 Pulse Ox 98 08/13/24 14:16 Oxygen Delivery Method Room Air 08/13/24 14:16 Assessment & Plan Assessment & Plan (1) Viral gastroenteritis: Code(s): A08.4 - Viral intestinal infection, unspecified Plan: Filled out paperwork for patient as she was supposed to go on a cruise and with a contagious viral GI bug, she should not go on the cruise so I filled out paperwork just support this. Documentation for a travel deferment due to the illness is warranted, considering symptom contagion risk; a follow-up in a week aligns with symptom recovery duration. Recommendations regarding travel contingencies should be clarified for the patient's future vacation planning. The management for the patient's viral gastroenteritis requires addressing hydration and dietary modulation to alleviate symptoms. Fever can continue to be managed with acetaminophen. The cutaneous manifestation suspected to be Herpes Zoster should be observed for further development, ensuring vigilance in case of any ophthalmologic involvement due to the lesion location. Stress-induced oral lesions are noted for monitoring, but not of acute concern at present. Previous respiratory infection symptoms are resolved and need no specific intervention. Patient was informed and verbally consented to the use of an ambient scribe for clinic note documentation during this visit. (2) Contagious disease: Code(s): B99.9 - Unspecified infectious disease Plan: as above Coding Level of Care Code Est Pt Level 3 (91442) Diagnoses Viral gastroenteritis A08.4 Contagious disease B99.9
[2024-08-13 14:16] VITALS: BP 120/80; PULSE 66; TEMP 36.8; O2SAT 98
== END 2024-08-13 15:56 | disposition home or self-care (01) ==
PROVIDERS: PCP Internal Medicine; Visit Provider Physician Assistant
DX: A08.4 Viral intestinal infection, unspecified (principal); B99.9 Unspecified infectious disease

== ENCOUNTER 2024-09-04 10:23 | Outpatient (REF) | payer BC, SELFPAY ==
[2024-09-04 13:16] LABS: Leukocytes Stool Qualitative NEGATIVE (NEGATIVE)
[2024-09-11 01:10] LABS: Pancreatic Elastase-1 537 mcg/g (>200)
== END 2024-09-04 10:24 | disposition home or self-care (01) ==
LOC: HO.LAB 10:23
PROVIDERS: PCP Internal Medicine; Visit Provider Internal Medicine
DX: R19.5 Other fecal abnormalities (principal); Z90.49 Acquired absence of other specified parts of digestive tract
CPT/HCPCS: 82656; 89055

== ENCOUNTER 2024-12-17 10:22 | Outpatient (REF) | payer BC, SELFPAY ==
--- OUTSIDE RECORDS SUMMARY | 2024-12-17 10:42 | XMS_ITS | Encounter Summary ---
Author Organization [facility] Address [address] [place] [id number] Phone Care Team Providers Care Projection Engineer Name Role Phone Chari Rabago MD Primary Care Provider Unavailable Encounter Details Date Type Department Care Team (Late st Contact Info) Description 06/17/2023 Procedure Pass [facility] Admitting Dept Virtual Department [address] [place] [address] Social History Tobacco Use Types Packs/Day Years Used Date Smoking Tobacco: Never Smokeless Tobacco: Never Education Answer Date Recorded Are you interested in more education? Not on chaitanya e 09/27/2022 Are you concerned about learning? Not on file 09/27/2022 No 09/27/2022 No 09/27/2022 Digital Access Answer Date Recorded No 10/26/2022 No 10/26/2022 No 10/26/2022 Reliable internet access at home? Not on file 10/26/2022 Device with a working camera? Not on file Comments Unknown Sex and Gender Information Value Date Recorded Sex Assigned at Not on file Legal Sex Female 9:43 PM EDT Gender Identity Not on file Sexual Orientation Not on file documented as of this encounter Plan of Treatment Not on file documented as of this encounter Visit Diagnoses Not on filedocumented in this encounter Care Teams Projection Engineer Relationship Specialty Start Date End Date Chari Rabago MD PCP - General Internal Medicine 07/01/22 documented as of this encounter Additional Source Comments The information contained in this document represents components of the legal health record. It is not the complete legal health record.[facility]
== END 2024-12-17 10:23 | disposition home or self-care (01) ==
LOC: HO.MAMMO 10:22
PROVIDERS: PCP Internal Medicine; Visit Provider Internal Medicine
DX: Z13.89 Encounter for screening for other disorder (principal)

== ENCOUNTER 2025-03-19 15:13 | Emergency (ER) | payer BC, SELFPAY ==
--- NOTE | ~2025-03-19 | US_ITS ---
CLINICAL HISTORY: Ovarian Torsion US pelvis transabdominal and transvaginal with Doppler Comparison: CT/REG/SR - CT ABDOMEN PELVIS W IV CON - 03/19/25 21:07 EDT Findings: Transabdominal scanning performed for overall anatomy. Transvaginal scanning performed for additional detail. Anteverted uterus is 6.8 cm length. Normal myometrium. No endometrial lesion, 2 mm thickness. Right ovary 1.0 x 0.6 x 0.9 cm. Left ovary 1.7 x 0.9 x 0.9 cm. Normal color Doppler with arterial/venous spectral tracing of the right ovary normal arterial tracing of the left ovary. Prominent left periuterine vessels, when correlating to the earlier CT there are asymmetrically enlarged left gonadal veins with narrowing of the left renal vein between the aorta and SMA suggesting nutcracker syndrome. No free fluid. IMPRESSION: No acute findings. No evidence of ovarian torsion. This document has been electronically signed by: Chris Bustos MD on 03/20/2025 01:44:06
--- NOTE | ~2025-03-19 | CT_ITS ---
CLINICAL HISTORY: diverticulitis CT abdomen and pelvis with contrast Comparison: CT/REG/SR - CT ABDOMEN PELVIS W IV CON - 07/18/23 05:18 EST Findings: Linear scarring in the left lower lobe. Liver, gallbladder, pancreas, spleen, and adrenal glands are within normal limits. No hydronephrosis. Symmetric contrast enhancement of the kidneys. Right lower pole cyst. Nonobstructing calculus in the right kidney. Partial colectomy. Few colonic diverticula without acute inflammation. No bowel obstruction, pneumatosis or pneumoperitoneum. Abdominal aorta is normal in caliber. Portal venous system is patent. No enlarged abdominopelvic lymph nodes. Pelvic contents unremarkable. Normal appendix. The bones are intact. IMPRESSION: 1. No acute intraabdominal or pelvic findings. This document has been electronically signed by: Chris Bustos MD on 03/19/2025 22:31:36
[2025-03-19 15:17] VITALS: BP 168/70; PULSE 87; RESP 20; TEMP 37; O2SAT 97; BMI 21.5
[2025-03-19 16:17] LABS: MANUAL DIFF FLAG NO
[2025-03-19 16:24] LABS: Hematocrit 35.8 % (37.0-47.0); Hemoglobin 12.3 g/dl (12.0-16.0); Imm Gran Abs Auto 0.01 X10*3/uL (0.00-0.03); Imm Gran Pct Auto 0.2 % (0.0-0.4); Lymphocytes Absolute Auto 1.2 X10*3/uL (1.2-4.9); Mean Corpuscular HGB Conc 34.4 g/dl (31.0-35.0); Mean Corpuscular Hemoglobin 31.1 pg (27.0-33.0); Mean Corpuscular Volume 90.6 fL (80.0-98.0); NRBC Abs Auto 0.000 X10*3/uL (0.0-0.012); NRBC Pct Auto 0.0 /100WBC (0.0-0.2); Platelet Count 199 X10*3/uL (160-400); Red Blood Count 3.95 X10*6/uL (4.20-5.50); White Blood Count 5.6 X10*3/uL (4.8-10.8)
[2025-03-19 16:27] LABS: Appearance Urine Clear; Glucose Urine UA Negative (Negative); PH 6.5 (5.0-9.0); Specific Gravity - Urine <= 1.005 (1.005-1.025); UMIC TRIGGER UACC YES
[2025-03-19 16:49] LABS: Alanine Aminotransferase 19 U/L (0-31); Albumin Level 4.7 g/dL (3.5-5.0); Anion Gap 13 (12-20); Aspartate Amino Transferase 27 U/L (5-31); Blood Urea Nitrogen 15 mg/dL (9-16); Calcium 9.4 mg/dL (8.4-10.2); Carbon Dioxide 25 mmol/L (22-29); Chloride 106 mmol/L (96-108); Creatinine Clr Calc Pharmacy 90.6; Estimated Glomerular Filt Rate > 60; Lipase 13 U/L (8-78); Potassium 3.6 mmol/L (3.3-5.1); Sodium 140 mmol/L (135-145); Total Protein 7.4 g/dL (6.5-8.0)
[2025-03-19 17:29] LABS: Alkaline Phosphatase 39 U/L (39-117)
[2025-03-19 17:54] LABS: UACC Culture Trigger YES
--- NOTE | 2025-03-19 19:08 | ED_ITS ---
HPI - General Adult General Chief complaint: Abdominal Pain Stated complaint: Diverticulitis Time Seen by Provider: 03/19/25 19:08 Source: patient Mode of arrival: ambulatory Limitations: no limitations History of Present Illness ED Provider: Dr. Perry HPI narrative: 59-year-old female history of diverticulitis presented hospital today for evaluation of left lower quadrant abdominal pain. Patient does have history of diverticulitis requiring colectomy in the past. Denies any dysuria denies any vaginal discharge. No fever. She does endorse some nausea associated with this. Related Data Home Medications ?Medication ?Instructions ?Recorded ?Confirmed cholecalciferol (vitamin D3) 25 25 mcg PO DAILY 07/15/24 mcg (1,000 unit) capsule omeprazole magnesium 20 mg 20 mg PO DAILY PRN Acid Ref lux 08/21/23 07/15/24 tablet,delayed release (Prilosec OTC) Previous Rx's ?Medication ?Instructions ?Recorded ibuprofen 600 mg tablet 600 mg PO Q6H PRN pain #60 t abs 11/02/24 levothyroxine 75 mcg tablet 75 mcg PO DAILY@0600 #90 t abs 02/16/25 ciprofloxacin HCl 500 mg tablet 500 mg PO Q12H 7 days #14 tabs 03/20/25 Allergies Allergy/AdvReac Type Severity Reaction Status Date / Time Sulfa (Sulfonamide Allergy Intermediate Rash Verified 03/19/25 15:19 Antibiotics) cephalexin (From KEFLEX) Allergy Unknown HIVES Verified 03/19/25 15:19 methylprednisolone (Medrol) AdvReac Unknown grandiosity Verified 03/19/25 15:19 prednisone AdvReac Unknown grandiosity Verified 03/19/25 15:19 Review of Systems 2 Review of Systems: Pertinent review of systems as mentioned in HPI. All other system otherwise negative. [facility] Past Medical History [facility] Narrative: Medical history as mentioned in HPI Medical History Spondylosis of lumbar spine Skin cancer screening Family history of breast cancer Dense breast tissue on mammogram Lumbar back pain with radiculopathy affecting left lower extremity C. difficile colitis Back pain GERD (gastroesophageal reflux disease) Tear of left supraspinatus tendon Calcific tendinitis of left shoulder Sigmoid diverticulitis History of diverticulitis of colon Irritable bowel syndrome with constipation and diarrhea Menopause Annual visit for general adult medical examination with abnormal findings Chronic leukopenia SALLY positive Cyst of right breast Narrow angle glaucoma suspect Recurrent cold sores Acquired hypothyroidism Surgical History Hx of lumbosacral spine surgery Hx of surgical procedure (~09/02/23) Hx of eye surgery Hx of tonsillectomy H/O colonoscopy Diverticulitis History of back surgery Family History Family History Father Smoker CVD (cardiovascular disease) Mother CVD (cardiovascular disease) Pancreatic cancer, Onset Age: 58 Mental health disorder Maternal Grandfather Depression Maternal Grandmother Alcoholism Paternal Grandfather Alcoholism Paternal Grandmother No problems noted. 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3 F 98.3 F Pulse Rate 87 68 68 Respiratory Rate 20 16 16 Blood Pressure 168/70 H 147/65 H 147/65 H Pulse Oximetry 97 98 98 Oxygen Delivery Method Room Air Room Air Room Air BMI result Body Mass Index 21.5 Medications Administered Discontinued Medications Generic Name Dose Route Start Last Admin Trade Name Freq PRN Reason Stop Dose Admin Sodium Chloride 1,000 mls @ 999 mls/hr 03/19/25 19:45 03/20/25 00:10 Ns IV 03/19/25 20:45 Infused .Q1H1M KRISTINA Infusion Sodium Chloride 1,000 mls @ 999 mls/hr 03/19/25 20:00 03/19/25 22:17 Ns IV 03/19/25 21:00 Not Given .Q1H1M KRISTINA Iohexol 100 ml 03/19/25 21:17 03/19/25 21:19 Iohexol 350 Mg/Ml 100 Ml Infus..Btl IV 03/19/25 21:18 85 ml ONCE ONE Administration Morphine Sulfate 4 mg 03/19/25 19:57 03/19/25 21:24 Morphine Sulfate 4 Mg/Ml Cartridge IVPUSH 03/19/25 19:58 4 mg ONCE ONE Administration Protocol Morphine Sulfate 4 mg 03/19/25 23:06 03/19/25 23:21 Morphine Sulfate 4 Mg/Ml Cartridge IVPUSH 03/19/25 23:07 4 mg ONCE ONE Administration Protocol Ondansetron HCl 4 mg 03/19/25 19:41 03/19/25 21:24 Ondansetron Hcl 4 Mg/2 Ml Vial IVPUSH 03/19/25 19:42 4 mg ONCE ONE Administration Ondansetron HCl 4 mg 03/19/25 19:57 03/19/25 22:01 Ondansetron Hcl 4 Mg/2 Ml Vial IVPUSH 03/19/25 19:58 Not Given ONCE ONE Medical Decision Making Medical Decision Making [facility] Narrative: 59-year-old female presented hospital today for left lower quadrant pain for the past couple of weeks. Abdominal lab work were obtained. No sign of leukocytosis, patient's chemistries unremarkable, patient's UA does show small leuk esterase. Patient's CT imaging did not show any signs of acute intra-abdominal pathology. I did obtain a ultrasound to rule out ovarian torsion. No sign of ovarian torsion on ultrasound. Patient does have a follow up with her OBGYN doctor. We will plan to discharge patient does time. 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 This was discussed with the patient. CT imaging and ultrasound report was printed and handed over to the patient. We will plan to discharge patient at this time. We will plan to start her on a course of ciprofloxacin to take for possible UTI. Lab Data MDM Lab Attestation statement: I reviewed the patient's lab results. 03/19/25 15:57 03/19/25 15:57 Labs: Lab Results 03/19/25 03/19/25 Range/Units 15:57 16:02 WBC 5.6 (4.8-10.8) X10*3/uL RBC 3.95 L (4.20-5.50) X10*6/uL Hgb 12.3 (12.0-16.0) g/dl Hct 35.8 L (37.0-47.0) % MCV 90.6 (80.0-98.0) fL MCH 31.1 (27.0-33.0) pg MCHC 34.4 (31.0-35.0) g/dl RDW 12.3 (11.0-16.0) % Plt Count 199 (160-400) X10*3/uL MPV 9.1 L (9.4-12.3) fL Immature Gran % (Auto) 0.2 (0.0-0.4) % Neut % (Auto) 65.1 (45-73) % Lymph % (Auto) 20.5 (20-40) % [place] % (Auto) 11.9 H (2-11) % Eos % (Auto) 2.1 (0-4) % Baso % (Auto) 0.2 (0-2) % Lymph # (Auto) 1.2 (1.2-4.9) X10*3/uL [place] # (Auto) 0.7 (0.1-1.2) X10*3/uL Eos # (Auto) 0.1 (0.0-0.4) X10*3/uL Baso # (Auto) 0.0 (0.0-0.2) X10*3/uL Abs Immat Gran (auto) 0.01 (0.00-0.03) X10*3/uL Absolute Neuts (auto) 3.7 (2.0-8.3) x10*3/uL Absolute Nucleated RBC 0.000 (0.0-0.012) X10*3/uL Nucleated RBC % (auto) 0.0 (0.0-0.2) /100WBC Sodium 140 (135-145) mmol/L Potassium 3.6 (3.3-5.1) mmol/L Chloride 106 (96-108) mmol/L Carbon Dioxide 25 (22-29) mmol/L Anion Gap 13 (12-20) BUN 15 (9-16) mg/dL Creatinine 0.61 (0.5-1.4) mg/dL Estim Creat Clear Calc 90.6 Estimated GFR > 60 Random Glucose 114 (60-115) mg/dL Calcium 9.4 (8.4-10.2) mg/dL Total Bilirubin 0.7 (0.0-1.0) mg/dL AST 27 (5-31) U/L ALT 19 (0-31) U/L Alkaline Phosphatase 39 (39-117) U/L Total Protein 7.4 (6.5-8.0) g/dL Albumin 4.7 (3.5-5.0) g/dL Lipase 13 (8-78) U/L Urine Color Yellow Urine Appearance Clear Urine pH 6.5 (5.0-9.0) Ur Specific [place] <= 1.005 (1.005-1.025) Urine Protein Negative (Neg-Trace) mg/dL Urine Glucose (UA) Negative (Negative) mg/dL Urine Ketones Trace (Negative) mg/dL Urine Blood Negative (Negative) Urine Nitrite Negative (Negative) Ur Leukocyte Esterase Small (1+) H (Negative) Urine RBC 0-2 (0-2) /HPF Urine WBC 0-5 (0-5) /HPF Ur Squamous Epith Cells 0-2 (0-2) /HPF Urine Bacteria None Seen (None Seen) Hyaline Casts 0-2 (0-2) /LPF Independent Interpretation I performed an independent interpretation of an: Ultrasound and CT Scan Radiology Impression Discussion of test interpretation with radiology: I have reviewed the radiologist's reading. Prescription Management I considered prescription management with: Antibiotic Discharge Plan Discharge Clinical Impression: Left lower quadrant abdominal pain Patient Disposition: Home, Self-Care Prescriptions: New ciprofloxacin HCl 500 mg tablet 500 mg PO Q12H 7 Days Qty: 14 0RF No Action ibuprofen 600 mg tablet 600 mg PO Q6H PRN (Reason: pain) Qty: 60 0RF levothyroxine 75 mcg tablet 75 mcg PO DAILY@0600 Qty: 90 0RF omeprazole magnesium [Prilosec OTC] 20 mg Tablet,Delayed Release (Dr/Ec) 20 mg PO DAILY PRN (Reason: Acid Reflux) cholecalciferol (vitamin D3) 25 mcg (1,000 unit) capsule 25 mcg PO DAILY Interventions: ED Discharge Assessment Last Done: 03/20/25 03:00 Discharge Date/Time: 03/20/25 02:00 Print Language: Armenian
--- OUTSIDE RECORDS SUMMARY | 2025-03-19 19:32 | XMS_ITS | Clinical Summary ---
Author Organization [facility] Address [address] [address] Phone Care Team Providers Care Architecture Professor Name Role Phone Chari Rabago MD Primary Care Provider Allergies Active Allergy Reactions Criticality Noted Date Comments Cephalexin 05/17/2019 Nitrofurantoin Monohyd/M-Cryst 11/17 Medications polyethylene glycol 3350 (MIRALAX ORAL) Take 17 g by mouth. 02/12/2022 Active levothyroxine (SYNTHROID, LEVOTHROID) 75 MCG tablet 10/02/2022 Active Active Problems Problem Noted Date Diagnosed Date Asthma 11/17/2022 11/17/2022 Atrophic vaginitis 11/17/2022 11/17/2022 Cyst of breast, diffuse fibrocystic 11/17/2022 11/17/2022 Varicella 11/17/2022 11/17/2022 Low back pain 11/17/2022 11/17/2022 Hypothyroid 11/17/2022 11/17/2022 Social History Tobacco Use Types Packs/Day Years [...] on file Sexual Orientation Not on file Last Filed Vital Signs Vital Sign Reading Time Taken Comments Blood Pressure 136/78 11/17/2022 12:28 PM EDT Pulse 73 11/17/2022 12:28 PM EDT Temperature 36.4 C (97.6 F) 11/17/2022 12:28 PM EDT Respiratory Rate 17 11/17/2022 12:28 PM EDT Oxygen Saturation 99% 11/17/2022 12:28 PM EDT Inhaled Oxygen Concentration - - Weight 61.2 kg (135 lb) 11/17/2022 12:28 PM EDT Height 167.6 cm (5' 6 ) 11/17/2022 12:28 PM EDT Body Mass Index 21.79 11/17/2022 12:28 PM EDT Plan of Treatment Health Maintenance Due Date Last Done Comments LIPID PANEL 1963 DEPRESSION SCREENING 1975 HEPATITIS C SCREENING 1981 HIV ONE-TIME SCREENING (18-65 YEARS) 1981 PNEUMOCOCCAL VACCINES (50+ years) (1 of 2 - PCV) 1982 PAP SMEAR 1984 MAMMOGRAM 2003 COLOGUARD 2008 COLONOSCOPY 2008 COLORECTAL CANCER SCREENING 2008 FIT TEST 2008 FOBT 2008 SIGMOIDOSCOPY 2008 VIRTUAL COLONOSCOPY 2008 RSV VACCINE (1 - Risk 50-74 years 1-dose series) 2013 ZOSTER VACCINES (2 of 2) 08/26/2020 07/01/2020 TSH LEVEL 07/01/2023 07/01/2022 INFLUENZA VACCINE (#1) 2024 , 04/30/2021, 04/30/2021, Additional history exists COVID-19 VACCINE (2024- season) 2025 06/21/2021, 08/29/2020, 08/01/2020 Adult Td,Tdap Booster 08/20/2025 08/21/2015 SMOKING STATUS SCREENING (Once After 26 Yrs) Completed 05/17/2019 HEPATITIS A VACCINES Aged Out No long er eligible based on patient's age to complete this topic HIB VACCINES Aged Out No longer eligi ble based on patient's age to complete this topic MENINGOCOCCAL VACCINES (ACWY) Aged Out No longer eligible based on patient's age to complete this topic MENINGOCOCCAL VACCINES (B) Aged Out N o longer eligible based on patient's age to complete this topic Medical Devices Not on file Procedures Procedure Name Priority Date/Time Associated Diagnosis Comments TSH Routine 07/01/2022 7:18 AM EST Secondary hypothyroidism from Last 3 Months or Most Recently Relevant to Health Maintenance Results * TSH (07/01/2022 7:18 AM EST) TSH 2.60 0.27 - 4.20 uIU/mL [facility] Blood 07/01/2022 7:18 AM EST 07/01/2022 7:21 AM EST us ALIE Ríos LAB BLOOD ORDERABLES Final Re [facility] Organization Address City/State/[facility] Co de Phone Number [address] [address] from Last 3 Months or Most Recently Relevant to Health Maintenance Insurance [facility] [place] [place] [address] [place] [address] [facility] Care Teams Architecture Professor Relationship Specialty Start Date End Date Chari Rabago MD [address] [facility] [place] [address] PCP - General Internal Medicine 07/01/22 Additional Source Comments The information contained in this document represents components of the legal health record. It is not the complete legal health record.[facility]
--- OUTSIDE RECORDS SUMMARY | 2025-03-19 19:32 | XMS_ITS | Encounter Summary ---
Author Organization [facility] Address [address] [address] Phone Care Team Providers Care Etcher Machine Name Role Phone Chari Rabago MD Primary Care Provider Encounter Details Date Type Department Care Team (Late st Contact Info) Description 06/17/2023 Procedure Pass [facility] Endoscopy Admitting Dept Virtual Department [address] [place] [address] Social History Tobacco Use Types Packs/Day Years [...] on filedocumented in this encounter Care Teams Etcher Machine Relationship Specialty Start Date End Date Chari Rabago MD [address] [facility] [place] [address] PCP - General Internal Medicine 07/01/22 documented as of this encounter Additional Source Comments The information contained in this document represents components of the legal health record. It is not the complete legal health record.[facility]
--- OUTSIDE RECORDS SUMMARY | 2025-03-19 19:32 | XMS_ITS | Encounter Summary ---
Author Organization [facility] Address [address] [address] Phone Care Team Providers Care Dairy Farmworker Name Role Phone Jeanmarie Francis DO Primary Care Provider [phone] Michelle Moses NP Primary Care Provider Yue Chaney MD Primary Care Provider [phone] Chari Rabago MD Primary Care Provider Reason for Referral * Physical Therapy (Routine) - Closed Specialty Diagnoses / Procedures Referred By Contac t Referred To Contact Physical Therapy Diagnoses Encounter for rehabilitation System, Provider Not In, [facility] [address] [place] [address] Phone: tel: Referral ID Status Reason Start Date Expiration Date Visits Re quested Visits Authorized [id number] Closed 12/17/2017 12/17/2018 1 1 Encounter Details Date Type Department Care Team (Latest Contact Info) Description 12/17/2017 Transcribe Orders [facility] [address] [place] [phone] Jeanmarie Francis DO [address] [place] [address] [phone] Encounter for rehabilitation (Primary Dx) Social History Tobacco Use Types Packs/Day Years Used Date Smoking Tobacco: Never Assessed Comments Unknown Sex and Gender Information Value Date Recorded Sex Assigned at Not on file Legal Sex Female 9:43 PM EDT Gender Identity Not on file Sexual Orientation Not on file documented as of this encounter Plan of Treatment Scheduled Referrals Name Type Priority Associated Diagnoses Orde r Schedule Ambulatory referral to [facility] Physical Therapy Outpatient Referral Routine Encounter for rehabilitation Ordered: 12/17/2017 documented as of this encounter Visit Diagnoses Diagnosis Encounter for rehabilitation- Primary documented in this encounter Care Teams Dairy Farmworker Relationship Specialty Start Date End Date Jeanmarie Francis DO [address] [place] [address] PCP - General 03/18/17 05/16/19 Michelle Moses NP [address] [place] [address] [email or web address] PCP - General Family Medicine 05/17/19 Yue Chaney MD [address] [facility] [place] [address] PCP - General Internal Medicine 07/12/19 06/30/22 Chari Rabago MD [facility] [place] [address] PCP - General Internal Medicine 07/01/22 documented as of this encounter Additional Source Comments The information contained in this document represents components of the legal health record. It is not the complete legal health record.[facility]
[2025-03-19] MEDS: iohexoL 350 MG/ML 100 ML INFUS..BTL IV (21:19)
[2025-03-19 22:08] VITALS: BP 147/65; PULSE 68; RESP 16; TEMP 36.8; O2SAT 98
--- NOTE | 2025-03-19 22:17 | PC.NURSE ---
RN consulted with MD to confirm whether or not he wanted 1 vs 2 Ls of NS given, per MD only one to be given. duplicate orders were charted as not given
--- NOTE | 2025-03-19 23:11 | PC.NURSE ---
pt requesting additional pain meds, mdd made aware. rn awaiting new orders
[2025-03-20 03:00] VITALS: BP 147/65; PULSE 68; RESP 16; TEMP 36.8; O2SAT 98
== END 2025-03-20 02:00 | disposition home or self-care (01) ==
PROVIDERS: Emergency Provider Student in an Organized Health Care Education/Training Program; PCP Internal Medicine
DX: R10.32 Left lower quadrant pain (principal); Z87.19 Personal history of other diseases of the digestive system; Z87.42 Personal history of other diseases of the female genital tract
CPT/HCPCS: 36415; 74177; 76830; 76856; 80053; 81001; 83690; 85025; 87086; 93975; 96361; 96374; 96375; 96376; 99284; 99285; J2270; J2405; Q9967

== ENCOUNTER → 2025-03-19 19:40 | Outpatient (BNV) | payer BC, SELFPAY | PROVIDERS: Emergency Provider Student in an Organized Health Care Education/Training Program; PCP Internal Medicine; Visit Provider Radiology Diagnostic Radiology | DX: K57.92 Diverticulitis of intestine, part unspecified, without perforation or abscess without bleeding (principal) | CPT/HCPCS: 74177 ==

== ENCOUNTER → 2025-03-20 00:29 | Outpatient (BNV) | payer BC, SELFPAY | PROVIDERS: Emergency Provider Student in an Organized Health Care Education/Training Program; PCP Internal Medicine; Visit Provider Radiology Diagnostic Radiology | DX: R10.32 Left lower quadrant pain (principal) | CPT/HCPCS: 76830; 76856 ==

== ENCOUNTER 2025-04-04 14:10 | Outpatient (AMB) | payer BC, SELFPAY ==
[2025-04-04 14:40] VITALS: BP 122/80; PULSE 73; RESP 16; TEMP 36.6; O2SAT 99; BMI 22.6
--- NOTE | 2025-04-04 14:40 | A.OFFPC_ITS ---
Vital Signs 04/04/25 14:40 Height 5 ft 6 in Weight 140 lb BMI 22.6 BP 122/80 Blood Pressure Location Rt brachial Position Sitting Respiration 16 Pulse 73 Pulse Source Pulse Oximeter Temp 97.9 F Temp Source Oral Pulse Oximetry (%) 99 Oxygen Delivery Method Room Air Intake Visit Reasons: [facility] Intake Note: Pt is here today for her [facility] f/u LLQ pain Lithographic Plate Maker Required: No Allergies Sulfa (Sulfonamide Antibiotics) Allergy (Intermediate, Verified 04/04/25 15:08) Rash cephalexin (From KEFLEX) Allergy (Unknown, Verified 04/04/25 15:08) HIVES methylprednisolone (Medrol) Adverse Reaction (Unknown, Verified 04/04/25 15:08) grandiosity prednisone Adverse Reaction (Unknown, Verified 04/04/25 15:08) grandiosity Medication List - Last Reconciled 04/04/25 by Chari Rabago MD levothyroxine 75 mcg PO DAILY@0600 omeprazole magnesium (Prilosec OTC) 20 mg PO DAILY PRN Tobacco use date assessed: 04/04/25 Dental Screening Dental Screen Date: 04/04/25 Did you have a dental visit in the last 12 months?: Yes Did you have a dental problem in the last 6 months where you did not have access to dental care?: No Was dental information given to patient?: Patient has dentist HPI [facility] HPI Details 59-year-old lady with past medical histo ry significant for recurrent diverticulitis s/p laparoscopic sigmoid resection done by Dr. 09/02/2023 , Multilevel lumbar spondylosis more conspicuous at L3-4, L4-5 and L5-S1 levels, acquired hypothyrodism, here today fo follow up after a recent ER visit complaining of left lower quadrant abdominal pain. She states that she has been doing well, without any abdominal pain since her sigmoid resection last year, until now. Denies having any dysuria , vaginal discharge, fever, but does endorse some nausea and change in bowel habits associated with this. Labs drawn at the ER did not show presence of leukocytosis, chemistries unremarkable, UA showed small leuk esterase. Patient's CT imaging did not show any signs of acute intra-abdominal pathology, presence of a nonobstructing calculus in the right kidney seen, partial colectomy, with few colonic diverticula without acute inflammation noted, no bowel obstruction, pneumatosis or pneumoperitoneum, abdominal aorta normal in caliber, no enlarged abdominopelvic lymph nodes, pelvic contents unremarkable with normal appendix seen.. Pelvic ultrasound showed no ovarian torsion, prominent left periuterine vessels, when correlating to the earlier CT there are asymmetrically enlarged left gonadal veins with narrowing of the left renal vein between the aorta and SMA suggesting nutcracker syndrome. Patient does have an appointment already scheduled to see her OBGYN. She was empirically placed on ciprofloxacin for possible urinary tract infection, and presents today for follow-up. Still having some lower abdominal discomfort mainly in the left lower abdomen but getting better. [facility] Medical History Spondylosis of lumbar spine Skin cancer screening Family history of breast cancer Dense breast tissue on mammogram Lumbar back pain with radiculopathy affecting left lower extremity C. difficile colitis Back pain GERD (gastroesophageal reflux disease) Tear of left supraspinatus tendon Calcific tendinitis of left shoulder Sigmoid diverticulitis History of diverticulitis of colon Irritable bowel syndrome with constipation and diarrhea Menopause Annual visit for general adult medical examination with abnormal findings Chronic leukopenia SALLY positive Cyst of right breast Narrow angle glaucoma suspect Recurrent cold sores Acquired hypothyroidism Surgical History Hx of lumbosacral spine surgery Hx of surgical procedure (~09/02/23) Hx of eye surgery Hx of tonsillectomy H/O colonoscopy Diverticulitis History of back surgery Family History Father Smoker CVD (cardiovascular disease) Mother CVD (cardiovascular disease) Pancreatic cancer, Onset Age: 58 Mental health disorder Maternal Grandfather Depression Maternal Grandmother Alcoholism Paternal Grandfather Alcoholism Paternal Grandmother No problems noted. 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 [employer] Cognitive needs: No Hearing needs: No Vision needs: Yes Female Reproductive History Menstrual Age of Menarche: 11 Date of menopause: 07/15/13 Questionnaire Thrive Questionnaire Date Thrive assessed: 06/03/24 I am a: Patient What is your living situation today?: I have a steady place to live Within the past 12 months, did the food you bought not last and you didn't have the money to get more?: Never true Within the past 12 months, did you worry whether your food would run out before you got money to buy more?: Never true Do you have trouble paying for medicines?: No Do you have trouble getting transportation to medical appointments?: No Do you have trouble paying your heating and electricity bill?: No Do you have trouble taking care of your child, family member or friend?: No Do you have trouble with day-to-day activities such as bathing, preparing meals, shopping, managing finances, etc.?: No Are you currently unemployed and looking for a job?: No Are you interested in more education?: No Please select the resources that you would like help with: None Currently or been in a relationship where the following occur: No concerns reported THRIVE Score: 0 ERICK-7 AMB Questionnaire ERICK-7 Date ERICK - 7 assessed: 06/03/24 Source: Developed by Drs. Victorino Burroughs, Sara Santos, Brody Rodriguez and colleagues, with an educational tami from [employer]. Review of Systems Const All systems reviewed & are unremarkable except as noted in HPI and below ENT Reports Normal hearing present GI Details: Slight discomfort on palpation over left lower quadrant, no rebound or guarding, no mass palpated Reports as per HPI, Denies heartburn and Denies vomiting Neuro Reports Normal hearing present and Denies Sensory deficit (Neuro) Physical exam (Primary Care) Vital Signs: Last Vital Signs Temp 97.9 F 04/04/25 14:40 Pulse 73 04/04/25 14:40 Resp 16 04/04/25 14:40 BP 122/80 04/04/25 14:40 Pulse Ox 99 04/04/25 14:40 Oxygen Delivery Method Room Air 04/04/25 14:40 BMI result Body Mass Index 22.6 Tobacco/Smoking Status: Tobacco use Status Tobacco use date assessed 04/04/25 04/04/25 14:47 Patient Tobacco Use Status Never used Tobacco 04/04/25 14:47 e-Cigarette/Vaping Use Never Used 04/04/25 14:47 Thrive Assessment: Date of Thrive Assessment Date Thrive assessed 06/03/24 04/04/25 14:47 Currently or been in a relationship where the following occur: No concerns reported Const Other: Alert oriented x3, ambulatory normal gait Neck Neck: Yes full ROM, Yes no lymphadenopathy and Yes supple Resp Auscultation: clear to auscultation bilaterally Cardio Other: S1-S2 present regular rate and rhythm GI Palpation (GI): Soft to palpation, Tenderness to palpation present (GI) (Slight discomfort left lower quadrant), no guarding, no hernias and no masses Auscultation: normal bowel sounds General: Yes no CVA tenderness Back/Spine/Pelvis Back: no CVA tenderness Thoracic/Lumbar Spine: thoraco-lumbar ROM normal and straight leg raise negative bilaterally Skin General skin exam: no rashes or lesions noted Neuro General: tone normal, moves all extremities, Normal light touch and pain se nsation and no focal motor deficits Cranial nerves: Yes Normal hearing present Sensory Exam: No Sensory deficit (Neuro) Extrem General: Yes full ROM, Yes no joint enlargement, Yes no pedal edema and Yes normal gait Psych Appearance: grossly normal and well kempt Mental Status: mental status grossly normal Affect: normal affect Coding Level of Care Code Est Pt Level 4 (23688) Complex EM visit Add On G2211 Diagnoses Change in consistency of stool R19.5 Acquired hypothyroidism E03.9 Menopause Z78.0 Assessment & Plan Assessment & Plan (1) Change in consistency of stool: Code(s): R19.5 - Other fecal abnormalities Category: Medical Plan: patient with a history of recurrent diverticulitis, status post laparoscopic sigmoid resection done a year ago, now complaining of acute left lower quadrant pain, with no etiology seen on recent labs and imaging studies done, referred to GI for further evaluation management, will check CBC with differential, and vitamin B12 and folic acid levels. (2) Acquired hypothyroidism: Code(s): E03.9 - Hypothyroidism, unspecified Category: Medical Plan: Thyroid tests ordered today, currently on levothyroxine 75 mcg daily (3) Menopause: Code(s): Z78.0 - Asymptomatic menopausal state Category: Medical Plan: Will check vitamin-D and basic metabolic panel he had reinforced importance of doing regular weight-bearing exercise, taking adequate calcium from dietary sources and vitamin-D 3 at least 2000 units daily Orders: Orders Triiodothyronine T3 Free 06/02/25 E03.9 - Hypothyroidism, unspecified, Z13.1 - Encounter for screening for diabetes mellitus, Z13.220 - Encounter for screening for lipoid disorders, Z78.0 - Asymptomatic menopausal state, Z90.49 - Acquired absence of other specified parts of digestive tract Free T4 (Free Thyroxine) 06/02/25 E03.9 - Hypothyroidism, unspecified, Z13.1 - Encounter for screening for diabetes mellitus, Z13.220 - Encounter for screening for lipoid disorders, Z78.0 - Asymptomatic menopausal state, Z90.49 - Acquired absence of other specified parts of digestive tract Complete Blood Count Auto Diff 06/02/25 E03.9 - Hypothyroidism, unspecified, Z13.1 - Encounter for screening for diabetes mellitus, Z13.220 - Encounter for screening for lipoid disorders, Z78.0 - Asymptomatic menopausal state, Z90.49 - Acquired absence of other specified parts of digestive tract Vitamin D 25-OH Total 06/02/25 E03.9 - Hypothyroidism, unspecified, Z13.1 - Encounter for screening for diabetes mellitus, Z13.220 - Encounter for screening for lipoid disorders, Z78.0 - Asymptomatic menopausal state, Z90.49 - Acquired absence of other specified parts of digestive tract Thyroid Stimulating Hormone 06/02/25 E03.9 - Hypothyroidism, unspecified, Z13.1 - Encounter for screening for diabetes mellitus, Z13.220 - Encounter for screening for lipoid disorders, Z78.0 - Asymptomatic menopausal state, Z90.49 - Acquired absence of other specified parts of digestive tract Basic Metabolic Panel Fasting 06/02/25 E03.9 - Hypothyroidism, unspecified, Z13.1 - Encounter for screening for diabetes mellitus, Z13.220 - Encounter for screening for lipoid disorders, Z78.0 - Asymptomatic menopausal state, Z90.49 - Acquired absence of other specified parts of digestive tract Vitamin B12 and Folate 06/02/25 E03.9 - Hypothyroidism, unspecified, Z13.1 - Encounter for screening for diabetes mellitus, Z13.220 - Encounter for screening for lipoid disorders, Z78.0 - Asymptomatic menopausal state, Z90.49 - Acquired absence of other specified parts of digestive tract Referrals Gastroenterology Referral R19.5 - Other fecal abnormalities, Z90.49 - Acquired absence of other specified parts of digestive tract
== END 2025-04-04 15:35 | disposition home or self-care (01) ==
LOC: HO.HMCC 14:11
PROVIDERS: PCP Internal Medicine; Visit Provider Internal Medicine
DX: R19.5 Other fecal abnormalities (principal); E03.9 Hypothyroidism, unspecified; Z78.0 Asymptomatic menopausal state